=== PATIENT | male | born 1960 | race Caucasian/White ===

== ENCOUNTER → 2017-09-07 09:12 | Outpatient (CLI) | payer OTHER, MEDICAID, SELFPAY ==
[2017-09-07 09:30] LABS: Bacteria Urine None Seen; RBC Urine None Seen (0-5/HPF); WBC Urine None Seen (0-5/HPF)
[2017-09-07 10:53] LABS: Appearance Urine UA CLEAR; Bilirubin Urine UA NEGATIVE (NEGATIVE); Color Urine UA YELLOW; Glucose Urine UA NEGATIVE (Normal); Ketones Urine UA NEGATIVE (NEGATIVE); Leukocyte Esterase Urine UA NEGATIVE (NEGATIVE); Nitrite Urine UA Negative (Negative); Occult Blood Urine UA TRACE-LYSED (Negative); Protein Urine UA NEGATIVE (Negative); Urobilinogen Urine UA 0.2 E.U./dL (0.2)
[2017-09-07 11:34] LABS: Amorphous Sediment Urine 2+; Culture Indicated Urine Cult Not Indicated
[2017-09-07 11:55] LABS: Add Manual Diff / Slide Review NO; Basophils Percent Auto 1.2 % (0-2); Eosinophils Percent Auto 2.2 % (2-4); Hematocrit 49.7 % (41-53); Hemoglobin 17.2 g/dL (13.5-17.5); Lymphocytes Percent Auto 14.6 % (25-40); Mean Corpuscular HGB Conc 34.6 % (30-36); Mean Corpuscular Hemoglobin 34.1 PG (26-34); Mean Corpuscular Volume 98.5 fL (80-100); Monocytes Percent Auto 9.2 % (3-14); Neutrophils Absolute Auto 3800 /uL (3000-5900); Neutrophils Percent Auto 72.8 % (50-75); Platelet Count 207 X10^3/uL (150-400); Red Blood Cell Count 5.05 X10^6/uL (4.5-5.9); Red Cell Distribution Width 12.7 % (11.6-14.8); White Blood Cell Count 5.2 X10^3/uL (4.5-11.0)
[2017-09-07 12:27] LABS: Alanine Aminotransferase 37 IU/L (21-72); Albumin 4.3 g/dL (3.5-5.0); Alkaline Phosphatase 35 U/L (38-126); Aspartate Aminotransferase 35 IU/L (17-59); BUN Creatinine Ratio 13.3 (6-22); Bilirubin Total 0.7 mg/dL (0.2-1.3); Blood Urea Nitrogen 8 mg/dL (9-20); Calcium 9.2 mg/dL (8.4-10.2); Carbon Dioxide 31 mmol/L (22-32); Chloride 95 mmol/L (98-107); Cholesterol 166 mg/dL (140-199); Estimated Glomerular Filt Rate > 60.0 mL/min (>60); Globulin 2.1 g/dL (1.7-4.1); Glucose 72 mg/dL (70-100); HDL Cholesterol 55 mg/dL (40-60); HEMOLYSIS < 15 (0-50); LDL Cholesterol Calculated 95 mg/dL (<100); Potassium 4.3 mmol/L (3.4-5.1); Sodium 135 mmol/L (137-145); Total Protein 6.4 g/dL (6.3-8.2); Triglycerides 79 mg/dL (35-150)
[2017-09-07 12:55] LABS: Prostate Specific Antigen 0.408 ng/mL (0.10-4.00); Thyroid Stimulating Hormone 2.58 uIU/mL (0.47-4.68)
== END ==
PROVIDERS: PCP Family Medicine; Visit Provider Family Medicine
DX: R39.11 Hesitancy of micturition (principal); I25.10 Atherosclerotic heart disease of native coronary artery without angina pectoris; I10 Essential (primary) hypertension
CPT/HCPCS: 36415; 80053; 80061; 81001; 84153; 84443; 85025

== ENCOUNTER 2017-10-07 16:51 | Emergency (ER) | payer OTHER, MEDICAID, SELFPAY ==
[2017-10-07 16:59] VITALS: BP 157/90; PULSE 68; RESP 20; TEMP 36.7; O2SAT 99; BMI 21.2
--- NOTE | 2017-10-07 17:02 | ED.NEUROSD ---
HPI - Neuro Symptoms/Deficit <KT Gonzalez - Last Filed: 10/07/17 22:20> General Chief Complaint: Neuro Symptoms/Deficit Stated Complaint: SENT FOR STROKE WORK UP Time Seen by Provider: 10/07/17 17:20 History of Present Illness HPI Narrative: 57-year-old male sent here for rule out of stroke. Patient states that he has pain into his left hip/buttockss. Pain is also to his left back and radiates down into the left hip/buttocks area down left leg. He was able ambulate in the emergency room. He denies any unilateral weakness. He denies any loss of conscious no headache. No fevers no chills. He denies any other symptoms other than the pain into his left hip and left buttock/leg. He states that he started having pain a yesterday. Worsened a little bit today. He does state that he lifted a heavy box a couple days ago. He denies any loss of bladder or bowel control. No trauma to the area reported although he did say he had a fall where he accidentally tripped a few days ago. No other concerns or complaints. Related Data Home Medications Medication Instructions Recorded Confirmed Lactobacillus acidophilus capsule 1 cap PO DAILY cap 08/28/17 10/07/17 Ubiquinol 50 mg PO DAILY 08/28/17 10/07/17 albuterol sulfate HFA 90 1 puff INHALATION Q4H PRN 08/28/17 10/07/17 mcg/actuation aerosol inhaler methocarbamol 750 mg tablet 750 mg PO BID PRN tab 08/28/17 10/07/17 nitroglycerin 0.4 mg sublingual 0.4 mg SL Q5-15M PRN 08/28/17 10/07/17 tablet tamsulosin 0.4 mg capsule 0.4 mg PO DAILY 08/28/17 10/07/17 trazodone 50 mg tablet 50 - 100 mg PO BEDTIME PRN 08/28/17 10/07/17 acetaminophen 750 mg PO QID 10/07/17 10/07/17 aspirin 81 mg PO DAILY 10/07/17 10/07/17 budesonide 2 puff INHALATION BID 10/07/17 10/07/17 calcium carbonate 2 tab PO BID 10/07/17 10/07/17 carvedilol 1 tab PO BID 10/07/17 10/07/17 cholecalciferol (vitamin D3) 2,000 units PO DAILY 10/07/17 10/07/17 [Vitamin D3] cyanocobalamin (vitamin B-12) 1,000 mcg PO DAILY 10/07/17 10/07/17 [Vitamin B-12] diphenhydramine HCl 50 mg PO BEDTIME PRN 10/07/17 10/07/17 escitalopram oxalate [Lexapro] 10 mg PO DAILY 10/07/17 10/07/17 loratadine 10 mg PO DAILY PRN 10/07/17 10/07/17 magnesium oxide 200 mg PO BEDTIME 10/07/17 10/07/17 multivitamin with minerals 1 tab PO DAILY 10/07/17 10/07/17 simethicone [Mi-Acid Gas Relief] 1 tab PO QID PRN 10/07/17 10/07/17 Previous Rx's Medication Instructions Recorded fexofenadine 180 mg tablet 180 mg PO DAILY #30 tab 09/21/17 tramadol 50 mg tablet 50 mg PO Q6H #120 tab 09/23/17 clotrimazole 1 % topical cream 1 applictn TOP BID #30 gram 09/29/17 lorazepam 1 mg tablet 1 mg PO BID PRN #60 tab 10/06/17 methocarbamol 500 mg PO QID #10 tab 10/07/17 prednisone 20 mg PO DAILY #4 tab 10/07/17 Allergies Allergy/AdvReac Type Severity Reaction Status Date / Time iodine Allergy Intermediate itching, Verified 10/06/17 09:03 swelling latex Allergy Intermediate rash, Verified 10/06/17 09:03 itching procaine [From Novocain] Allergy Intermediate increased Verified 10/06/17 09:03 heart rate atorvastatin AdvReac Intermediate Verified 10/06/17 09:03 lactase [From Dairy Aid] AdvReac Intermediate upset Verified 10/06/17 09:03 stomach montelukast [From Singulair] AdvReac Intermediate causes Verified 10/06/17 09:03 depression to worsen prednisone AdvReac Intermediate makes Verified 10/06/17 09:03 patient feel wired, heart racing Proton Pump Inhibitors AdvReac Intermediate upset Verified 10/06/17 09:03 stomach NSAIDS (Non-Steroidal AdvReac Mild GI upset Verified 10/06/17 09:03 Anti-Inflamma peanuts Allergy Severe swelling Uncoded 08/28/17 13:54 of tongue and throat Review of Systems <KT Gonzalez - Last Filed: 10/07/17 22:20> Constitutional Denies chills, Denies fever(s), Denies lethargy and Denies weakness Eyes Denies change in vision, Denies eye discharge, Denies irritation and Denies loss of vision ENT Ears, Nose, Mouth, and Throat: Denies change in voice, Denies neck pain and Denies sore throat Cardiovascular Denies chest pain, Denies irregular heart rhythm, Denies lightheadedness, Denies palpitations, Denies dyspnea, Denies dyspnea on exertion and Denies orthopnea Respiratory Denies cough, Denies dyspnea, Denies dyspnea on exertion and Denies wheezing Gastrointestinal Gastrointestinal: Denies abdominal pain, Denies change in bowel habits, Denies diarrhea, Denies nausea and Denies vomiting Genitourinary Denies hematuria, Denies flank pain, Denies urinary incontinence and Denies urinary urgency Musculoskeletal Denies neck pain Comments: Left lower back, buttocks and leg pain Integumentary/Breasts Denies pruritus, Denies erythema, Denies rash and Denies wounds Neurologic Denies confusion, Denies loss of vision and Denies weakness Psychiatric Denies anxiety, Denies confusion, Denies depression, Denies homicidal ideation and Denies suicidal ideation Endocrine Denies palpitations Hematologic/Lymphatic Denies easy bruising Allergic/Immunologic Denies wheezing Exam <KT Gonzalez - Last Filed: 10/07/17 22:20> Initial Vital Signs Initial Vital Signs: Vital Signs Temperature 98.1 F 10/07/17 16:59 Pulse Rate 68 10/07/17 16:59 Respiratory Rate 20 10/07/17 16:59 Blood Pressure 157/90 H 10/07/17 16:59 Pulse Oximetry 99 10/07/17 16:59 Const General: cooperative and well developed Nutritional Appearance: well nourished Orientation: alert, awake, oriented x3 and not confused HENSD Mouth: oral mucosae normal and moist mucous membranes Eyes Eyelids: eyelids normal Conjunctivae: conjunctivae normal Sclera: sclerae normal Pupils: PERRL Cardio Rate: regular rate Rhythm: regular rhythm Heart Sounds: no click, no gallops, no murmurs and no rubs Pulses: normal peripheral pulses Back/Spine/Pelvis Other: Tenderness to palpation to the left lumbar paraspinals radiated into the left buttocks and to the left thigh. Distal sensation is intact. Distal range of motion is intact. Distal pulses are intact. Skin General: no rashes or lesions noted, No jaundice and No petechiae Neuro General: alert, oriented x3, gait normal and no focal motor deficits Speech: speech normal <Jazz Marsh DO - Last Filed: 10/08/17 05:13> Initial Vital Signs Initial Vital Signs: Vital Signs Temperature 98.1 F 10/07/17 16:59 Pulse Rate 68 10/07/17 16:59 Respiratory Rate 20 10/07/17 16:59 Blood Pressure 157/90 H 10/07/17 16:59 Pulse Oximetry 99 10/07/17 16:59 Scores <KT Gonzalez - Last Filed: 10/07/17 22:20> NIH Stroke Scale Level of Conciousness: Alert, keenly responsive Ask month/age: Answers both questions correctly. Open/close eyes, close hand: Performs both tasks correctly Best gaze horizontal: Normal Visual house: No visual loss Facial palsy: Normal symetrical movement Left arm drift: No drift for full 10 sec Right arm drift: No drift for full 10 sec Left leg drift: No drift for full 10 sec Right leg drift: No drift for full 10 sec Limb ataxia: Absent Sensory on face/arms/legs: Normal, no sensory loss Best language: No aphasia, normal Dysarthria: Normal Extinction or inattention: No abnormality Total NIH Stroke scale score: 0 Course <KT Gonzalez - Last Filed: 10/07/17 22:20> Orders Ordered: ED Orders 10/07/17 17:18 XR hip w pel if done LT 2V Stat Vital Signs - 8 hr 10/07/17 16:59 10/07/17 17:38 10/07/17 18:07 Temperature 98.1 F Pulse Rate 68 70 60 Respiratory Rate 20 18 13 Blood Pressure 157/90 H Blood Pressure [Left Arm] 134/78 H 128/79 H Pulse Oximetry 99 97 98 10/07/17 18:41 Temperature Pulse Rate 58 L Respiratory Rate 18 Blood Pressure 127/74 H Blood Pressure [Left Arm] Pulse Oximetry 98 <Jazz Marsh DO - Last Filed: 10/08/17 05:13> Orders Ordered: ED Orders 10/07/17 17:18 XR hip w pel if done LT 2V Stat Vital Signs - 8 hr 10/07/17 16:59 10/07/17 17:38 10/07/17 18:07 Temperature 98.1 F Pulse Rate 68 70 60 Respiratory Rate 20 18 13 Blood Pressure 157/90 H Blood Pressure [Left Arm] 134/78 H 128/79 H Pulse Oximetry 99 97 98 10/07/17 18:41 Temperature Pulse Rate 58 L Respiratory Rate 18 Blood Pressure 127/74 H Blood Pressure [Left Arm] Pulse Oximetry 98 MDM - Neuro Symptoms/Deficit <KT Gonzalez - Last Filed: 10/07/17 22:20> Imaging Data Left hip : Radiologist's impression: PROCEDURE: XR HIP W PEL IF DONE LT 2V INDICATIONS: Pain left hip is since yesterday states fell a couple days a TECHNIQUE: AP pelvis with lateral view(s) of the left hip(s). COMPARISON: None. FINDINGS: Bones: No fractures or dislocations. Pelvic ring appears intact. No suspicious bony lesions. Soft tissues: The visualized bowel gas pattern is normal. No suspicious soft tissue calcifications. IMPRESSION: No acute fractures or dislocations. If there is clinical concern for a radiographically occult fracture than a noncontrast MRI would be recommended for further evaluation. Dictated by: Elan Daly M.D. on 10/07/2017 at 17:47 Approved by: Elan Daly M.D. on 10/07/2017 at 17:47 [facility] Narrative Medical decision making narrative: NIH stroke scale of 0-no neurological deficits appreciated on exam. X-ray of the left hip was obtained due to report of fall a few days ago and was negative for any acute fractures. Signs and symptoms presents as lumbar strain with sciatica. [id number] Tylenol as needed for any discomfort. Cyclobenzaprine as prescribed to help with any muscle tension. Short course of prednisone is given to help with anti-inflammatory effects. Follow up with primary care provider the next few days for re-evaluation. For any worsening symptoms return to the emergency room. Discharge Plan Departure Patient Disposition: Home, Self-Care Clinical Impression: Lower back pain Discharge Date/Time: 10/07/17 18:42 Interventions: ED Discharge Assessment Last Done: 10/07/17 18:41 Instructions: DI for Back Strain or Sprain Activity Restrictions/Additional Instructions: X-ray of the left hip was obtained was negative for any acute findings. Neurological exam is normal today. Signs and symptoms presents as lower back strain with sciatica. Use [id number] Tylenol as needed for any discomfort. Muscle relaxer cyclobenzaprine as prescribed use as directed no driving while on the muscle relaxers a can make you feel drowsy. Short course of prednisone is given for anti-inflammatory effects. Follow up with her primary care provider the next few days. Return emergency room for any worsening symptoms. Prescriptions: New prednisone 20 mg tablet 20 mg PO DAILY Qty: 4 RF: 0 methocarbamol 500 mg tablet 500 mg PO QID Qty: 10 RF: 0 No Action lorazepam 1 mg tablet 1 mg PO BID PRN (Reason: anxiety) Qty: 60 RF: 0 trazodone 50 mg tablet 50 - 100 mg PO BEDTIME PRN (Reason: Sleep) RF: 0 methocarbamol 750 mg tablet 750 mg PO BID PRN (Reason: Muscle Spasm) RF: 0 tamsulosin 0.4 mg capsule,extended release 24hr 0.4 mg PO DAILY RF: 0 nitroglycerin [Nitrostat] 0.4 mg tablet, sublingual 0.4 mg SL Q5-15M PRN (Reason: Chest Pain) RF: 0 Lactobacillus acidophilus capsule 1 cap PO DAILY RF: 0 albuterol sulfate [Ventolin HFA] 90 mcg/actuation HFA aerosol inhaler 1 puff INHALATION Q4H PRN (Reason: Wheezing) RF: 0 Ubiquinol capsule 50 mg PO DAILY RF: 0 tramadol 50 mg tablet 50 mg PO Q6H Qty: 120 RF: 0 fexofenadine [Sharon Allergy] 180 mg tablet 180 mg PO DAILY Qty: 30 RF: 0 clotrimazole 1 % cream 1 applictn TOP BID Qty: 30 RF: 0 carvedilol 12.5 mg tablet 1 tab PO BID RF: 0 simethicone [Mi-Acid Gas Relief] 80 mg tablet,chewable 1 tab PO QID PRN (Reason: flatulence) RF: 0 cyanocobalamin (vitamin B-12) [Vitamin B-12] 1,000 mcg Tablet Extended Release 1,000 mcg PO DAILY RF: 0 aspirin 81 mg Tablet,Delayed Release (Dr/Ec) 81 mg PO DAILY RF: 0 acetaminophen 500 mg Tablet 750 mg PO QID RF: 0 diphenhydramine HCl 25 mg Tablet 50 mg PO BEDTIME PRN (Reason: Itching) RF: 0 calcium carbonate 200 mg calcium (500 mg) Tablet,Chewable 2 tab PO BID RF: 0 multivitamin with minerals Tablet 1 tab PO DAILY RF: 0 loratadine 10 mg Tablet 10 mg PO DAILY PRN (Reason: Allergy Symptoms) RF: 0 cholecalciferol (vitamin D3) [Vitamin D3] 1,000 unit Capsule 2,000 units PO DAILY RF: 0 escitalopram oxalate [Lexapro] 10 mg Tablet 10 mg PO DAILY RF: 0 budesonide 180 mcg/actuation Aerosol Powdr Breath Activated 2 puff Inhalation BID RF: 0 magnesium oxide 200 mg magnesium Tablet 200 mg PO BEDTIME RF: 0 Referrals: Haydee Iqbal DO [Primary Care Provider] - <Jazz Marsh DO - Last Filed: 10/08/17 05:13> Cosign ED Attending Cosignature Attestation: I was immediately available in the department for consultation. Documentation has been reviewed. I agree with assessment and plan.
--- NOTE | 2017-10-07 17:18 | DI.RAD.S_ITS ---
PROCEDURE: XR HIP W PEL IF DONE LT 2V INDICATIONS: Pain left hip is since yesterday states fell a couple days a TECHNIQUE: AP pelvis with lateral view(s) of the left hip(s). COMPARISON: None. FINDINGS: Bones: No fractures or dislocations. Pelvic ring appears intact. No suspicious bony lesions. Soft tissues: The visualized bowel gas pattern is normal. No suspicious soft tissue calcifications. IMPRESSION: No acute fractures or dislocations. If there is clinical concern for a radiographically occult fracture than a noncontrast MRI would be recommended for further evaluation. Dictated by: Elan Daly M.D. on 10/07/2017 at 17:47 Approved by: Elan Daly M.D. on 10/07/2017 at 17:47
--- NOTE | 2017-10-07 17:31 | PC.NURSE ---
patient reports pain in his left lower back that radiates down his left buttocks/hip and down the anterior left leg. Denies any falls today but reports that he lifted some heavy groceries.
[2017-10-07 17:38] VITALS: BP 134/78; PULSE 70; RESP 18; O2SAT 97
[2017-10-07 18:07] VITALS: BP 128/79; PULSE 60; RESP 13; O2SAT 98
[2017-10-07 18:41] VITALS: BP 127/74; PULSE 58; RESP 18; O2SAT 98
== END 2017-10-07 18:42 | disposition home or self-care (01) ==
PROVIDERS: Emergency Provider Nurse Practitioner Family; Family Provider Family Medicine; PCP Family Medicine
DX: M54.9 Dorsalgia, unspecified (principal)
CPT/HCPCS: 73502; 99283; 99291

== ENCOUNTER → 2017-11-19 12:44 | Outpatient (CLI) | payer OTHER, MEDICAID, SELFPAY ==
--- NOTE | 2017-11-19 | DI.ECHO.S_ITS ---
[place] [facility]---------+ [facility] +---------+ : : [address] [place] : : : : [id number] : : : : Phone: [phone] Echocardiogram Report + + :Name: JIGAR BENAVIDES Study Date: 11/19/2017 Height: 69 in : :[facility] Exam Location: [facility] Weight: 145 lb : : Gender: Male BSA: 1.8 m2 : :: 1960 Age: 57 yrs BP: 122/78 mmHg: :Reason For Study: Coronary Artery Disease : :Ordering Physician: Callum : :Kaila Performed By: Aviva Joshi : :Referring: CALLUM BRIGHT : + + Interpretation Summary The left ventricle is normal in size. The ejection fraction is estimated to be 55-60%. Possible mild hypokinesis along the basal/mid inferior and inferolateral wall. Assessment of diastolic parameters indicates a relaxation abnormality of the left ventricle, consistent with normal filling pressures. The right ventricle is normal in size and function. Pulmonary artery pressures cannot be estimated because of the lack of a measurable TR jet velocity. There is borderline biatrial enlargement. There is mild mitral regurgitation. There is no other significant valvular heart disease. The aortic root is normal size. Procedure: A two-dimensional transthoracic echocardiogram with color flow and Doppler was performed. The study quality was technically adequate. There is no prior echocardiogram noted for this patient. The patient was in normal sinus rhythm during the exam. Left Ventricle: The left ventricle is normal in size. There is normal left ventricular wall thickness. The ejection fraction is estimated to be 55-60%. Possible mild hypokinesis along the basal/mid inferior and inferolateral wall. Assessment of diastolic parameters indicates a relaxation abnormality of the left ventricle, consistent with normal filling pressures. Right Ventricle: The right ventricle is normal in size and function. Atria: There is borderline biatrial enlargement. The interatrial septum is intact with no evidence for an atrial septal defect. Mitral Valve: The mitral valve is normal in structure and function. There is mild mitral regurgitation. Aortic Valve: The aortic valve is trileaflet. The aortic valve opens well. There is trace aortic regurgitation. Tricuspid Valve: The tricuspid valve is normal in structure and function. There is a trace or physiologic amount of tricuspid regurgitation. Pulmonary artery pressures cannot be estimated because of the lack of a measurable TR jet velocity. Pulmonic Valve: The pulmonic valve is not well seen, but is grossly normal. There is a trace or physiologic amount of pulmonic regurgitation. There is no other significant valvular heart disease. Great Vessels: The aortic root is normal size. The ascending aorta is normal in size. The IVC is of normal diameter and collapses greater than 50% with a sniff. This suggests a low right atrial pressure of 3 mm Hg. Pericardium/ Pleura There is no pericardial effusion. There is no pleural effusion. MMode/2D Measurements & Calculations LVIDd: 5.3 cm LVOT diam: 2.5 cm LVIDs: 3.7 cm Ao root diam: 3.9 cm FS: 30.0 % asc Aorta Diam: 3.4 cm EPSS: 0.65 cm Ao Arch Diam (Prox Trans): 2.6 cm IVSd: 0.93 cm LVPWd: 0.85 cm LV britt. diameter/BSA (cm/m^2): 3.0 LV sys. diameter/BSA (cm/m^2): 2.1 LA A2 area: 17.7 cm2 RA long axis: 4.7 cm LA A4 area: 17.2 cm2 RA area: 17.4 cm2 LA length (vol): 4.5 cm RA vol: 55.0 ml LA vol: 57.4 ml RA : 30.5 ml/m2 LA vol index: 31.9 ml/m2 TAPSE: 1.7 cm Doppler Measurements & Calculations Ao V2 max: 86.8 cm/sec LVOT Max Wilbert: 71.4 cm/sec Ao V2 mean: 61.4 cm/sec LV V1 max P.0 mmHg Ao max P.0 mmHg LV V1 VTI: 13.6 cm Ao mean P.6 mmHg RUPA(I,D): 3.9 cm2 Ao V2 VTI: 17.0 cm RUPA(V,D): 4.1 cm2 sev ratio: 0.80 RUPA indexed to BSA (cm^2/m^2): 2.2 MV E max wilbert: 33.6 cm/sec PA V2 max: 68.3 cm/sec MV A max wilbert: 42.9 cm/sec PA V2 mean: 45.6 cm/sec MV E/A: 0.78 PA mean P.96 mmHg Med Peak E' Wilbert: 5.2 cm/sec PA pr(Accel): 6.6 mmHg E/E' med: 6.5 Lat Peak E' Wilbert: 7.4 cm/sec E/E' lat: 4.6 E/e' average: 5.5 MV dec time: 0.22 sec Reading Physician:SANDY
== END ==
PROVIDERS: Family Provider Family Medicine; PCP Family Medicine; Visit Provider Internal Medicine Cardiovascular Disease
DX: I34.0 Nonrheumatic mitral (valve) insufficiency (principal); I25.10 Atherosclerotic heart disease of native coronary artery without angina pectoris
CPT/HCPCS: 93306

== ENCOUNTER → 2017-12-07 12:29 | Outpatient (CLI) | payer OTHER, MEDICAID, SELFPAY ==
[2017-12-07 14:47] LABS: Hep C Virus Ab w/Reflex Quant NEGATIVE s/c (NEGATIVE)
== END ==
PROVIDERS: PCP Family Medicine; Visit Provider Family Medicine
DX: Z13.9 Encounter for screening, unspecified (principal)
CPT/HCPCS: 36415; 86803

== ENCOUNTER → 2017-12-16 12:29 | Outpatient (CLI) | payer OTHER, MEDICAID, SELFPAY ==
--- NOTE | 2017-12-16 14:57 | DIET.PN ---
Met for an initial nutrition consultation. Pt appears anxious, having difficulty concentrating and blocking out conversation from adjacent room. States he has PTSD. Reports GI problems for 1 1/2 years; dx w/IBS. Tries to eat healthy- whole foods, organic. Is constipated all the time and without meds would never have a BM DX: IBS, constipation dominent. Meds include: MOM AM & PM, multiple meds for heart, depression, pain. Calcium (tot 1750mg daily), Mg-250mg, Vit D 2000IU, [id number], - all those plus MVI Probiotic FOOD ALLERGIES/INTOLERANCE: peanuts (allergy), dairy, eggs ASSESSMENT: Very conscientious eater. Eats no red meat, lots of vegs. Prunes and prune juice to control constipation. Current diet includes a lot of cruciferous vegs. INTERVENTION: Provided ed on IBS, possible foods aggravating IBS. Some patients w/constipation dominant IBS are sensitive to sulfer. Discussed role of emotions on GI health PLAN/GOALS: Avoid high sulfer foods (includes cruciferous vegs, onion, garlic) Keep food record F/U in 2 weeks. If sx do not subside w/DC of sulfer foods, try FODMAP elimination diet to determine other possible sources of problematic foods.
== END ==
PROVIDERS: PCP Family Medicine; Visit Provider Family Medicine
DX: K58.9 Irritable bowel syndrome, unspecified (principal)
CPT/HCPCS: 97802

== ENCOUNTER → 2017-12-30 13:02 | Outpatient (CLI) | payer OTHER, MEDICAID, SELFPAY ==
--- NOTE | 2017-12-31 13:38 | DIET.PN ---
Met for first F/U consult. Did not keep food record, but states he has it all in his mind. Eliminated all high sulfer foods - noticed less bloating but no difference in constipation. Has appt w/GI specialist tomorrow. Dx: IBS Assessment: Elimination of high sulfur foods not effective in helping constipation, though did help alliviate some sx of IBS. Current diet very limited r/t perceived intolerance and food dislikes. Intervention: Provided ed on FODMAP elimination diet, emphasizing need for accurate food/sx records. Plan/goal: Follow FODMAP elimination diet for 2 weeks and f/u to assess effectiveness.
== END ==
PROVIDERS: PCP Family Medicine; Visit Provider Family Medicine
DX: K58.9 Irritable bowel syndrome, unspecified (principal)
CPT/HCPCS: 97803

== ENCOUNTER 2018-01-12 12:00 | Outpatient (RCR) | payer OTHER, MEDICAID, SELFPAY ==
--- NOTE | 2017-12-09 12:39 | PT.OIE ---
Current Diagnoses Primary osteoarthritis, right shoulder (12/09/17) Pain in right shoulder (12/09/17) Stiffness of right shoulder, not elsewhere classified (12/09/17) Unspecified disorder of synovium and tendon, right shoulder (12/09/17) Bicipital tendinitis, right shoulder (12/09/17) Calcific tendinitis of right shoulder (12/09/17) Past Medical History (Last Reviewed 10/26/17 @ 14:20 by Haydee Iqbal DO) Anxiety (Chronic 1959) Asthma (Chronic 1977) Cataracts, bilateral (Chronic 2015) Chronic back pain (Chronic 1994) Constipation (Chronic Unknown) Coronary artery disease (Chronic 2004) Depression (Chronic 1959) Fibromyalgia (Chronic 1992) Frequent urination (Chronic 1999) Low testosterone (Chronic 2014) PTSD (post-traumatic stress disorder) (Chronic 1999) Chickenpox (Resolved Unknown) Colon polyps (Resolved 2016) Foot pain (Resolved 2015) Measles (Resolved Unknown) Myocardial infarction (Resolved 2004) Shoulder pain (Resolved 2016) Past Surgical History (Last Reviewed 10/26/17 @ 14:20 by Haydee Iqbal DO) History of throat surgery (Resolved 2010) Provider Visit Care Team Role Provider Type Haydee Iqbal DO Attending Provider Physician Family Provider Primary Care Provider Specialty: Family Practice Address: [address] [place] [address] Email: [email or web address] Physical Therapy Initial Evaluation PT-OP-A Visit Information Start: 12/09/17 12:01 Freq: Status: Active Protocol: Document 12/09/17 11:15 DCW (Rec: 12/09/17 12:37 [facility] [id number]) Out-Patient Physical Therapy Visit Information Visit Information Visit Type Initial Evaluation Visit Start Time 11:15 Visit Stop Time 12:00 Total Visit Minutes 45 Visit Number 1 Number of FIXED WING PILOT Visits 0 Evaluation Information Evaluation Date 12/09/17 PT-OP-B Current Condition Start: 12/09/17 12:01 Freq: Status: Active Protocol: Document 12/09/17 11:15 DCW (Rec: 12/09/17 12:37 [facility] [id number]) Current Condition History of Current Condition Onset Date one year Current Complaints Shoulder pain, decreased ROM History of Current Condition Pt is a 57 year old male presenting with a one year history of right shoulder pain . Pt notes no obvious trauma which began his pain, but notes he has been diagnosed with severe arthritis in his shoulder. Also admits to a fall onto his right side when tripping on his shoelaces crossing the street in May, which worsened his pain, but reports his pain had been ongoing prior to that incident . Pt notes his pain is generally a 6/10, but increased to an 8/10 with lifting or using his laptop mouse, and causes him to be unable to swing a golf club or do any deep cleaning in his apartment, like scrubbing the tub or tiles. Pt was previously seen by an Orthopedist, and was diagnosed with rotator cuff tendopathy, calcific tendonitis, and GH arthritis. Skilled PT was recommended, with an emphasis on ROM, R/C strengthening, STM , and modalities for pain control and decreased inflammation Treatment Goals Patient/Caregiver Goals Pt would like to return to golf, be able to clean his apartment with no pain, and be able to lift without pain. Current Functional Impairments (Reported) Functional Limitations- ADL's Unable to perform deep- cleaning activities at home Functional Limitations- Recreation/ Unable to swing a golf club Hobbies PT-OP-C Subjective Start: 12/09/17 12:01 Freq: Status: Active Protocol: Document 12/09/17 11:15 DCW (Rec: 12/09/17 12:37 DCW [id number]) Patient Questionnaires Quick Dash- Upper Extremity Quick Dash UE Score 43.18% Quick Dash UE Impairment 40 to 59% Impaired (Score 40- 59) OP-PT Pain Assessment Pain Assessment Grid Paper Pain Assessment Grid Completed Yes Location Right Shoulder Pain Location Details Anteriolateral Shoulder Intensity 6 Scale Used Numeric (1 - 10) Frequency Constant Pain Aggravating Factors Activity Lifting Pain Alleviating Factors Heat Inactivity PT-OP-E Functional Tests Start: 12/09/17 12:37 Freq: Status: Active Protocol: Document 12/09/17 11:15 DCW (Rec: 12/09/17 12:39 DCW [id number]) Functional Tests Vilmaey's Scratch Test Action 1: The subject is instructed to touch the opposite shoulder with his/her hand. This motion checks Glenohumeral adduction, internal rotation , horizontal adduction and scapular protraction Action 2: The subject is instructed to place his/her arm overhead and reach behind the neck to touch his/her upper back. This motion checks Glenohumeral abduction, external rotation and scapular upward rotation and elevation. Action 3: The subject puts his/her hand on the lower back and reaches upward as far as possible. This motion checks glenohumeral adduction, internal rotation and scapular retraction with downward rotation Action 1- Left Posterior opposite Shoulder Action 1- Right Posterior opposite Shoulder Action 2- Left T4 Action 2- Right T1 Action 3- Left T5 Action 3- Right T12 PT-OP-F Manual Assessment Start: 12/09/17 12:01 Freq: Status: Active Protocol: Document 12/09/17 11:15 DCW (Rec: 12/09/17 12:37 DCW [id number]) Manual Assessments Soft Tissue Assessment Soft Tissue Mobility Assessment Biceps Tendon - Tenderness to Palpation 3/4 = Wincing and withdrawal Subacromial Space - Tenderness to Palpation 3/4 = Wincing and withdrawal Infraspinatus - Tenderness to Palpation 2/4 = Pain with Wincing Supraspinatus - Tenderness to Palpation 2/4 = Pain with Wincing PT-OP-J Posture/Palpation/Skin Start: 12/09/17 12:01 Freq: Status: Active Protocol: Document 12/09/17 11:15 DCW (Rec: 12/09/17 12:37 DCW [id number]) Posture Evaluation Position Sitting Evaluation View Anterior Shoulder Posture (R) Forward (R) Elevated PT-OP-K Range of Motion Start: 12/09/17 12:01 Freq: Status: Active Protocol: Document 12/09/17 11:15 DCW (Rec: 12/09/17 12:37 [facility] [id number]) Shoulder Goniometric Range of Motion Shoulder Measured in Degrees Right Active Testing Position Sitting Flexion 154 Abduction 118 External Rotation at 0 degrees Abduction 30 Left Active Shoulder ROM WFL Yes Shoulder ROM Limitations Shoulder ROM Limitations Pain PT-OP-L Special Tests Start: 12/09/17 12:01 Freq: Status: Active Protocol: Document 12/09/17 11:15 DCW (Rec: 12/09/17 12:37 [facility] [id number]) Special Tests Shoulder Special Tests Saran's Biceps Test Results Positive Speed's Biceps Test Results Positive Neer Impingement Test Results Positive Lift-Off Rotator Cuff Test Results Difficulty lifting Peguero Alfred Impingement Test Results Positive Drop Arm Rotator Cuff Test Results Negative Biceps Load II Test Test Results Significant Pain Belly Press Test Results Mild Anterior pain AC Joint Compression Test Results Negative PT-OP-M Strength Start: 12/09/17 12:01 Freq: Status: Active Protocol: Document 12/09/17 11:15 DCW (Rec: 12/09/17 12:37 DCW [id number]) Shoulder Strength Shoulder Manual Muscle Testing Right Flexion 4- Good- Abduction (C5) 4- Good- External Rotation 4 Good Internal Rotation 4 Good Comments Pt appeared to be limited secondary to pain rather than true muscle weakness PT-OP-T Assessment and Plan Start: 12/09/17 12:01 Freq: Status: Active Protocol: Document 12/09/17 11:15 DCW (Rec: 12/09/17 12:37 DC [id number]) Physical Therapy Assessment Rehab Potential Rehabilitation Potential Good Evaluation Complexity Number of Personal Factors/Comorbidities 3 or More Number of Body Systems Impaired 4 or More Clinical Presentation at Evaluation Evolving Impairments Impairments Activity Tolerance Functional Activities Pain Posture ROM Soft Tissue Mobility Strength Other Concerns Barriers to Rehabilitation HTN, Fibromyalgia, Cardiovascular disease, Anxiety/PTSD, Osteoarthritis Goals Five Impairment Appley Scratch Test Senior Care Goal (LTG) Right shoulder = Left Shoulder LTG Duration 02/08/18 Four Impairment Right shoulder weakness Short Term Goal (STG) R shoulder MMT to grossly 4+/5 STG Duration 01/08/18 Three Impairment Limited ROM Short Term Goal (STG) Pt right shoulder ROM to WNL STG Duration 01/08/18 Senior Care Goal (LTG) Pt right shoulder ROM to pain- free WNL LTG Duration 02/08/18 Two Impairment Activity Participation Short Term Goal (STG) Pt to play 9 holes of golf with no increased symptoms STG Duration 01/08/18 Cfd Engineer Goal (LTG) Pt to scrub bathroom with no increased symptoms LTG Duration 02/08/18 One Impairment Pt does not have an independent home exercise program Short Term Goal (STG) Pt to be independent and consistent with an appropriate HEP STG Duration 01/08/18 Assessment Summary Assessment Pt presents with multiple shoulder limitations, with signs and symptoms most consistent with subacromial impingement, bicepital tendonitis, and supraspinatus calcific tendonitis. Pt should benefit from skilled therapy focusing on ROM and strengthening, Manual therapy to decrease muscle tone and increase subacromial joint space, modalities to decrease inflammation and pain, and taping. Additionally, pt may benefit from trial of Iontophoresis with Dexamethasone to decrease inflammation. Unfortunately, pt does have a history of anti -inflammatory medications causing a stomach ache, and if he does not tolerate Dexamethasone, may still benefit from Iontophoresis with Acetic Acid for treatment of Calcific Tendonitis. Physical Therapy Plan Frequency and Duration Frequency of Treatment 2x/Week Duration of Treatment 2 months Plan of Care Start Date 12/09/17 Plan of Care End Date 02/08/18 Therapeutic Interventions Therapeutic Interventions Aquatic Therapy Home Exercise Program Joint Mobilizations Manual Therapy Patient/Caregiver Education Self-Care/Home Management Soft Tissue Mobilization Taping Therapeutic Activities Therapeutic Exercises Modalities Cold Pack/Ice Massage Electric Stimulation Hot Packs Iontophoresis Ultrasound Next Visit Focus/Plan Next Note Type Treatment Note Next Visit Plan ROM, Strengthening, STM, joint mobilization
--- NOTE | 2017-12-15 14:11 | PT.OTN ---
Current Diagnoses Primary osteoarthritis, right shoulder (12/15/17) Unspecified disorder of synovium and tendon, right shoulder (12/15/17) Calcific tendinitis of right shoulder (12/15/17) Physical Therapy Treatment Note PT-OP-A Visit Information Start: 12/09/17 12:01 Freq: Status: Active Protocol: Document 12/15/17 12:00 GGD (Rec: 12/15/17 14:11 GGD [id number]) Out-Patient Physical Therapy Visit Information Visit Information Visit Type Treatment Note Visit Start Time 12:00 Visit Stop Time 12:50 Total Visit Minutes 50 Visit Number 2 Number of DIE FORGER Visits 1 Evaluation Information Evaluation Date 12/09/17 PT-OP-B Current Condition Start: 12/09/17 12:01 Freq: Status: Active Protocol: Document 12/09/17 11:15 DCW (Rec: 12/09/17 12:37 DCW [id number]) Current Condition History of Current Condition Onset Date one year Current Complaints Shoulder pain, decreased ROM History of Current Condition Pt is a 57 year old male presenting with a one year history of right shoulder pain . Pt notes no obvious trauma which began his pain, but notes he has been diagnosed with severe arthritis in his shoulder. Also admits to a fall onto his right side when tripping on his shoelaces crossing the street in May, which worsened his pain, but reports his pain had been ongoing prior to that incident . Pt notes his pain is generally a 6/10, but increased to an 8/10 with lifting or using his laptop mouse, and causes him to be unable to swing a golf club or do any deep cleaning in his apartment, like scrubbing the tub or tiles. Pt was previously seen by an Orthopedist, and was diagnosed with rotator cuff tendopathy, calcific tendonitis, and GH arthritis. Skilled PT was recommended, with an emphasis on ROM, R/C strengthening, STM , and modalities for pain control and decreased inflammation Treatment Goals Patient/Caregiver Goals Pt would like to return to golf, be able to clean his apartment with no pain, and be able to lift without pain. Current Functional Impairments (Reported) Functional Limitations- ADL's Unable to perform deep- cleaning activities at home Functional Limitations- Recreation/ Unable to swing a golf club Hobbies PT-OP-C Subjective Start: 12/09/17 12:01 Freq: Status: Active Protocol: Document 12/15/17 12:00 GGD (Rec: 12/15/17 14:11 GGD [email or web address]) OP-PT Subjective Patient Comments Patient Comments Pt states his shoulder is aches today. PT-OP-E Functional Tests Start: 12/09/17 12:37 Freq: Status: Active Protocol: Document 12/09/17 11:15 DCW (Rec: 12/09/17 12:39 DCW [id number]) Functional Tests Apley's Scratch Test Action 1: The subject is instructed to touch the opposite shoulder with his/her hand. This motion checks Glenohumeral adduction, internal rotation , horizontal adduction and scapular protraction Action 2: The subject is instructed to place his/her arm overhead and reach behind the neck to touch his/her upper back. This motion checks Glenohumeral abduction, external rotation and scapular upward rotation and elevation. Action 3: The subject puts his/her hand on the lower back and reaches upward as far as possible. This motion checks glenohumeral adduction, internal rotation and scapular retraction with downward rotation Action 1- Left Posterior opposite Shoulder Action 1- Right Posterior opposite Shoulder Action 2- Left T4 Action 2- Right T1 Action 3- Left T5 Action 3- Right T12 PT-OP-F Manual Assessment Start: 12/09/17 12:01 Freq: Status: Active Protocol: Document 12/09/17 11:15 DCW (Rec: 12/09/17 12:37 DCW [id number]) Manual Assessments Soft Tissue Assessment Soft Tissue Mobility Assessment Biceps Tendon - Tenderness to Palpation 3/4 = Wincing and withdrawal Subacromial Space - Tenderness to Palpation 3/4 = Wincing and withdrawal Infraspinatus - Tenderness to Palpation 2/4 = Pain with Wincing Supraspinatus - Tenderness to Palpation 2/4 = Pain with Wincing PT-OP-J Posture/Palpation/Skin Start: 12/09/17 12:01 Freq: Status: Active Protocol: Document 12/09/17 11:15 DCW (Rec: 12/09/17 12:37 DCW [id number]) Posture Evaluation Position Sitting Evaluation View Anterior Shoulder Posture (R) Forward (R) Elevated PT-OP-K Range of Motion Start: 12/09/17 12:01 Freq: Status: Active Protocol: Document 12/09/17 11:15 DCW (Rec: 12/09/17 12:37 DCW [id number]) Shoulder Goniometric Range of Motion Shoulder Measured in Degrees Right Active Testing Position Sitting Flexion 154 Abduction 118 External Rotation at 0 degrees Abduction 30 Left Active Shoulder ROM WFL Yes Shoulder ROM Limitations Shoulder ROM Limitations Pain PT-OP-L Special Tests Start: 12/09/17 12:01 Freq: Status: Active Protocol: Document 12/09/17 11:15 DCW (Rec: 12/09/17 12:37 DCW [id number]) Special Tests Shoulder Special Tests Yergason's Biceps Test Results Positive Speed's Biceps Test Results Positive Neer Impingement Test Results Positive Lift-Off Rotator Cuff Test Results Difficulty lifting Peguero Alfred Impingement Test Results Positive Drop Arm Rotator Cuff Test Results Negative Biceps Load II Test Test Results Significant Pain Belly Press Test Results Mild Anterior pain AC Joint Compression Test Results Negative PT-OP-M Strength Start: 12/09/17 12:01 Freq: Status: Active Protocol: Document 12/09/17 11:15 DCW (Rec: 12/09/17 12:37 DCW [id number]) Shoulder Strength Shoulder Manual Muscle Testing Right Flexion 4- Good- Abduction (C5) 4- Good- External Rotation 4 Good Internal Rotation 4 Good Comments Pt appeared to be limited secondary to pain rather than true muscle weakness PT-OP-Q Treatments Start: 12/09/17 12:01 Freq: Status: Active Protocol: Document 12/15/17 12:00 GGD (Rec: 12/15/17 14:11 GGD [email or web address]) Cardio Equipment Upper Body Ergometer (UBE) Duration (Minutes) 4 RPM 90 Therapeutic Exercises Supine Exercises 3 Supine Exercise Name supine punches Side right Resistance 3# Reps/Minutes 10 2 Supine Exercise Name Wand ER Side right 1 Supine Exercise Name Wand flexion Side right Standing Exercises 2 Standing Exercise Name Shoulder extension Side bilateral Resistance Level 2 Equipment Used Thara band Reps/Minutes 20 1 Standing Exercise Name rows Side right Resistance level 2 Reps/Minutes 20 Manual Therapy Treatment Soft Tissue Mobilization 1 Body Location UT, pec, infraspinatus Mobilization Type Myofascial Release Sustained Pressure Intensity/Depth Superficial Body Position Hooklying Joint Mobilizations 1 Joint glenohumeral Direction posterior, inferior Grade II Body Position Hooklying PT-OP-R Modalities Start: 12/09/17 12:01 Freq: Status: Active Protocol: Document 12/15/17 12:00 GGD (Rec: 12/15/17 14:11 GGD [id number]) Hot Pack/Cold Pack Treatment Hot Pack Location right shoulder Patient Position Hooklying Treatment Duration (minutes) 10 Patient Tolerance Good PT-OP-T Assessment and Plan Start: 12/09/17 12:01 Freq: Status: Active Protocol: Document 12/15/17 12:00 GGD (Rec: 12/15/17 14:11 GGD [email or web address]) Physical Therapy Assessment Assessment Summary Assessment Pt fatigued quickly with strengthening exercise. He had good tolerance to AAROM. He was tender with STM and joint mobs. Physical Therapy Plan Frequency and Duration Frequency of Treatment 2x/Week Duration of Treatment 2 months Plan of Care Start Date 12/09/17 Plan of Care End Date 02/08/18 Next Visit Focus/Plan Next Note Type Treatment Note Next Visit Plan Review exercises, progress ROM and strengthening.
--- NOTE | 2017-12-17 14:28 | PT.OTN ---
Current Diagnoses Primary osteoarthritis, right shoulder (12/17/17) Unspecified disorder of synovium and tendon, right shoulder (12/17/17) Calcific tendinitis of right shoulder (12/17/17) Physical Therapy Treatment Note PT-OP-A Visit Information Start: 12/09/17 12:01 Freq: Status: Active Protocol: Document 12/17/17 13:45 DCW (Rec: 12/17/17 14:28 DCW [id number]) Out-Patient Physical Therapy Visit Information Visit Information Visit Type Treatment Note Visit Start Time 13:45 Visit Stop Time 14:35 Total Visit Minutes 50 Visit Number 3 Number of TRANSPORTATION ECONOMICS TEACHER Visits 0 Evaluation Information Evaluation Date 12/09/17 PT-OP-B Current Condition Start: 12/09/17 12:01 Freq: Status: Active Protocol: Document 12/09/17 11:15 DCW (Rec: 12/09/17 12:37 DCW [id number]) Current Condition History of Current Condition Onset Date one year Current Complaints Shoulder pain, decreased ROM History of Current Condition Pt is a 57 year old male presenting with a one year history of right shoulder pain . Pt notes no obvious trauma which began his pain, but notes he has been diagnosed with severe arthritis in his shoulder. Also admits to a fall onto his right side when tripping on his shoelaces crossing the street in May, which worsened his pain, but reports his pain had been ongoing prior to that incident . Pt notes his pain is generally a 6/10, but increased to an 8/10 with lifting or using his laptop mouse, and causes him to be unable to swing a golf club or do any deep cleaning in his apartment, like scrubbing the tub or tiles. Pt was previously seen by an Orthopedist, and was diagnosed with rotator cuff tendopathy, calcific tendonitis, and GH arthritis. Skilled PT was recommended, with an emphasis on ROM, R/C strengthening, STM , and modalities for pain control and decreased inflammation Treatment Goals Patient/Caregiver Goals Pt would like to return to golf, be able to clean his apartment with no pain, and be able to lift without pain. Current Functional Impairments (Reported) Functional Limitations- ADL's Unable to perform deep- cleaning activities at home Functional Limitations- Recreation/ Unable to swing a golf club Hobbies PT-OP-C Subjective Start: 12/09/17 12:01 Freq: Status: Active Protocol: Document 12/17/17 13:45 DCW (Rec: 12/17/17 14:28 DCW [id number]) OP-PT Subjective Patient Comments Patient Comments Pt reports he fell in his apartment last week, landing on his right elbow PT-OP-E Functional Tests Start: 12/09/17 12:37 Freq: Status: Active Protocol: Document 12/09/17 11:15 DCW (Rec: 12/09/17 12:39 DCW [id number]) Functional Tests Apley's Scratch Test Action 1: The subject is instructed to touch the opposite shoulder with his/her hand. This motion checks Glenohumeral adduction, internal rotation , horizontal adduction and scapular protraction Action 2: The subject is instructed to place his/her arm overhead and reach behind the neck to touch his/her upper back. This motion checks Glenohumeral abduction, external rotation and scapular upward rotation and elevation. Action 3: The subject puts his/her hand on the lower back and reaches upward as far as possible. This motion checks glenohumeral adduction, internal rotation and scapular retraction with downward rotation Action 1- Left Posterior opposite Shoulder Action 1- Right Posterior opposite Shoulder Action 2- Left T4 Action 2- Right T1 Action 3- Left T5 Action 3- Right T12 PT-OP-F Manual Assessment Start: 12/09/17 12:01 Freq: Status: Active Protocol: Document 12/09/17 11:15 DCW (Rec: 12/09/17 12:37 DCW [id number]) Manual Assessments Soft Tissue Assessment Soft Tissue Mobility Assessment Biceps Tendon - Tenderness to Palpation 3/4 = Wincing and withdrawal Subacromial Space - Tenderness to Palpation 3/4 = Wincing and withdrawal Infraspinatus - Tenderness to Palpation 2/4 = Pain with Wincing Supraspinatus - Tenderness to Palpation 2/4 = Pain with Wincing PT-OP-J Posture/Palpation/Skin Start: 12/09/17 12:01 Freq: Status: Active Protocol: Document 12/09/17 11:15 DCW (Rec: 12/09/17 12:37 DCW [id number]) Posture Evaluation Position Sitting Evaluation View Anterior Shoulder Posture (R) Forward (R) Elevated PT-OP-K Range of Motion Start: 12/09/17 12:01 Freq: Status: Active Protocol: Document 12/09/17 11:15 DCW (Rec: 12/09/17 12:37 DCW [id number]) Shoulder Goniometric Range of Motion Shoulder Measured in Degrees Right Active Testing Position Sitting Flexion 154 Abduction 118 External Rotation at 0 degrees Abduction 30 Left Active Shoulder ROM WFL Yes Shoulder ROM Limitations Shoulder ROM Limitations Pain PT-OP-L Special Tests Start: 12/09/17 12:01 Freq: Status: Active Protocol: Document 12/09/17 11:15 DCW (Rec: 12/09/17 12:37 DCW [id number]) Special Tests Shoulder Special Tests Yergason's Biceps Test Results Positive Speed's Biceps Test Results Positive Neer Impingement Test Results Positive Lift-Off Rotator Cuff Test Results Difficulty lifting Peguero Alfred Impingement Test Results Positive Drop Arm Rotator Cuff Test Results Negative Biceps Load II Test Test Results Significant Pain Belly Press Test Results Mild Anterior pain AC Joint Compression Test Results Negative PT-OP-M Strength Start: 12/09/17 12:01 Freq: Status: Active Protocol: Document 12/09/17 11:15 DCW (Rec: 12/09/17 12:37 DCW [id number]) Shoulder Strength Shoulder Manual Muscle Testing Right Flexion 4- Good- Abduction (C5) 4- Good- External Rotation 4 Good Internal Rotation 4 Good Comments Pt appeared to be limited secondary to pain rather than true muscle weakness PT-OP-Q Treatments Start: 12/09/17 12:01 Freq: Status: Active Protocol: Document 12/17/17 13:45 DCW (Rec: 12/17/17 14:28 DCW [id number]) Cardio Equipment Upper Body Ergometer (UBE) Duration (Minutes) 4 RPM 60 Therapeutic Exercises Sitting Exercises GH Pulleys Sitting Exercise Name Flexion, Abduction, Internal Rotation Standing Exercises Shoulder Extension Standing Exercise Name Ext /c wand Shoulder flexion Standing Exercise Name Flex /c wand Side bilateral 2 Standing Exercise Name Shoulder extension Side bilateral Resistance Level 2 Equipment Used Thara band Reps/Minutes 20 1 Standing Exercise Name rows Side right Resistance level 2 Reps/Minutes 20 Manual Therapy Treatment Soft Tissue Mobilization 1 Body Location UT, pec, infraspinatus Mobilization Type Myofascial Release Sustained Pressure Intensity/Depth Superficial Body Position Hooklying Joint Mobilizations 1 Joint glenohumeral Direction posterior, inferior Grade II Body Position Hooklying PT-OP-R Modalities Start: 12/09/17 12:01 Freq: Status: Active Protocol: Document 12/17/17 13:45 DCW (Rec: 12/17/17 14:28 DCW [id number]) Hot Pack/Cold Pack Treatment Hot Pack Location right shoulder Patient Position Hooklying Treatment Duration (minutes) 10 Patient Tolerance Good PT-OP-T Assessment and Plan Start: 12/09/17 12:01 Freq: Status: Active Protocol: Document 12/17/17 13:45 DCW (Rec: 12/17/17 14:28 DCW [id number]) Physical Therapy Assessment Impairments Impairments Activity Tolerance Functional Activities Pain Posture ROM Soft Tissue Mobility Strength Goals Five Impairment Appley Scratch Test Paper Products Machine Operator Goal (LTG) Right shoulder = Left Shoulder LTG Duration 02/08/18 Four Impairment Right shoulder weakness Short Term Goal (STG) R shoulder MMT to grossly 4+/5 STG Duration 01/08/18 Three Impairment Limited ROM Short Term Goal (STG) Pt right shoulder ROM to WNL STG Duration 01/08/18 Fpc Goal (LTG) Pt right shoulder ROM to pain- free WNL LTG Duration 02/08/18 Two Impairment Activity Participation Short Term Goal (STG) Pt to play 9 holes of golf with no increased symptoms STG Duration 01/08/18 Fpc Goal (LTG) Pt to scrub bathroom with no increased symptoms LTG Duration 02/08/18 One Impairment Pt does not have an independent home exercise program Short Term Goal (STG) Pt to be independent and consistent with an appropriate HEP STG Duration 01/08/18 Assessment Summary Assessment Pt tenderness continues, however he is tolerating more TherEx more than last visit. Physical Therapy Plan Frequency and Duration Frequency of Treatment 2x/Week Duration of Treatment 2 months Plan of Care Start Date 12/09/17 Plan of Care End Date 02/08/18 Therapeutic Interventions Therapeutic Interventions Aquatic Therapy Home Exercise Program Joint Mobilizations Manual Therapy Patient/Caregiver Education Self-Care/Home Management Soft Tissue Mobilization Taping Therapeutic Activities Therapeutic Exercises Modalities Cold Pack/Ice Massage Electric Stimulation Hot Packs Iontophoresis Ultrasound Next Visit Focus/Plan Next Note Type Treatment Note Next Visit Plan Review exercises, progress ROM and strengthening.
--- NOTE | 2017-12-22 16:05 | PT.OTN ---
Current Diagnoses Primary osteoarthritis, right shoulder (12/22/17) Unspecified disorder of synovium and tendon, right shoulder (12/22/17) Calcific tendinitis of right shoulder (12/22/17) Physical Therapy Treatment Note PT-OP-A Visit Information Start: 12/09/17 12:01 Freq: Status: Active Protocol: Document 12/22/17 12:19 EA (Rec: 12/22/17 12:57 EA [id number]) Out-Patient Physical Therapy Visit Information Visit Information Visit Type Treatment Note Visit Start Time 12:15 Visit Stop Time 13:05 Total Visit Minutes 50 Visit Number 4 Number of CONTROL ROOM OPERATOR Visits 0 PT-OP-B Current Condition Start: 12/09/17 12:01 Freq: Status: Active Protocol: Document 12/09/17 11:15 DCW (Rec: 12/09/17 12:37 DCW [id number]) Current Condition History of Current Condition Onset Date one year Current Complaints Shoulder pain, decreased ROM History of Current Condition Pt is a 57 year old male presenting with a one year history of right shoulder pain . Pt notes no obvious trauma which began his pain, but notes he has been diagnosed with severe arthritis in his shoulder. Also admits to a fall onto his right side when tripping on his shoelaces crossing the street in May, which worsened his pain, but reports his pain had been ongoing prior to that incident . Pt notes his pain is generally a 6/10, but increased to an 8/10 with lifting or using his laptop mouse, and causes him to be unable to swing a golf club or do any deep cleaning in his apartment, like scrubbing the tub or tiles. Pt was previously seen by an Orthopedist, and was diagnosed with rotator cuff tendopathy, calcific tendonitis, and GH arthritis. Skilled PT was recommended, with an emphasis on ROM, R/C strengthening, STM , and modalities for pain control and decreased inflammation Treatment Goals Patient/Caregiver Goals Pt would like to return to golf, be able to clean his apartment with no pain, and be able to lift without pain. Current Functional Impairments (Reported) Functional Limitations- ADL's Unable to perform deep- cleaning activities at home Functional Limitations- Recreation/ Unable to swing a golf club Hobbies PT-OP-C Subjective Start: 12/09/17 12:01 Freq: Status: Active Protocol: Document 12/22/17 12:58 EA (Rec: 12/22/17 12:59 EA [id number]) OP-PT Subjective Patient Comments Patient Comments Patient rfeports right shoulder pain increased after doing laundry; states demar is constant and wake him up in the evening. Patient denies any overhead activities. Patient Reported Progress Same PT-OP-E Functional Tests Start: 12/09/17 12:37 Freq: Status: Active Protocol: Document 12/09/17 11:15 DCW (Rec: 12/09/17 12:39 DCW [id number]) Functional Tests Apley's Scratch Test Action 1: The subject is instructed to touch the opposite shoulder with his/her hand. This motion checks Glenohumeral adduction, internal rotation , horizontal adduction and scapular protraction Action 2: The subject is instructed to place his/her arm overhead and reach behind the neck to touch his/her upper back. This motion checks Glenohumeral abduction, external rotation and scapular upward rotation and elevation. Action 3: The subject puts his/her hand on the lower back and reaches upward as far as possible. This motion checks glenohumeral adduction, internal rotation and scapular retraction with downward rotation Action 1- Left Posterior opposite Shoulder Action 1- Right Posterior opposite Shoulder Action 2- Left T4 Action 2- Right T1 Action 3- Left T5 Action 3- Right T12 PT-OP-F Manual Assessment Start: 12/09/17 12:01 Freq: Status: Active Protocol: Document 12/09/17 11:15 DCW (Rec: 12/09/17 12:37 DCW [id number]) Manual Assessments Soft Tissue Assessment Soft Tissue Mobility Assessment Biceps Tendon - Tenderness to Palpation 3/4 = Wincing and withdrawal Subacromial Space - Tenderness to Palpation 3/4 = Wincing and withdrawal Infraspinatus - Tenderness to Palpation 2/4 = Pain with Wincing Supraspinatus - Tenderness to Palpation 2/4 = Pain with Wincing PT-OP-J Posture/Palpation/Skin Start: 12/09/17 12:01 Freq: Status: Active Protocol: Document 12/09/17 11:15 DCW (Rec: 12/09/17 12:37 DCW [id number]) Posture Evaluation Position Sitting Evaluation View Anterior Shoulder Posture (R) Forward (R) Elevated PT-OP-K Range of Motion Start: 12/09/17 12:01 Freq: Status: Active Protocol: Document 12/09/17 11:15 DCW (Rec: 12/09/17 12:37 DCW [id number]) Shoulder Goniometric Range of Motion Shoulder Measured in Degrees Right Active Testing Position Sitting Flexion 154 Abduction 118 External Rotation at 0 degrees Abduction 30 Left Active Shoulder ROM WFL Yes Shoulder ROM Limitations Shoulder ROM Limitations Pain PT-OP-L Special Tests Start: 12/09/17 12:01 Freq: Status: Active Protocol: Document 12/09/17 11:15 DCW (Rec: 12/09/17 12:37 DCW [id number]) Special Tests Shoulder Special Tests Yergason's Biceps Test Results Positive Speed's Biceps Test Results Positive Neer Impingement Test Results Positive Lift-Off Rotator Cuff Test Results Difficulty lifting Peguero Alfred Impingement Test Results Positive Drop Arm Rotator Cuff Test Results Negative Biceps Load II Test Test Results Significant Pain Belly Press Test Results Mild Anterior pain AC Joint Compression Test Results Negative PT-OP-M Strength Start: 12/09/17 12:01 Freq: Status: Active Protocol: Document 12/09/17 11:15 DCW (Rec: 12/09/17 12:37 DCW [id number]) Shoulder Strength Shoulder Manual Muscle Testing Right Flexion 4- Good- Abduction (C5) 4- Good- External Rotation 4 Good Internal Rotation 4 Good Comments Pt appeared to be limited secondary to pain rather than true muscle weakness PT-OP-Q Treatments Start: 12/09/17 12:01 Freq: Status: Active Protocol: Document 12/22/17 12:19 EA (Rec: 12/22/17 12:57 EA [id number]) Cardio Equipment Upper Body Ergometer (UBE) Duration (Minutes) 6 RPM 60 Therapeutic Exercises Sitting Exercises GH Pulleys Sitting Exercise Name Flexion, Abduction, Internal Rotation Reps/Minutes x 5SH x 10 reps each. Standing Exercises Shoulder flexion Standing Exercise Name Flex /c wand Side bilateral 2 Standing Exercise Name Shoulder extension Side bilateral Resistance Level 2 Equipment Used Thara band Reps/Minutes 20 1 Standing Exercise Name rows Side right Resistance level 2 Reps/Minutes 20 Manual Therapy Treatment Soft Tissue Mobilization 1 Body Location UT, pec, infraspinatus Mobilization Type Myofascial Release Sustained Pressure Intensity/Depth Superficial Body Position Hooklying Joint Mobilizations 1 Joint glenohumeral Direction posterior, inferior Grade II Body Position Hooklying PT-OP-R Modalities Start: 12/09/17 12:01 Freq: Status: Active Protocol: Document 12/22/17 12:19 FREDERICK (Rec: 12/22/17 12:57 EA [id number]) Hot Pack/Cold Pack Treatment Hot Pack Location right shoulder Patient Position Hooklying Treatment Duration (minutes) 10 Patient Tolerance Good Ultrasound Therapy Treatment Right Anterior Shoulder Treatment Duration (minutes) 5 Patient Position Supine Frequency Setting (mHz) 1 Intensity Setting (w/cm2) 1.0 PT-OP-T Assessment and Plan Start: 12/09/17 12:01 Freq: Status: Active Protocol: Document 12/22/17 12:19 FREDERICK (Rec: 12/22/17 12:57 EA [id number]) Physical Therapy Assessment Assessment Summary Assessment Tolerated treatment. anterior right shoulder still operator. Patient recommended ice pack application x 2 per day and decrease heavy lifting using the right shoulder. Physical Therapy Plan Next Visit Focus/Plan Next Note Type Treatment Note Next Visit Plan Review exercises, progress ROM and strengthening.
--- NOTE | 2017-12-25 13:21 | PT.OTN ---
Current Diagnoses Primary osteoarthritis, right shoulder (12/25/17) Unspecified disorder of synovium and tendon, right shoulder (12/25/17) Calcific tendinitis of right shoulder (12/25/17) Physical Therapy Treatment Note PT-OP-A Visit Information Start: 12/09/17 12:01 Freq: Status: Active Protocol: Document 12/22/17 12:19 EA (Rec: 12/22/17 12:57 EA [id number]) Out-Patient Physical Therapy Visit Information Visit Information Visit Type Treatment Note Visit Start Time 12:15 Visit Stop Time 13:05 Total Visit Minutes 50 Visit Number 4 Number of MEDIA LAW FACULTY MEMBER Visits 0 PT-OP-B Current Condition Start: 12/09/17 12:01 Freq: Status: Active Protocol: Document 12/09/17 11:15 DCW (Rec: 12/09/17 12:37 DCW [id number]) Current Condition History of Current Condition Onset Date one year Current Complaints Shoulder pain, decreased ROM History of Current Condition Pt is a 57 year old male presenting with a one year history of right shoulder pain . Pt notes no obvious trauma which began his pain, but notes he has been diagnosed with severe arthritis in his shoulder. Also admits to a fall onto his right side when tripping on his shoelaces crossing the street in May, which worsened his pain, but reports his pain had been ongoing prior to that incident . Pt notes his pain is generally a 6/10, but increased to an 8/10 with lifting or using his laptop mouse, and causes him to be unable to swing a golf club or do any deep cleaning in his apartment, like scrubbing the tub or tiles. Pt was previously seen by an Orthopedist, and was diagnosed with rotator cuff tendopathy, calcific tendonitis, and GH arthritis. Skilled PT was recommended, with an emphasis on ROM, R/C strengthening, STM , and modalities for pain control and decreased inflammation Treatment Goals Patient/Caregiver Goals Pt would like to return to golf, be able to clean his apartment with no pain, and be able to lift without pain. Current Functional Impairments (Reported) Functional Limitations- ADL's Unable to perform deep- cleaning activities at home Functional Limitations- Recreation/ Unable to swing a golf club Hobbies PT-OP-C Subjective Start: 12/09/17 12:01 Freq: Status: Active Protocol: Document 12/25/17 13:06 SA (Rec: 12/25/17 13:20 SA [id number]) OP-PT Subjective Patient Comments Patient Comments Pt reports increased R shoulde pain after doing laundry and grocery shipping. Patient Reported Progress Same PT-OP-E Functional Tests Start: 12/09/17 12:37 Freq: Status: Active Protocol: Document 12/09/17 11:15 DCW (Rec: 12/09/17 12:39 DCW [id number]) Functional Tests Apley's Scratch Test Action 1: The subject is instructed to touch the opposite shoulder with his/her hand. This motion checks Glenohumeral adduction, internal rotation , horizontal adduction and scapular protraction Action 2: The subject is instructed to place his/her arm overhead and reach behind the neck to touch his/her upper back. This motion checks Glenohumeral abduction, external rotation and scapular upward rotation and elevation. Action 3: The subject puts his/her hand on the lower back and reaches upward as far as possible. This motion checks glenohumeral adduction, internal rotation and scapular retraction with downward rotation Action 1- Left Posterior opposite Shoulder Action 1- Right Posterior opposite Shoulder Action 2- Left T4 Action 2- Right T1 Action 3- Left T5 Action 3- Right T12 PT-OP-F Manual Assessment Start: 12/09/17 12:01 Freq: Status: Active Protocol: Document 12/09/17 11:15 DCW (Rec: 12/09/17 12:37 DCW [id number]) Manual Assessments Soft Tissue Assessment Soft Tissue Mobility Assessment Biceps Tendon - Tenderness to Palpation 3/4 = Wincing and withdrawal Subacromial Space - Tenderness to Palpation 3/4 = Wincing and withdrawal Infraspinatus - Tenderness to Palpation 2/4 = Pain with Wincing Supraspinatus - Tenderness to Palpation 2/4 = Pain with Wincing PT-OP-J Posture/Palpation/Skin Start: 12/09/17 12:01 Freq: Status: Active Protocol: Document 12/09/17 11:15 DCW (Rec: 12/09/17 12:37 DCW [id number]) Posture Evaluation Position Sitting Evaluation View Anterior Shoulder Posture (R) Forward (R) Elevated PT-OP-K Range of Motion Start: 12/09/17 12:01 Freq: Status: Active Protocol: Document 12/09/17 11:15 DCW (Rec: 12/09/17 12:37 [facility] [id number]) Shoulder Goniometric Range of Motion Shoulder Measured in Degrees Right Active Testing Position Sitting Flexion 154 Abduction 118 External Rotation at 0 degrees Abduction 30 Left Active Shoulder ROM WFL Yes Shoulder ROM Limitations Shoulder ROM Limitations Pain PT-OP-L Special Tests Start: 12/09/17 12:01 Freq: Status: Active Protocol: Document 12/09/17 11:15 DCW (Rec: 12/09/17 12:37 [facility] [id number]) Special Tests Shoulder Special Tests Yergason's Biceps Test Results Positive Speed's Biceps Test Results Positive Neer Impingement Test Results Positive Lift-Off Rotator Cuff Test Results Difficulty lifting Peguero Alfred Impingement Test Results Positive Drop Arm Rotator Cuff Test Results Negative Biceps Load II Test Test Results Significant Pain Belly Press Test Results Mild Anterior pain AC Joint Compression Test Results Negative PT-OP-M Strength Start: 12/09/17 12:01 Freq: Status: Active Protocol: Document 12/09/17 11:15 DCW (Rec: 12/09/17 12:37 [facility] [id number]) Shoulder Strength Shoulder Manual Muscle Testing Right Flexion 4- Good- Abduction (C5) 4- Good- External Rotation 4 Good Internal Rotation 4 Good Comments Pt appeared to be limited secondary to pain rather than true muscle weakness PT-OP-Q Treatments Start: 12/09/17 12:01 Freq: Status: Active Protocol: Document 12/25/17 13:06 SA (Rec: 12/25/17 13:20 SA [id number]) Cardio Equipment Upper Body Ergometer (UBE) Duration (Minutes) 5 RPM 60 Therapeutic Exercises Supine Exercises 3 Supine Exercise Name Scapular protraction Reps/Minutes 20 Sidelying Exercises Shoulder ER Resistance none Reps/Minutes 20 Sitting Exercises GH Pulleys Sitting Exercise Name Flexion, Abduction, Internal Rotation Reps/Minutes x 5SH x 10 reps each. Standing Exercises Shoulder flexion Standing Exercise Name Flex /c wand Side bilateral 2 Standing Exercise Name Shoulder extension Side bilateral Resistance Level 2 Equipment Used Thara band Reps/Minutes 20 1 Standing Exercise Name rows Side right Resistance level 2 Reps/Minutes 20 Manual Therapy Treatment Soft Tissue Mobilization 1 Body Location UT, pec, infraspinatus Mobilization Type Myofascial Release Sustained Pressure Intensity/Depth Superficial Body Position Hooklying PT-OP-R Modalities Start: 12/09/17 12:01 Freq: Status: Active Protocol: Document 12/25/17 13:06 SA (Rec: 12/25/17 13:20 SA [id number]) Hot Pack/Cold Pack Treatment Hot Pack Location right shoulder Patient Position Supine Treatment Duration (minutes) 10 Patient Tolerance Good PT-OP-T Assessment and Plan Start: 12/09/17 12:01 Freq: Status: Active Protocol: Document 12/25/17 13:06 SA (Rec: 12/25/17 13:20 [id number]) Physical Therapy Assessment Rehab Potential Rehabilitation Potential Good Assessment Summary Assessment Tolerated treatment well, states he prefers Hot pack vs cold pack Physical Therapy Plan Next Visit Focus/Plan Next Note Type Treatment Note Next Visit Plan Education provided regarding sleep position and work station set up with handout given to reduce irritation of R shoulder.
--- NOTE | 2017-12-29 13:32 | PT.OTN ---
Current Diagnoses Primary osteoarthritis, right shoulder (12/29/17) Unspecified disorder of synovium and tendon, right shoulder (12/29/17) Calcific tendinitis of right shoulder (12/29/17) Physical Therapy Treatment Note PT-OP-A Visit Information Start: 12/09/17 12:01 Freq: Status: Active Protocol: Document 12/22/17 12:19 EA (Rec: 12/22/17 12:57 EA [id number]) Out-Patient Physical Therapy Visit Information Visit Information Visit Type Treatment Note Visit Start Time 12:15 Visit Stop Time 13:05 Total Visit Minutes 50 Visit Number 4 Number of SPOT MAN Visits 0 PT-OP-B Current Condition Start: 12/09/17 12:01 Freq: Status: Active Protocol: Document 12/09/17 11:15 DCW (Rec: 12/09/17 12:37 DCW [id number]) Current Condition History of Current Condition Onset Date one year Current Complaints Shoulder pain, decreased ROM History of Current Condition Pt is a 57 year old male presenting with a one year history of right shoulder pain . Pt notes no obvious trauma which began his pain, but notes he has been diagnosed with severe arthritis in his shoulder. Also admits to a fall onto his right side when tripping on his shoelaces crossing the street in May, which worsened his pain, but reports his pain had been ongoing prior to that incident . Pt notes his pain is generally a 6/10, but increased to an 8/10 with lifting or using his laptop mouse, and causes him to be unable to swing a golf club or do any deep cleaning in his apartment, like scrubbing the tub or tiles. Pt was previously seen by an Orthopedist, and was diagnosed with rotator cuff tendopathy, calcific tendonitis, and GH arthritis. Skilled PT was recommended, with an emphasis on ROM, R/C strengthening, STM , and modalities for pain control and decreased inflammation Treatment Goals Patient/Caregiver Goals Pt would like to return to golf, be able to clean his apartment with no pain, and be able to lift without pain. Current Functional Impairments (Reported) Functional Limitations- ADL's Unable to perform deep- cleaning activities at home Functional Limitations- Recreation/ Unable to swing a golf club Hobbies PT-OP-C Subjective Start: 12/09/17 12:01 Freq: Status: Active Protocol: Document 12/29/17 13:22 SA (Rec: 12/29/17 13:32 SA [email or web address]) OP-PT Subjective Patient Comments Patient Comments [place] and my shoulder is painful today. Patient Reported Progress Same PT-OP-E Functional Tests Start: 12/09/17 12:37 Freq: Status: Active Protocol: Document 12/09/17 11:15 DCW (Rec: 12/09/17 12:39 DCW [id number]) Functional Tests Apley's Scratch Test Action 1: The subject is instructed to touch the opposite shoulder with his/her hand. This motion checks Glenohumeral adduction, internal rotation , horizontal adduction and scapular protraction Action 2: The subject is instructed to place his/her arm overhead and reach behind the neck to touch his/her upper back. This motion checks Glenohumeral abduction, external rotation and scapular upward rotation and elevation. Action 3: The subject puts his/her hand on the lower back and reaches upward as far as possible. This motion checks glenohumeral adduction, internal rotation and scapular retraction with downward rotation Action 1- Left Posterior opposite Shoulder Action 1- Right Posterior opposite Shoulder Action 2- Left T4 Action 2- Right T1 Action 3- Left T5 Action 3- Right T12 PT-OP-F Manual Assessment Start: 12/09/17 12:01 Freq: Status: Active Protocol: Document 12/09/17 11:15 DCW (Rec: 12/09/17 12:37 DCW [id number]) Manual Assessments Soft Tissue Assessment Soft Tissue Mobility Assessment Biceps Tendon - Tenderness to Palpation 3/4 = Wincing and withdrawal Subacromial Space - Tenderness to Palpation 3/4 = Wincing and withdrawal Infraspinatus - Tenderness to Palpation 2/4 = Pain with Wincing Supraspinatus - Tenderness to Palpation 2/4 = Pain with Wincing PT-OP-J Posture/Palpation/Skin Start: 12/09/17 12:01 Freq: Status: Active Protocol: Document 12/09/17 11:15 DCW (Rec: 12/09/17 12:37 DCW [id number]) Posture Evaluation Position Sitting Evaluation View Anterior Shoulder Posture (R) Forward (R) Elevated PT-OP-K Range of Motion Start: 12/09/17 12:01 Freq: Status: Active Protocol: Document 12/09/17 11:15 DCW (Rec: 12/09/17 12:37 [facility] [id number]) Shoulder Goniometric Range of Motion Shoulder Measured in Degrees Right Active Testing Position Sitting Flexion 154 Abduction 118 External Rotation at 0 degrees Abduction 30 Left Active Shoulder ROM WFL Yes Shoulder ROM Limitations Shoulder ROM Limitations Pain PT-OP-L Special Tests Start: 12/09/17 12:01 Freq: Status: Active Protocol: Document 12/09/17 11:15 DCW (Rec: 12/09/17 12:37 [facility] [id number]) Special Tests Shoulder Special Tests Yergason's Biceps Test Results Positive Speed's Biceps Test Results Positive Neer Impingement Test Results Positive Lift-Off Rotator Cuff Test Results Difficulty lifting Peguero Alfred Impingement Test Results Positive Drop Arm Rotator Cuff Test Results Negative Biceps Load II Test Test Results Significant Pain Belly Press Test Results Mild Anterior pain AC Joint Compression Test Results Negative PT-OP-M Strength Start: 12/09/17 12:01 Freq: Status: Active Protocol: Document 12/09/17 11:15 DCW (Rec: 12/09/17 12:37 DC [id number]) Shoulder Strength Shoulder Manual Muscle Testing Right Flexion 4- Good- Abduction (C5) 4- Good- External Rotation 4 Good Internal Rotation 4 Good Comments Pt appeared to be limited secondary to pain rather than true muscle weakness PT-OP-Q Treatments Start: 12/09/17 12:01 Freq: Status: Active Protocol: Document 12/29/17 13:22 SA (Rec: 12/29/17 13:32 SA [email or web address]) Cardio Equipment Upper Body Ergometer (UBE) Duration (Minutes) 6 RPM 60 Therapeutic Exercises Supine Exercises 3 Supine Exercise Name Scapular protraction with 0# as pt could not tolerate 1# Side right Sidelying Exercises Shoulder ER Sidelying Exercise Name shoulder ER with no weight Side right Sitting Exercises GH Pulleys Side bilateral Reps/Minutes 2 minutes Standing Exercises Shoulder Extension Side bilateral Reps/Minutes 20 Shoulder flexion Side bilateral Reps/Minutes 20 2 Standing Exercise Name Scapular retraction Side bilateral Resistance #2 Theraband Manual Therapy Treatment Soft Tissue Mobilization 1 Mobilization Type Rolling Trigger Point Release Intensity/Depth Moderate Body Position Supine Comments R shoulder, upper traps, scalenes Taping R shoulder Kinesio taping Type of Tape Kinesio Tape PT-OP-R Modalities Start: 12/09/17 12:01 Freq: Status: Active Protocol: Document 12/29/17 13:22 (Rec: 12/29/17 13:32 [email or web address]) Hot Pack/Cold Pack Treatment Hot Pack Patient Position Supine Patient Tolerance Good Comments 10 minutes PT-OP-T Assessment and Plan Start: 12/09/17 12:01 Freq: Status: Active Protocol: Document 12/29/17 13:22 (Rec: 12/29/17 13:32 [email or web address]) Physical Therapy Plan Next Visit Focus/Plan Next Note Type Treatment Note Next Visit Plan Re-assess Kinesio taping, continue with shoulder strengthening ther ex, re visit work station set up as pt is to obtain new office chair.
--- NOTE | 2018-01-01 15:38 | PT.OTN ---
Current Diagnoses Primary osteoarthritis, right shoulder (01/01/18) Unspecified disorder of synovium and tendon, right shoulder (01/01/18) Calcific tendinitis of right shoulder (01/01/18) Physical Therapy Treatment Note PT-OP-A Visit Information Start: 12/09/17 12:01 Freq: Status: Active Protocol: Document 12/29/17 13:22 SA (Rec: 12/30/17 15:08 SA [id number]) Out-Patient Physical Therapy Visit Information Visit Information Visit Type Treatment Note Visit Start Time 12:15 Visit Stop Time 13:12 Visit Number 6 Number of GARDENING MANAGER Visits 2 Evaluation Information Evaluation Date 12/09/17 PT-OP-B Current Condition Start: 12/09/17 12:01 Freq: Status: Active Protocol: Document 12/09/17 11:15 DCW (Rec: 12/09/17 12:37 DCW [id number]) Current Condition History of Current Condition Onset Date one year Current Complaints Shoulder pain, decreased ROM History of Current Condition Pt is a 57 year old male presenting with a one year history of right shoulder pain . Pt notes no obvious trauma which began his pain, but notes he has been diagnosed with severe arthritis in his shoulder. Also admits to a fall onto his right side when tripping on his shoelaces crossing the street in May, which worsened his pain, but reports his pain had been ongoing prior to that incident . Pt notes his pain is generally a 6/10, but increased to an 8/10 with lifting or using his laptop mouse, and causes him to be unable to swing a golf club or do any deep cleaning in his apartment, like scrubbing the tub or tiles. Pt was previously seen by an Orthopedist, and was diagnosed with rotator cuff tendopathy, calcific tendonitis, and GH arthritis. Skilled PT was recommended, with an emphasis on ROM, R/C strengthening, STM , and modalities for pain control and decreased inflammation Treatment Goals Patient/Caregiver Goals Pt would like to return to golf, be able to clean his apartment with no pain, and be able to lift without pain. Current Functional Impairments (Reported) Functional Limitations- ADL's Unable to perform deep- cleaning activities at home Functional Limitations- Recreation/ Unable to swing a golf club Hobbies PT-OP-C Subjective Start: 12/09/17 12:01 Freq: Status: Active Protocol: Document 01/01/18 15:24 SA (Rec: 01/01/18 15:37 SA [email or web address]) OP-PT Subjective Patient Comments Patient Comments Feeling pretty good, I think the tapin really helped. Still having some pain but not as intense. OP-PT Pain Assessment Location Right Shoulder Pain Location Details R shoulder Intensity 3 Scale Used Numeric (1 - 10) Description With Movement PT-OP-E Functional Tests Start: 12/09/17 12:37 Freq: Status: Active Protocol: Document 12/09/17 11:15 DCW (Rec: 12/09/17 12:39 DCW [id number]) Functional Tests Apley's Scratch Test Action 1: The subject is instructed to touch the opposite shoulder with his/her hand. This motion checks Glenohumeral adduction, internal rotation , horizontal adduction and scapular protraction Action 2: The subject is instructed to place his/her arm overhead and reach behind the neck to touch his/her upper back. This motion checks Glenohumeral abduction, external rotation and scapular upward rotation and elevation. Action 3: The subject puts his/her hand on the lower back and reaches upward as far as possible. This motion checks glenohumeral adduction, internal rotation and scapular retraction with downward rotation Action 1- Left Posterior opposite Shoulder Action 1- Right Posterior opposite Shoulder Action 2- Left T4 Action 2- Right T1 Action 3- Left T5 Action 3- Right T12 PT-OP-F Manual Assessment Start: 12/09/17 12:01 Freq: Status: Active Protocol: Document 12/09/17 11:15 DCW (Rec: 12/09/17 12:37 DCW [id number]) Manual Assessments Soft Tissue Assessment Soft Tissue Mobility Assessment Biceps Tendon - Tenderness to Palpation 3/4 = Wincing and withdrawal Subacromial Space - Tenderness to Palpation 3/4 = Wincing and withdrawal Infraspinatus - Tenderness to Palpation 2/4 = Pain with Wincing Supraspinatus - Tenderness to Palpation 2/4 = Pain with Wincing PT-OP-J Posture/Palpation/Skin Start: 12/09/17 12:01 Freq: Status: Active Protocol: Document 12/09/17 11:15 DCW (Rec: 12/09/17 12:37 DCW [id number]) Posture Evaluation Position Sitting Evaluation View Anterior Shoulder Posture (R) Forward (R) Elevated PT-OP-K Range of Motion Start: 12/09/17 12:01 Freq: Status: Active Protocol: Document 12/09/17 11:15 DCW (Rec: 12/09/17 12:37 DCW [id number]) Shoulder Goniometric Range of Motion Shoulder Measured in Degrees Right Active Testing Position Sitting Flexion 154 Abduction 118 External Rotation at 0 degrees Abduction 30 Left Active Shoulder ROM WFL Yes Shoulder ROM Limitations Shoulder ROM Limitations Pain PT-OP-L Special Tests Start: 12/09/17 12:01 Freq: Status: Active Protocol: Document 12/09/17 11:15 DCW (Rec: 12/09/17 12:37 KSW [id number]) Special Tests Shoulder Special Tests Yergaanna's Biceps Test Results Positive Speed's Biceps Test Results Positive Neer Impingement Test Results Positive Lift-Off Rotator Cuff Test Results Difficulty lifting Peguero Alfred Impingement Test Results Positive Drop Arm Rotator Cuff Test Results Negative Biceps Load II Test Test Results Significant Pain Belly Press Test Results Mild Anterior pain AC Joint Compression Test Results Negative PT-OP-M Strength Start: 12/09/17 12:01 Freq: Status: Active Protocol: Document 12/09/17 11:15 DCW (Rec: 12/09/17 12:37 DCW [id number]) Shoulder Strength Shoulder Manual Muscle Testing Right Flexion 4- Good- Abduction (C5) 4- Good- External Rotation 4 Good Internal Rotation 4 Good Comments Pt appeared to be limited secondary to pain rather than true muscle weakness PT-OP-Q Treatments Start: 12/09/17 12:01 Freq: Status: Active Protocol: Document 01/01/18 15:24 SA (Rec: 01/01/18 15:37 SA [email or web address]) Cardio Equipment Upper Body Ergometer (UBE) Duration (Minutes) 6 RPM 60 Therapeutic Exercises Supine Exercises 3 Supine Exercise Name Scapular protraction with 0# as pt could not tolerate 1# Side right Resistance 1# Reps/Minutes 20 Sidelying Exercises Shoulder ER Sidelying Exercise Name shoulder ER with no weight Side right Sitting Exercises GH Pulleys Side bilateral Reps/Minutes 2 minutes Standing Exercises scapular retraction Resistance 2# Theraband Reps/Minutes 20 Shoulder Extension Side bilateral Reps/Minutes 20 Shoulder flexion Standing Exercise Name Flex /c wand Side bilateral Reps/Minutes 20 Manual Therapy Treatment Soft Tissue Mobilization 1 Body Location UT, Interscap, Infraspinatus Mobilization Type Rolling Trigger Point Release Intensity/Depth Moderate Body Position Supine Comments R shoulder, upper traps, scalenes PT-OP-R Modalities Start: 12/09/17 12:01 Freq: Status: Active Protocol: Document 01/01/18 15:37 SA (Rec: 01/01/18 15:37 SA [email or web address]) Hot Pack/Cold Pack Treatment Hot Pack Patient Position Supine Treatment Duration (minutes) 10 Patient Tolerance Good PT-OP-T Assessment and Plan Start: 12/09/17 12:01 Freq: Status: Active Protocol: Document 01/01/18 15:24 SA (Rec: 01/01/18 15:37 SA [email or web address]) Physical Therapy Plan Frequency and Duration Frequency of Treatment 2x/Week Duration of Treatment 2 months Plan of Care Start Date 12/09/17 Plan of Care End Date 02/08/18 Therapeutic Interventions Other Therapeutic Interventions Re-applied Kinesio taping to R shoulder. Advised pt to remove tape at 3 days to avoid skin irritation. Next Visit Focus/Plan Next Note Type Treatment Note Next Visit Plan Progress scapular and shoulder strengtening program. Continued eduction for posture /positioning to avoid impingment.
--- NOTE | 2018-01-05 15:39 | PT.OTN ---
Current Diagnoses Primary osteoarthritis, right shoulder (01/05/18) Unspecified disorder of synovium and tendon, right shoulder (01/05/18) Calcific tendinitis of right shoulder (01/05/18) Physical Therapy Treatment Note PT-OP-A Visit Information Start: 12/09/17 12:01 Freq: Status: Active Protocol: Document 12/29/17 13:22 SA (Rec: 12/30/17 15:08 SA [id number]) Out-Patient Physical Therapy Visit Information Visit Information Visit Type Treatment Note Visit Start Time 12:15 Visit Stop Time 13:12 Visit Number 6 Number of FRAME MAKER Visits 2 Evaluation Information Evaluation Date 12/09/17 PT-OP-B Current Condition Start: 12/09/17 12:01 Freq: Status: Active Protocol: Document 12/09/17 11:15 DCW (Rec: 12/09/17 12:37 DCW [id number]) Current Condition History of Current Condition Onset Date one year Current Complaints Shoulder pain, decreased ROM History of Current Condition Pt is a 57 year old male presenting with a one year history of right shoulder pain . Pt notes no obvious trauma which began his pain, but notes he has been diagnosed with severe arthritis in his shoulder. Also admits to a fall onto his right side when tripping on his shoelaces crossing the street in May, which worsened his pain, but reports his pain had been ongoing prior to that incident . Pt notes his pain is generally a 6/10, but increased to an 8/10 with lifting or using his laptop mouse, and causes him to be unable to swing a golf club or do any deep cleaning in his apartment, like scrubbing the tub or tiles. Pt was previously seen by an Orthopedist, and was diagnosed with rotator cuff tendopathy, calcific tendonitis, and GH arthritis. Skilled PT was recommended, with an emphasis on ROM, R/C strengthening, STM , and modalities for pain control and decreased inflammation Treatment Goals Patient/Caregiver Goals Pt would like to return to golf, be able to clean his apartment with no pain, and be able to lift without pain. Current Functional Impairments (Reported) Functional Limitations- ADL's Unable to perform deep- cleaning activities at home Functional Limitations- Recreation/ Unable to swing a golf club Hobbies PT-OP-C Subjective Start: 12/09/17 12:01 Freq: Status: Active Protocol: Document 01/05/18 15:26 SA (Rec: 01/05/18 15:35 SA [email or web address]) OP-PT Subjective Patient Comments Patient Comments Pt has increased c/o shoulder pain today, blamces change in weather. Admits to being inconsistant with HEP. OP-PT Pain Assessment Location Right Shoulder Pain Location Details R shoulder Intensity 4 Scale Used Numeric (1 - 10) Description With Movement Other Pain Aggravating Factors Pt continues to work at work station with poor positioning PT-OP-E Functional Tests Start: 12/09/17 12:37 Freq: Status: Active Protocol: Document 12/09/17 11:15 DCW (Rec: 12/09/17 12:39 DCW [id number]) Functional Tests Apley's Scratch Test Action 1: The subject is instructed to touch the opposite shoulder with his/her hand. This motion checks Glenohumeral adduction, internal rotation , horizontal adduction and scapular protraction Action 2: The subject is instructed to place his/her arm overhead and reach behind the neck to touch his/her upper back. This motion checks Glenohumeral abduction, external rotation and scapular upward rotation and elevation. Action 3: The subject puts his/her hand on the lower back and reaches upward as far as possible. This motion checks glenohumeral adduction, internal rotation and scapular retraction with downward rotation Action 1- Left Posterior opposite Shoulder Action 1- Right Posterior opposite Shoulder Action 2- Left T4 Action 2- Right T1 Action 3- Left T5 Action 3- Right T12 PT-OP-F Manual Assessment Start: 12/09/17 12:01 Freq: Status: Active Protocol: Document 12/09/17 11:15 DCW (Rec: 12/09/17 12:37 DCW [id number]) Manual Assessments Soft Tissue Assessment Soft Tissue Mobility Assessment Biceps Tendon - Tenderness to Palpation 3/4 = Wincing and withdrawal Subacromial Space - Tenderness to Palpation 3/4 = Wincing and withdrawal Infraspinatus - Tenderness to Palpation 2/4 = Pain with Wincing Supraspinatus - Tenderness to Palpation 2/4 = Pain with Wincing PT-OP-J Posture/Palpation/Skin Start: 12/09/17 12:01 Freq: Status: Active Protocol: Document 12/09/17 11:15 DCW (Rec: 12/09/17 12:37 DCW [id number]) Posture Evaluation Position Sitting Evaluation View Anterior Shoulder Posture (R) Forward (R) Elevated PT-OP-K Range of Motion Start: 12/09/17 12:01 Freq: Status: Active Protocol: Document 12/09/17 11:15 DCW (Rec: 12/09/17 12:37 DCW [id number]) Shoulder Goniometric Range of Motion Shoulder Measured in Degrees Right Active Testing Position Sitting Flexion 154 Abduction 118 External Rotation at 0 degrees Abduction 30 Left Active Shoulder ROM WFL Yes Shoulder ROM Limitations Shoulder ROM Limitations Pain PT-OP-L Special Tests Start: 12/09/17 12:01 Freq: Status: Active Protocol: Document 12/09/17 11:15 DCW (Rec: 12/09/17 12:37 DCW [id number]) Special Tests Shoulder Special Tests Yergason's Biceps Test Results Positive Speed's Biceps Test Results Positive Neer Impingement Test Results Positive Lift-Off Rotator Cuff Test Results Difficulty lifting Peguero Alfred Impingement Test Results Positive Drop Arm Rotator Cuff Test Results Negative Biceps Load II Test Test Results Significant Pain Belly Press Test Results Mild Anterior pain AC Joint Compression Test Results Negative PT-OP-M Strength Start: 12/09/17 12:01 Freq: Status: Active Protocol: Document 12/09/17 11:15 DCW (Rec: 12/09/17 12:37 DCW [id number]) Shoulder Strength Shoulder Manual Muscle Testing Right Flexion 4- Good- Abduction (C5) 4- Good- External Rotation 4 Good Internal Rotation 4 Good Comments Pt appeared to be limited secondary to pain rather than true muscle weakness PT-OP-Q Treatments Start: 12/09/17 12:01 Freq: Status: Active Protocol: Document 01/05/18 15:26 SA (Rec: 01/05/18 15:35 SA [email or web address]) Cardio Equipment Upper Body Ergometer (UBE) Duration (Minutes) 6 RPM 60 Therapeutic Exercises Supine Exercises 3 Supine Exercise Name Scapular protraction with 0# as pt could not tolerate 1# Side right Resistance 1# Reps/Minutes 20 2 Supine Exercise Name Wand ER Side right 1 Supine Exercise Name Wand flexion Side right Sitting Exercises GH Pulleys Side bilateral Reps/Minutes 2 minutes Standing Exercises scapular retraction Resistance 2# Theraband Reps/Minutes 20 Shoulder Extension Side bilateral Reps/Minutes 20 PT-OP-R Modalities Start: 12/09/17 12:01 Freq: Status: Active Protocol: Document 01/05/18 15:26 SA (Rec: 01/05/18 15:35 [email or web address]) Hot Pack/Cold Pack Treatment Hot Pack Patient Position Supine Treatment Duration (minutes) 10 Patient Tolerance Good PT-OP-T Assessment and Plan Start: 12/09/17 12:01 Freq: Status: Active Protocol: Document 01/05/18 15:26 SA (Rec: 01/05/18 15:35 [email or web address]) Physical Therapy Assessment Assessment Summary Assessment Pt inconsistant with HEP, work station modification and using good mechanics with lifting. Physical Therapy Plan Next Visit Focus/Plan Next Note Type Treatment Note Next Visit Plan Re visit work station set up, shoulder mechanics and proper lifing technique with pateint. Pt continues to demonstrate poor habits.
--- NOTE | 2018-01-08 15:39 | PT.OTN ---
Current Diagnoses Primary osteoarthritis, right shoulder (01/08/18) Unspecified disorder of synovium and tendon, right shoulder (01/08/18) Calcific tendinitis of right shoulder (01/08/18) Physical Therapy Treatment Note PT-OP-A Visit Information Start: 12/09/17 12:01 Freq: Status: Active Protocol: Document 12/29/17 13:22 SA (Rec: 12/30/17 15:08 SA [id number]) Out-Patient Physical Therapy Visit Information Visit Information Visit Type Treatment Note Visit Start Time 12:15 Visit Stop Time 13:12 Visit Number 6 Number of DRY WALL NAILER Visits 2 Evaluation Information Evaluation Date 12/09/17 PT-OP-B Current Condition Start: 12/09/17 12:01 Freq: Status: Active Protocol: Document 12/09/17 11:15 DCW (Rec: 12/09/17 12:37 DCW [id number]) Current Condition History of Current Condition Onset Date one year Current Complaints Shoulder pain, decreased ROM History of Current Condition Pt is a 57 year old male presenting with a one year history of right shoulder pain . Pt notes no obvious trauma which began his pain, but notes he has been diagnosed with severe arthritis in his shoulder. Also admits to a fall onto his right side when tripping on his shoelaces crossing the street in May, which worsened his pain, but reports his pain had been ongoing prior to that incident . Pt notes his pain is generally a 6/10, but increased to an 8/10 with lifting or using his laptop mouse, and causes him to be unable to swing a golf club or do any deep cleaning in his apartment, like scrubbing the tub or tiles. Pt was previously seen by an Orthopedist, and was diagnosed with rotator cuff tendopathy, calcific tendonitis, and GH arthritis. Skilled PT was recommended, with an emphasis on ROM, R/C strengthening, STM , and modalities for pain control and decreased inflammation Treatment Goals Patient/Caregiver Goals Pt would like to return to golf, be able to clean his apartment with no pain, and be able to lift without pain. Current Functional Impairments (Reported) Functional Limitations- ADL's Unable to perform deep- cleaning activities at home Functional Limitations- Recreation/ Unable to swing a golf club Hobbies PT-OP-C Subjective Start: 12/09/17 12:01 Freq: Status: Active Protocol: Document 01/08/18 15:29 SA (Rec: 01/08/18 15:38 SA [id number]) OP-PT Subjective Patient Comments Patient Comments Pt states shoulder is a little better but rates pain 4/10 intermittent. Did purchase a new office chair to improve work station set up. Patient Reported Progress Same OP-PT Pain Assessment Location Right Shoulder Pain Location Details R shoulder Intensity 4 Scale Used Numeric (1 - 10) Description With Movement PT-OP-E Functional Tests Start: 12/09/17 12:37 Freq: Status: Active Protocol: Document 12/09/17 11:15 DCW (Rec: 12/09/17 12:39 DCW [id number]) Functional Tests Apley's Scratch Test Action 1: The subject is instructed to touch the opposite shoulder with his/her hand. This motion checks Glenohumeral adduction, internal rotation , horizontal adduction and scapular protraction Action 2: The subject is instructed to place his/her arm overhead and reach behind the neck to touch his/her upper back. This motion checks Glenohumeral abduction, external rotation and scapular upward rotation and elevation. Action 3: The subject puts his/her hand on the lower back and reaches upward as far as possible. This motion checks glenohumeral adduction, internal rotation and scapular retraction with downward rotation Action 1- Left Posterior opposite Shoulder Action 1- Right Posterior opposite Shoulder Action 2- Left T4 Action 2- Right T1 Action 3- Left T5 Action 3- Right T12 PT-OP-F Manual Assessment Start: 12/09/17 12:01 Freq: Status: Active Protocol: Document 12/09/17 11:15 DCW (Rec: 12/09/17 12:37 DCW [id number]) Manual Assessments Soft Tissue Assessment Soft Tissue Mobility Assessment Biceps Tendon - Tenderness to Palpation 3/4 = Wincing and withdrawal Subacromial Space - Tenderness to Palpation 3/4 = Wincing and withdrawal Infraspinatus - Tenderness to Palpation 2/4 = Pain with Wincing Supraspinatus - Tenderness to Palpation 2/4 = Pain with Wincing PT-OP-J Posture/Palpation/Skin Start: 12/09/17 12:01 Freq: Status: Active Protocol: Document 12/09/17 11:15 DCW (Rec: 12/09/17 12:37 DCW [id number]) Posture Evaluation Position Sitting Evaluation View Anterior Shoulder Posture (R) Forward (R) Elevated PT-OP-K Range of Motion Start: 12/09/17 12:01 Freq: Status: Active Protocol: Document 12/09/17 11:15 DCW (Rec: 12/09/17 12:37 DC [id number]) Shoulder Goniometric Range of Motion Shoulder Measured in Degrees Right Active Testing Position Sitting Flexion 154 Abduction 118 External Rotation at 0 degrees Abduction 30 Left Active Shoulder ROM WFL Yes Shoulder ROM Limitations Shoulder ROM Limitations Pain PT-OP-L Special Tests Start: 12/09/17 12:01 Freq: Status: Active Protocol: Document 12/09/17 11:15 DCW (Rec: 12/09/17 12:37 [facility] [id number]) Special Tests Shoulder Special Tests Saran's Biceps Test Results Positive Speed's Biceps Test Results Positive Neer Impingement Test Results Positive Lift-Off Rotator Cuff Test Results Difficulty lifting Peguero Alfred Impingement Test Results Positive Drop Arm Rotator Cuff Test Results Negative Biceps Load II Test Test Results Significant Pain Belly Press Test Results Mild Anterior pain AC Joint Compression Test Results Negative PT-OP-M Strength Start: 12/09/17 12:01 Freq: Status: Active Protocol: Document 12/09/17 11:15 DCW (Rec: 12/09/17 12:37 DC [id number]) Shoulder Strength Shoulder Manual Muscle Testing Right Flexion 4- Good- Abduction (C5) 4- Good- External Rotation 4 Good Internal Rotation 4 Good Comments Pt appeared to be limited secondary to pain rather than true muscle weakness PT-OP-Q Treatments Start: 12/09/17 12:01 Freq: Status: Active Protocol: Document 01/08/18 15:29 SA (Rec: 01/08/18 15:38 SA [id number]) Cardio Equipment Upper Body Ergometer (UBE) Duration (Minutes) 6 RPM 60 Therapeutic Exercises Supine Exercises 3 Supine Exercise Name Scapular protraction with 0# as pt could not tolerate 1# Side right Resistance 1# Reps/Minutes 20 2 Supine Exercise Name Wand ER Side right 1 Supine Exercise Name Wand flexion Side right Sidelying Exercises Shoulder ER Sidelying Exercise Name shoulder ER with no weight Side right Sitting Exercises GH Pulleys Side bilateral Reps/Minutes 2 minutes Standing Exercises scapular retraction Resistance 2# Theraband Reps/Minutes 20 Shoulder Extension Side bilateral Reps/Minutes 20 Manual Therapy Treatment Soft Tissue Mobilization 1 Body Location UT, Interscap, Infraspinatus Mobilization Type Rolling Trigger Point Release Intensity/Depth Moderate Body Position Supine Comments R shoulder, upper traps, scalenes Joint Mobilizations 1 Joint glenohumeral Direction posterior, inferior Grade II Body Position Hooklying Taping R shoulder Kinesio taping Type of Tape Kinesio Tape PT-OP-R Modalities Start: 12/09/17 12:01 Freq: Status: Active Protocol: Document 01/08/18 15:29 (Rec: 01/08/18 15:38 [id number]) Hot Pack/Cold Pack Treatment Hot Pack Patient Position Supine Treatment Duration (minutes) 10 Patient Tolerance Good PT-OP-T Assessment and Plan Start: 12/09/17 12:01 Freq: Status: Active Protocol: Document 01/08/18 15:29 (Rec: 01/08/18 15:38 [id number]) Physical Therapy Plan Frequency and Duration Frequency of Treatment 2x/Week Duration of Treatment 2 months Plan of Care Start Date 12/09/17 Plan of Care End Date 02/08/18 Next Visit Focus/Plan Next Note Type Treatment Note Next Visit Plan Reviewed body mechanics with lifting today and patient to modify how he does laundry and carries groceries to see if shoulder symptoms improve.
--- NOTE | 2018-01-12 12:10 | PT.OTN ---
Current Diagnoses Primary osteoarthritis, right shoulder (01/12/18) Unspecified disorder of synovium and tendon, right shoulder (01/12/18) Calcific tendinitis of right shoulder (01/12/18) Physical Therapy Treatment Note PT-OP-A Visit Information Start: 12/09/17 12:01 Freq: Status: Active Protocol: Document 01/12/18 12:10 DLM (Rec: 01/12/18 13:56 DLM [id number]) Out-Patient Physical Therapy Visit Information Visit Information Visit Type Treatment Note Visit Start Time 12:10 Visit Stop Time 12:59 Total Visit Minutes 49 Visit Number 10 Number of REPTILE KEEPER Visits 0 Evaluation Information Evaluation Date 12/09/17 PT-OP-B Current Condition Start: 12/09/17 12:01 Freq: Status: Active Protocol: Document 12/09/17 11:15 DCW (Rec: 12/09/17 12:37 DCW [id number]) Current Condition History of Current Condition Onset Date one year Current Complaints Shoulder pain, decreased ROM History of Current Condition Pt is a 57 year old male presenting with a one year history of right shoulder pain . Pt notes no obvious trauma which began his pain, but notes he has been diagnosed with severe arthritis in his shoulder. Also admits to a fall onto his right side when tripping on his shoelaces crossing the street in May, which worsened his pain, but reports his pain had been ongoing prior to that incident . Pt notes his pain is generally a 6/10, but increased to an 8/10 with lifting or using his laptop mouse, and causes him to be unable to swing a golf club or do any deep cleaning in his apartment, like scrubbing the tub or tiles. Pt was previously seen by an Orthopedist, and was diagnosed with rotator cuff tendopathy, calcific tendonitis, and GH arthritis. Skilled PT was recommended, with an emphasis on ROM, R/C strengthening, STM , and modalities for pain control and decreased inflammation Treatment Goals Patient/Caregiver Goals Pt would like to return to golf, be able to clean his apartment with no pain, and be able to lift without pain. Current Functional Impairments (Reported) Functional Limitations- ADL's Unable to perform deep- cleaning activities at home Functional Limitations- Recreation/ Unable to swing a golf club Hobbies PT-OP-C Subjective Start: 12/09/17 12:01 Freq: Status: Active Protocol: Document 01/12/18 12:10 DL (Rec: 01/12/18 13:56 DL [id number]) OP-PT Subjective Patient Comments Patient Comments He has been sore lately with the damp, cold weather. In addition to shoulder pain he is having pain down his right UE. He is concerned about his wrist pain. He has been better able to manage his anxiety lately by taking walks and playing with his friends children. Patient Reported Progress Same OP-PT Pain Assessment Location Right Shoulder Intensity 8 Scale Used Numeric (1 - 10) Description Aching Radiating Frequency Constant Radiating Location down right UE as low as hand Variations/Patterns worse in cold, damp weather Other Pain Aggravating Factors using right UE Pain Alleviating Factors Heat Inactivity Pain Behaviors Pain Behaviors Holding Area PT-OP-E Functional Tests Start: 12/09/17 12:37 Freq: Status: Active Protocol: Document 12/09/17 11:15 DCW (Rec: 12/09/17 12:39 DCW [id number]) Functional Tests Apley's Scratch Test Action 1: The subject is instructed to touch the opposite shoulder with his/her hand. This motion checks Glenohumeral adduction, internal rotation , horizontal adduction and scapular protraction Action 2: The subject is instructed to place his/her arm overhead and reach behind the neck to touch his/her upper back. This motion checks Glenohumeral abduction, external rotation and scapular upward rotation and elevation. Action 3: The subject puts his/her hand on the lower back and reaches upward as far as possible. This motion checks glenohumeral adduction, internal rotation and scapular retraction with downward rotation Action 1- Left Posterior opposite Shoulder Action 1- Right Posterior opposite Shoulder Action 2- Left T4 Action 2- Right T1 Action 3- Left T5 Action 3- Right T12 PT-OP-J Posture/Palpation/Skin Start: 12/09/17 12:01 Freq: Status: Active Protocol: Document 01/12/18 12:10 DLM (Rec: 01/12/18 14:08 [facility] [id number]) Palpation Assessment Location Two Palpation Location right anterior shoulder Palpation Findings Tenderness Palpation Details biceps tendon tender One Palpation Location right upper trap Palpation Findings Soft Tissue Tightness Tenderness Trigger Point PT-OP-K Range of Motion Start: 12/09/17 12:01 Freq: Status: Active Protocol: Document 01/12/18 12:10 DLM (Rec: 01/12/18 14:05 DLM [id number]) Shoulder Goniometric Range of Motion Shoulder Measured in Degrees Right Active Testing Position Sitting Flexion 170 Abduction 120 External Rotation at 0 degrees Abduction 30 Shoulder ROM Limitations Shoulder ROM Limitations Pain PT-OP-L Special Tests Start: 12/09/17 12:01 Freq: Status: Active Protocol: Document 12/09/17 11:15 DCW (Rec: 12/09/17 12:37 DCW [id number]) Special Tests Shoulder Special Tests Yergason's Biceps Test Results Positive Speed's Biceps Test Results Positive Neer Impingement Test Results Positive Lift-Off Rotator Cuff Test Results Difficulty lifting Peguero Alfred Impingement Test Results Positive Drop Arm Rotator Cuff Test Results Negative Biceps Load II Test Test Results Significant Pain Belly Press Test Results Mild Anterior pain AC Joint Compression Test Results Negative PT-OP-M Strength Start: 12/09/17 12:01 Freq: Status: Active Protocol: Document 01/12/18 12:10 DLM (Rec: 01/12/18 14:06 DLM [id number]) Shoulder Strength Shoulder Manual Muscle Testing Right Flexion 4 Good Abduction (C5) 4 Good External Rotation 4 Good Internal Rotation 4 Good Comments he continues to have pain that limits his strength PT-OP-Q Treatments Start: 12/09/17 12:01 Freq: Status: Active Protocol: Document 01/12/18 12:10 DLM (Rec: 01/12/18 13:56 DLM [id number]) Cardio Equipment Upper Body Ergometer (UBE) Duration (Minutes) 6 RPM 60 Other 3 min forward and 3 min backwards Therapeutic Exercises Sidelying Exercises Shoulder ER Sidelying Exercise Name shoulder ER with no weight Side right Reps/Minutes 20 Comments towel roll under elbow Sitting Exercises GH Pulleys Side bilateral Resistance AAROM Reps/Minutes 2 minutes Comments end range stretch, able to go to 170 degrees today Standing Exercises scapular retraction Side bilateral Resistance L2 exercise band Reps/Minutes 20 reps Shoulder Extension Side bilateral Resistance L2 exercise band Reps/Minutes 20 reps Manual Therapy Treatment Soft Tissue Mobilization 1 Body Location UT, Interscap, Infraspinatus Mobilization Type Myofascial Release Rolling Strumming Sustained Pressure Trigger Point Release Intensity/Depth Moderate Body Position Supine Comments R shoulder Joint Mobilizations 1 Joint glenohumeral, right Direction posterior, inferior Grade II Body Position Supine PT-OP-R Modalities Start: 12/09/17 12:01 Freq: Status: Active Protocol: Document 01/12/18 12:10 DLM (Rec: 01/12/18 13:56 DLM [id number]) Ultrasound Therapy Treatment Right Anterior Shoulder Treatment Duration (minutes) 8 Patient Position Sitting Coupling Medium Ultrasound Gel Applicator Size (cm2) 10 Mode Setting Continuous Duty Cycle 100% Intensity Setting (w/cm2) 1.2 PT-OP-T Assessment and Plan Start: 12/09/17 12:01 Freq: Status: Active Protocol: Document 01/12/18 12:10 DLM (Rec: 01/12/18 13:56 DLM [id number]) Physical Therapy Assessment Goals Five Impairment Appley Scratch Test Hogshead Liner Goal (LTG) Right shoulder = Left Shoulder LTG Duration 02/08/18 Four Impairment Right shoulder weakness Short Term Goal (STG) R shoulder MMT to grossly 4+/5 STG Duration 01/08/18 Three Impairment Limited ROM Short Term Goal (STG) Pt right shoulder ROM to WNL STG Duration 01/08/18 Penitentiary Goal (LTG) Pt right shoulder ROM to pain- free WNL LTG Duration 02/08/18 Two Impairment Activity Participation Short Term Goal (STG) Pt to play 9 holes of golf with no increased symptoms STG Duration 01/08/18 Hogshead Liner Goal (LTG) Pt to scrub bathroom with no increased symptoms LTG Duration 02/08/18 One Impairment Pt does not have an independent home exercise program Short Term Goal (STG) Pt to be independent and consistent with an appropriate HEP STG Duration 01/08/18 Progress Towards Goals Progress Towards Goals Slow Progress due to Activity Tolerance Progress Comments He made progress towards his goals but did not meet them. He has an independent HEP but has been inconsistent performing them. He uses heat at home consistently to mange his pain. Assessment Summary Assessment This is Ash's last visit due to limited insurance authorization. He was unable to complete the planned two months of treatment due to insurance only authorizing 10 visits. His pain continues to vary with shoulder use and weather changes. He has made progress with his ROM and strength but not enough to meet the goals established at [facility]. He has been provided a home exericise program. Physical Therapy Plan Frequency and Duration Frequency of Treatment 2x/Week Duration of Treatment 2 months Plan of Care Start Date 12/09/17 Plan of Care End Date 02/08/18 Discharge Physical Therapy Discharge Comments No more insurance authorization for treatment. He completed 12/23 authorized visits.
--- NOTE | 2018-01-12 14:16 | PT.OPDS ---
Current Diagnoses Primary osteoarthritis, right shoulder (01/12/18) Unspecified disorder of synovium and tendon, right shoulder (01/12/18) Calcific tendinitis of right shoulder (01/12/18) Provider Visit Care Team Role Provider Type Haydee Iqbal DO Attending Provider Physician Family Provider Primary Care Provider Specialty: Family Practice Address: [address] [place] [address], [facility] Email: [email or web address] Visit Number Visit Number 10 Discharge Summary PT-OP-B Current Condition Start: 12/09/17 12:01 Freq: Status: Active Protocol: Document 12/09/17 11:15 DCW (Rec: 12/09/17 12:37 DCW [id number]) Current Condition History of Current Condition Onset Date one year Current Complaints Shoulder pain, decreased ROM History of Current Condition Pt is a 57 year old male presenting with a one year history of right shoulder pain . Pt notes no obvious trauma which began his pain, but notes he has been diagnosed with severe arthritis in his shoulder. Also admits to a fall onto his right side when tripping on his shoelaces crossing the street in May, which worsened his pain, but reports his pain had been ongoing prior to that incident . Pt notes his pain is generally a 6/10, but increased to an 8/10 with lifting or using his laptop mouse, and causes him to be unable to swing a golf club or do any deep cleaning in his apartment, like scrubbing the tub or tiles. Pt was previously seen by an Orthopedist, and was diagnosed with rotator cuff tendopathy, calcific tendonitis, and GH arthritis. Skilled PT was recommended, with an emphasis on ROM, R/C strengthening, STM , and modalities for pain control and decreased inflammation Treatment Goals Patient/Caregiver Goals Pt would like to return to golf, be able to clean his apartment with no pain, and be able to lift without pain. Current Functional Impairments (Reported) Functional Limitations- ADL's Unable to perform deep- cleaning activities at home Functional Limitations- Recreation/ Unable to swing a golf club Hobbies PT-OP-C Subjective Start: 12/09/17 12:01 Freq: Status: Active Protocol: Document 01/12/18 12:10 DLM (Rec: 01/12/18 13:56 [email or web address] [id number]) OP-PT Subjective Patient Comments Patient Comments He has been sore lately with the damp, cold weather. In addition to shoulder pain he is having pain down his right UE. He is concerned about his wrist pain. He has been better able to manage his anxiety lately by taking walks and playing with his friends children. Patient Reported Progress Same OP-PT Pain Assessment Location Right Shoulder Intensity 8 Scale Used Numeric (1 - 10) Description Aching Radiating Frequency Constant Radiating Location down right UE as low as hand Variations/Patterns worse in cold, damp weather Other Pain Aggravating Factors using right UE Pain Alleviating Factors Heat Inactivity Pain Behaviors Pain Behaviors Holding Area PT-OP-E Functional Tests Start: 12/09/17 12:37 Freq: Status: Active Protocol: Document 12/09/17 11:15 DCW (Rec: 12/09/17 12:39 DCW [id number]) Functional Tests Apley's Scratch Test Action 1: The subject is instructed to touch the opposite shoulder with his/her hand. This motion checks Glenohumeral adduction, internal rotation , horizontal adduction and scapular protraction Action 2: The subject is instructed to place his/her arm overhead and reach behind the neck to touch his/her upper back. This motion checks Glenohumeral abduction, external rotation and scapular upward rotation and elevation. Action 3: The subject puts his/her hand on the lower back and reaches upward as far as possible. This motion checks glenohumeral adduction, internal rotation and scapular retraction with downward rotation Action 1- Left Posterior opposite Shoulder Action 1- Right Posterior opposite Shoulder Action 2- Left T4 Action 2- Right T1 Action 3- Left T5 Action 3- Right T12 PT-OP-F Manual Assessment Start: 12/09/17 12:01 Freq: Status: Active Protocol: Document 12/09/17 11:15 DCW (Rec: 12/09/17 12:37 DCW [id number]) Manual Assessments Soft Tissue Assessment Soft Tissue Mobility Assessment Biceps Tendon - Tenderness to Palpation 3/4 = Wincing and withdrawal Subacromial Space - Tenderness to Palpation 3/4 = Wincing and withdrawal Infraspinatus - Tenderness to Palpation 2/4 = Pain with Wincing Supraspinatus - Tenderness to Palpation 2/4 = Pain with Wincing PT-OP-J Posture/Palpation/Skin Start: 12/09/17 12:01 Freq: Status: Active Protocol: Document 01/12/18 12:10 DLM (Rec: 01/12/18 14:08 DLM [id number]) Palpation Assessment Location Two Palpation Location right anterior shoulder Palpation Findings Tenderness Palpation Details biceps tendon tender One Palpation Location right upper trap Palpation Findings Soft Tissue Tightness Tenderness Trigger Point PT-OP-K Range of Motion Start: 12/09/17 12:01 Freq: Status: Active Protocol: Document 01/12/18 12:10 DLM (Rec: 01/12/18 14:05 DLM [id number]) Shoulder Goniometric Range of Motion Shoulder Measured in Degrees Right Active Testing Position Sitting Flexion 170 Abduction 120 External Rotation at 0 degrees Abduction 30 Shoulder ROM Limitations Shoulder ROM Limitations Pain PT-OP-L Special Tests Start: 12/09/17 12:01 Freq: Status: Active Protocol: Document 12/09/17 11:15 DCW (Rec: 12/09/17 12:37 DCW [id number]) Special Tests Shoulder Special Tests Yergason's Biceps Test Results Positive Speed's Biceps Test Results Positive Neer Impingement Test Results Positive Lift-Off Rotator Cuff Test Results Difficulty lifting Peguero Alfred Impingement Test Results Positive Drop Arm Rotator Cuff Test Results Negative Biceps Load II Test Test Results Significant Pain Belly Press Test Results Mild Anterior pain AC Joint Compression Test Results Negative PT-OP-M Strength Start: 12/09/17 12:01 Freq: Status: Active Protocol: Document 01/12/18 12:10 DLM (Rec: 01/12/18 14:06 DLM [id number]) Shoulder Strength Shoulder Manual Muscle Testing Right Flexion 4 Good Abduction (C5) 4 Good External Rotation 4 Good Internal Rotation 4 Good Comments he continues to have pain that limits his strength PT-OP-T Assessment and Plan Start: 12/09/17 12:01 Freq: Status: Active Protocol: Document 01/12/18 12:10 DLM (Rec: 01/12/18 13:56 DLM [id number]) Physical Therapy Assessment Goals Five Impairment Appley Scratch Test Fdc Goal (LTG) Right shoulder = Left Shoulder LTG Duration 02/08/18 Four Impairment Right shoulder weakness Short Term Goal (STG) R shoulder MMT to grossly 4+/5 STG Duration 01/08/18 Three Impairment Limited ROM Short Term Goal (STG) Pt right shoulder ROM to WNL STG Duration 01/08/18 Fdc Goal (LTG) Pt right shoulder ROM to pain- free WNL LTG Duration 02/08/18 Two Impairment Activity Participation Short Term Goal (STG) Pt to play 9 holes of golf with no increased symptoms STG Duration 01/08/18 Home Care Scheduler Goal (LTG) Pt to scrub bathroom with no increased symptoms LTG Duration 02/08/18 One Impairment Pt does not have an independent home exercise program Short Term Goal (STG) Pt to be independent and consistent with an appropriate HEP STG Duration 01/08/18 Progress Towards Goals Progress Towards Goals Slow Progress due to Activity Tolerance Progress Comments He made progress towards his goals but did not meet them. He has an independent HEP but has been inconsistent performing them. He uses heat at home consistently to mange his pain. Assessment Summary Assessment This is Ash's last visit due to limited insurance authorization. He was unable to complete the planned two months of treatment due to insurance only authorizing 10 visits. His pain continues to vary with shoulder use and weather changes. He has made progress with his ROM and strength but not enough to meet the goals established at [facility]. He has been provided a home exericise program. Physical Therapy Plan Frequency and Duration Frequency of Treatment 2x/Week Duration of Treatment 2 months Plan of Care Start Date 12/09/17 Plan of Care End Date 02/08/18 Discharge Physical Therapy Discharge Comments No more insurance authorization for treatment. He completed 12/23 authorized visits.
== END 2018-02-12 13:24 ==
LOC: PHYS 12:00
PROVIDERS: Family Provider Family Medicine; PCP Family Medicine; Visit Provider Family Medicine
DX: M67.911 Unspecified disorder of synovium and tendon, right shoulder (principal); M75.31 Calcific tendinitis of right shoulder; M19.011 Primary osteoarthritis, right shoulder
CPT/HCPCS: 97010; 97035; 97110; 97140; 97162

== ENCOUNTER 2018-02-09 12:23 | Outpatient (RCR) | payer OTHER, MEDICAID, SELFPAY ==
--- OUTSIDE RECORDS SUMMARY | 2018-03-17 16:13 | XMS_ITS | Referral Summary ---
:1960 Author Organization [address] [address] Care Team Providers Name Role Phone Haydee Iqbal Primary Care Provider Unavailable Reason for Referral Hospital - Outpatient (Routine) Status Reason Specialty Diagnoses / Referred By Referred To Procedures Contact Contact Authorized Diagnoses S/P CABG (coronary artery bypass graft) Gelacio Bright, [facility] [address] [place] [address] [address] [id number] [place], [place] Phone: [phone] Reason for Visit Reason Comments Cardiac Rehabilitation Encounter Details Date Type Department Care Team Description 12/09/2017 Telephone [facility] Gelacio Bright, Cardiac Rehabilitation Cardiology [address], [address] [place] [address] [address] [place] [address] [id number] Allergies Active Allergy Reactions Severity Noted Date Comments Naproxen Sodium 11/03/2017 Aspirin Other reaction(s): GI Upset Collagen Itching, Swelling Medium 12/14/2016 Other reaction(s): Sensitivity Egg 03/30/2012 Other reaction(s): Other (See Comments) CE Conversion GI upset Other reaction(s): GI Upset CE Conversion Epinephrine 11/07/2016 Other reaction(s): Other (Comment) Heart problems Iodinated Contrast- 11/07/2016 Other reaction(s): Oral And Iv Dye Swelling Lactose 08/31/2014 GI upset Other reaction(s): Other (See Comments) GI upset Other reaction(s): Allergy Undetermined Stomach up sad Latex Itching Montelukast Other reaction(s): Other (See Comments) INTENSE DEPRESSION/OCC S.I. Nsaids (Non-Steroidal 11/03/2017 Anti-Inflammatory Drug) Paroxetine Low 01/07/2017 woozy; not myself Peanut 11/07/2016 Other reaction(s): Swelling Polyethylene Glycol Itching 02/28/2016 Prednisone 11/07/2016 ONLY HIGH DOSE Heart problems Procaine 05/30/2015 Proton Pump Inhibitors 05/30/2015 Other reaction(s): Other (See Comments) Upset stomach Ranitidine Hcl Itching 05/30/2015 Sertraline Low 01/07/2017 woozy; not myself [id number] Other (see comments) Medium 11/03/2017 Muscle aches Reductase Inhibitors as of this encounter Medications Prescription Sig. Disp. Refills Start Date End Date Status acetaminophen Take 500 mg by mouth Active (TYLENOL) 500 mg every 30 minutes as tablet needed. albuterol HFA Inhale 180 mcg. Active (PROVENTIL HFA;VENTOLIN HFA) 90 mcg/actuation inhaler budesonide Inhale 180 mcg. Active (PULMICORT) 180 mcg/actuation inhaler calcium carbonate Take 4 tablets by 05/24/2012 Active (TUMS) 200 mg mouth daily. calcium (500 mg) chewable tablet carvedilol (COREG) Take 12.5 mg by Active 12.5 mg tablet mouth see administration instructions. 6.25 mg in AM and 12.5 mg in PM cholecalciferol, Take 2,000 Units by Active vitamin D3, 1,000 mouth. unit capsule escitalopram Take 10 mg by mouth Active (LEXAPRO) 10 mg daily. tablet Lactobacillus Take 1 capsule by Active rhamnosus GG 15 mouth. billion cell capsule, sprinkle methocarbamol Take 750 mg by Active (ROBAXIN) 750 mg mouth. tablet nitroglycerin Place 0.4 mg under Active (NITROSTAT) 0.4 mg the tongue every 5 SL tablet minutes. simethicone 80mg tablets 4 times 07/31/2017 Active (NM-ACID GAS per day RELIEF) 80 mg chewable tablet tamsulosin (FLOMAX) Take 0.4 mg by Active 0.4 mg mouth. capsule,extended release 24hr traMADol (ULTRAM) Take 50 mg by mouth 01/25/2013 Active 50 mg tablet every 8 hours. UBIQUINOL, BULK, Take 50 mg by mouth. Active MISC fexofenadine Take 60 mg by mouth Active (DUGLAS ALLERGY) daily. 60 mg tablet aspirin 81 mg EC Take 1 tablet (81 mg 30 tablet 11 10/15/2017 10/15/2018 Active tablet total) by mouth daily. cyanocobalamin-meth Place under the Active ylcobalamin 600-600 tongue mcg tablet, sublingual clonazePAM Take 1 mg by mouth 2 Active (KlonoPIN) 1 mg (two) times a day tablet as of this encounter Active Problems Problem Noted Date Tendinopathy of right rotator cuff 11/30/2017 Calcific tendinitis of right shoulder 11/30/2017 Glenohumeral arthritis, right 11/30/2017 Chronic back pain 11/03/2017 Costochondritis 11/03/2017 History of NM (myocardial infarction) 11/03/2017 Overview: Overview: x3 1 in 2004 and 2 in 2014 History of shingles 11/03/2017 Overview: Overview: 1977 Mixed hyperlipidemia 11/03/2017 Last Assessment & Plan: Lipid abnormalities are improving with lifestyle modifications. Nutritional counseling was provided. and Lipid-lowering therapy was not prescribed due to previous adverse reaction. Lipids will be reassessed in 6 months. Will Consider Repatha or Praleunt. Essential hypertension 10/15/2017 Last Assessment & Plan: Hypertension is improving with treatment. Continue current treatment regimen. Dietary sodium restriction. Regular aerobic exercise. Continue current medications. Ambulatory blood pressure monitoring. Blood pressure will be reassessed at the next regular appointment. Asthma 10/15/2017 Coronary artery disease involving tetlin coronary artery of tetlin heart 09/29 without angina pectoris Last Assessment & Plan: Coronary artery disease is improving with lifestyle modifications. Continue current treatment regimen. Dietary sodium restriction. Regular aerobic exercise. Continue current medications. Will Consider Repatha or Praleunt. Cardiac status will be reassessed in 6 months. Microhematuria 02/02/2017 Degenerative cervical disc 07/08/2016 Plantar fasciitis of right foot 03/27/2016 Cataract, right eye 02/14/2016 TMJ (sprain of temporomandibular joint), sequela 11/13/2015 Allergic dermatitis 03/21/2015 GERD (gastroesophageal reflux disease) 12/06/2014 PTSD (post-traumatic stress disorder) 11/15/2014 Chronic pain of both shoulders 10/31/2014 Erectile dysfunction 10/30/2014 Cervicalgia 10/13/2014 Epistaxis 10/13/2014 Overview: Overview: New, Stable on 05/17/14 Hemorrhage of rectum and anus 10/13/2014 Overview: Overview: New, stable on 05/24/14 Hypogonadism in male 10/13/2014 Insomnia 10/13/2014 Pes anserinus tendinitis or bursitis 10/13/2014 Primary localized osteoarthrosis, hand 10/11/2012 Allergic rhinitis 05/04/2012 Hydrocele 03/30/2012 Scoliosis (and kyphoscoliosis), idiopathic 03/30/2012 Resolved Problems Problem Noted Date Resolved Date Anxiety and depression 10/15/2017 11/03/2017 Immunizations Name Dates Previously Given Next Due Pneumococcal Conjugate,unspecified 03/16/2008 TD Preservative Free (Generic) 03/16/2011 Tdap (Boostrix,Adacel) 11/26/2010 VFC Tdap (Boostrix,Adacel) 11/26/2010 as of this encounter Social History Tobacco Use Types Packs/Day Years Used Date Never Smoker Smokeless Tobacco: Never Used Alcohol Use Drinks/Week oz/Week Comments No Sex Assigned at Date Recorded Not on file as of this encounter Plan of Treatment Upcoming Encounters Date Type Specialty Care Team Description 12/31/2017 Office Visit Gastroenterology Declan Bird PA [address] [place] [phone] 01/25/2018 Procedure visit Urology Kristin Peñaloza MD [address] [place], [place] [phone] 02/02/2018 Office Visit Orthopaedic Surgery Girish Weir, DO [address] [place], [place] [phone] Scheduled Referrals Name Priority Associated Diagnoses Order Schedule *SRC MV Referral to Cardiac Routine S/P CABG (coronary artery Ordered: 12/12 Rehabilitation bypass graft) as of this encounter Visit Diagnoses Diagnosis S/P CABG (coronary artery bypass graft) - Primary Postsurgical aortocoronary bypass status Insurance Payer Benefit Plan / Group Subscriber ID Type Phone Address [employer] [place] xxxxxxxxx MANAGED BLIND/DISABLED as of this encounter
== END 2018-02-10 09:50 ==
LOC: CAR 12:23
PROVIDERS: PCP Student in an Organized Health Care Education/Training Program; Visit Provider Internal Medicine Cardiovascular Disease
DX: Z95.1 Presence of aortocoronary bypass graft (principal); Z95.5 Presence of coronary angioplasty implant and graft
CPT/HCPCS: 93798

== ENCOUNTER → 2018-02-24 08:07 | Outpatient (CLI) | payer OTHER, MEDICAID, SELFPAY ==
[2018-02-24 09:41] LABS: Cholesterol 132 mg/dL (140-199); HDL Cholesterol 33 mg/dL (40-60); LDL Cholesterol Calculated 62 mg/dL (<100); Triglycerides 184 mg/dL (35-150)
[2018-02-24 09:42] LABS: C-Reactive Protein Quant < 0.5 mg/dL (<1.0)
== END ==
PROVIDERS: Family Provider Student in an Organized Health Care Education/Training Program; PCP Student in an Organized Health Care Education/Training Program; Visit Provider Internal Medicine Cardiovascular Disease
DX: I25.10 Atherosclerotic heart disease of native coronary artery without angina pectoris (principal); K59.00 Constipation, unspecified
CPT/HCPCS: 36415; 80061; 86140

== ENCOUNTER → 2018-04-13 18:13 | Outpatient (REF) | payer OTHER, MEDICAID, SELFPAY ==
[2018-04-13 19:14] LABS: Semen Sperm Prescence Post-Vas Absent (ABSENT)
== END ==
LOC: LAB 18:13
PROVIDERS: Family Provider Student in an Organized Health Care Education/Training Program; PCP Student in an Organized Health Care Education/Training Program; Visit Provider Urology
DX: Z30.09 Encounter for other general counseling and advice on contraception (principal)
CPT/HCPCS: 89321

== ENCOUNTER 2018-06-06 17:42 | Emergency (ER) | payer OTHER, MEDICAID, SELFPAY ==
[2018-06-06 17:57] VITALS: BP 123/78; PULSE 72; RESP 20; TEMP 36.6; O2SAT 96
--- NOTE | 2018-06-06 18:01 | DI.RAD.S_ITS ---
PROCEDURE: XR FINGER RT MIN 2V INDICATIONS: shut finger in car door TECHNIQUE: AP hand, 2 views of the second finger(s) acquired. COMPARISON: None. FINDINGS: Bones: Diffuse demineralization.. Severe osteoarthritic change with complete joint space loss and gullwing deformity at the second distal interphalangeal joint obscures good visualization around the joint. Given this there is no displaced fracture plane. Severe arthritic change at the third and fifth distal interphalangeal joints as well. Mild subluxation is present. No suspicious bony lesions. Soft tissues: No suspicious soft tissue calcifications. IMPRESSION: Given pre-existing severe osteoarthritic change, no fracture of the second digit. Dictated by: Linda Mackenzie M.D. on 06/06/2018 at 19:04 Approved by: Linda Mackenzie M.D. on 06/06/2018 at 19:07
--- NOTE | 2018-06-06 19:42 | ED_ITS ---
HPI - General Adult General Chief complaint: Extremity Injury, Upper Stated complaint: index finger right hand injury,throbbing Time Seen by Provider: 06/06/18 19:41 Source: patient Mode of arrival: ambulatory Limitations: no limitations History of Present Illness HPI narrative: 58-year-old male here for evaluation of tenderness and swelling to the tip of his right index finger. He states that a couple days ago he jammed it on the car door. He states that it feels like there is a cut under his fingernail. Has not tried anything for symptoms prior to arrival. Related Data Home Medications Medication Instructions Recorded Confirmed Lactobacillus acidophilus capsule 1 cap PO DAILY cap 08/28/17 02/18/18 Ubiquinol 50 mg PO DAILY 08/28/17 02/18/18 nitroglycerin 0.4 mg sublingual 0.4 mg SL Q5-15M PRN 08/28/17 02/18/18 tablet aspirin 81 mg PO DAILY 10/07/17 02/18/18 multivitamin with minerals 1 tab PO DAILY 10/07/17 02/18/18 calcium citrate 250 mg tablet 250 mg PO BID tab 11/18/17 02/18/18 cholecalciferol (vitamin D3) 1,000 1,000 unit PO DAILY cap 11/18/17 02/18/18 unit capsule magnesium 200 mg (as magnesium 600 mg PO BEDTIME tab 11/18/17 02/18/18 oxide) tablet Previous Rx's Medication Instructions Recorded fexofenadine 180 mg tablet 180 mg PO DAILY #30 tab 09/21/17 budesonide 180 mcg/actuation 1 inhalation INHALATION BID #1 each 11/04/17 breath activated powder inhaler clonazepam 0.5 mg tablet 0.5 mg PO BID #45 tab 02/02/18 tramadol 50 mg tablet 50 mg PO Q6H #120 tab 02/09/18 escitalopram 10 mg tablet 15 mg PO DAILY #45 tab 02/16/18 lidocaine 5 % topical ointment 1 applictn TOP BID-QID PRN #30 gram 02/22/18 carvedilol 12.5 mg tablet 12.5 mg PO BID #45 tab 03/19/18 methocarbamol 500 mg tablet 500 mg PO .hs PRN #30 tab 04/09/18 tamsulosin 0.4 mg capsule 0.4 mg PO DAILY #30 cap 04/28/18 albuterol sulfate HFA 90 1 puff INHALATION Q4H PRN #6.7 gram 05/06/18 mcg/actuation aerosol inhaler acetaminophen 500 mg capsule 500 mg PO QID PRN #120 cap 05/10/18 trazodone 50 mg tablet 100 mg PO BEDTIME #60 tab 05/12/18 simethicone 80 mg chewable tablet 160 mg PO TID PRN #180 tab 05/31/18 Allergies Allergy/AdvReac Type Severity Reaction Status Date / Time iodine Allergy Intermediate itching, Verified 02/18/18 11:13 swelling latex Allergy Intermediate rash, Verified 02/18/18 11:13 itching procaine [From Novocain] Allergy Intermediate increased Verified 02/18/18 11:13 heart rate atorvastatin AdvReac Intermediate Verified 02/18/18 11:13 diclofenac [From Voltaren] AdvReac Intermediate Nausea Verified 02/18/18 11:13 gabapentin AdvReac Intermediate Confusion Verified 02/18/18 11:13 lactase [From Dairy Aid] AdvReac Intermediate upset Verified 02/18/18 11:13 stomach montelukast [From Singulair] AdvReac Intermediate causes Verified 02/18/18 11:13 depression to worsen prednisone AdvReac Intermediate makes Verified 02/18/18 11:13 patient feel wired, heart racing pregabalin [From Lyrica] AdvReac Intermediate Nausea Verified 02/18/18 11:13 Proton Pump Inhibitors AdvReac Intermediate upset Verified 02/18/18 11:13 stomach NSAIDS (Non-Steroidal AdvReac Mild GI upset Verified 02/18/18 11:13 Anti-Inflamma peanuts Allergy Severe swelling Uncoded 02/18/18 11:13 of tongue and throat Review of Systems Constitutional Denies fever(s) Musculoskeletal Denies tingling Comments: Tenderness the tip of the right index finger Integumentary/Breasts Comments: Bruising the tip of her right index finger Neurologic Denies sensory deficit and Denies tingling Hematologic/Lymphatic Denies easy bleeding and Denies easy bruising [facility] Medical History Anxiety (Chronic 1959) Asthma (Chronic 1977) Cataracts, bilateral (Chronic 2015) Chronic back pain (Chronic 1994) Constipation (Chronic Unknown) Coronary artery disease (Chronic 2004) Depression (Chronic 1959) Fibromyalgia (Chronic 1992) Frequent urination (Chronic 1999) Low testosterone (Chronic 2015) PTSD (post-traumatic stress disorder) (Chronic 1999) Chickenpox (Resolved Unknown) Colon polyps (Resolved 2017) Foot pain (Resolved 2016) Measles (Resolved Unknown) Myocardial infarction (Resolved 2004) Shoulder pain (Resolved 2017) Surgical History History of throat surgery (Resolved 2010) History of vasectomy (Resolved) Family History Father No problems noted. Mother Hyperlipidemia Heart disease Stroke Brother Cancer Mental health problem Brother Alcohol abuse Grandfather No problems noted. Grandmother No problems noted. Grandfather Stroke Grandmother No problems noted. Social History Smoking Status: Never smoker alcohol intake: never Family History Father No problems noted. Mother Hyperlipidemia Heart disease Stroke Brother Cancer Mental health problem Brother Alcohol abuse Grandfather No problems noted. Grandmother No problems noted. Grandfather Stroke Grandmother No problems noted. Social History Smoking Status: Never smoker alcohol intake: never Exam Initial Vital Signs Initial Vital Signs: Vital Signs Temperature 97.9 F 06/06/18 17:57 Pulse Rate 72 06/06/18 17:57 Respiratory Rate 20 06/06/18 17:57 Blood Pressure 123/78 06/06/18 17:57 Pulse Oximetry 96 06/06/18 17:57 Const General: cooperative, healthy appearing, comfortable, well developed, well groomed and No acute distress Orientation: alert and awake Cardio Pulses: radial pulses present on the right Skin Other: Minimal of any bruising to the pad of the right index finger Neuro Sensory Exam: no sensory deficits noted Extrem Other: Patient with tenderness to the tip of the right index finger. The nail is intact. It does appear that on the radial aspect the nail may have from the underlying nail bed. There is no foreign body. No cuts noted. Psych Appearance: grossly normal and well kempt Course Orders Ordered: ED Orders 06/06/18 18:01 XR finger RT min 2V Stat Vital Signs - 8 hr 06/06/18 17:57 Temperature 97.9 F Pulse Rate 72 Respiratory Rate 20 Blood Pressure 123/78 Pulse Oximetry 96 Medical Decision Making Imaging Data An x-ray: Radiologist's impression: [address] [address] XRay Report Signed Patient: Ash Keen IIIMR#: [id number] : 1960Acct:[id number] Age/Sex: 58 / MDate of Service: 06/06/18 Loc: ED Accession Number: [id number] Procedure: XR finger RT min 2V Ordering Provider: Jazz Marsh D.O. PROCEDURE: XR FINGER RT MIN 2V INDICATIONS: shut finger in car door TECHNIQUE: AP hand, 2 views of the second finger(s) acquired. COMPARISON: None. FINDINGS: Bones: Diffuse demineralization.. Severe osteoarthritic change with complete joint space loss and gullwing deformity at the second distal interphalangeal joint obscures good visualization around the joint. Given this there is no displaced fracture plane. Severe arthritic change at the third and fifth distal interphalangeal joints as well. Mild subluxation is present. No suspicious bony lesions. Soft tissues: No suspicious soft tissue calcifications. IMPRESSION: Given pre-existing severe osteoarthritic change, no fracture of the second digit. Dictated by: Linda Mackenzie M.D. on 06/06/2018 at 19:04 Approved by: Linda Mackenzie M.D. on 06/06/2018 at 19:07 [facility] Narrative Medical decision making narrative: Neurovascular intact. No fractures. Does appear that he the nail from the nail underlying nail bed of the index finger. There are no fractures. No foreign bodies. No indication for antibiotics. Will hold on further workup for now. Patient given return precautions. He expressed understanding and agreement with plan. Discharge Plan Departure Patient Disposition: Home Clinical Impression: Finger pain, right Discharge Date/Time: 06/06/18 20:12 Interventions: ED Discharge Assessment Last Done: 06/06/18 20:12 Activity Restrictions/Additional Instructions: There are no signs of infection on your exam today and no fractures on the x- ray. Contact your primary doctor for a follow-up. Return to the emergency depa rtment for any new or worsening symptoms Prescriptions: No Action calcium citrate 250 mg calcium tablet 250 mg PO BID RF: 0 nitroglycerin [Nitrostat] 0.4 mg tablet, sublingual 0.4 mg SL Q5-15M PRN (Reason: Chest Pain) RF: 0 Lactobacillus acidophilus capsule 1 cap PO DAILY RF: 0 Ubiquinol capsule 50 mg PO DAILY RF: 0 fexofenadine [Sharon Allergy] 180 mg tablet 180 mg PO DAILY Qty: 30 RF: 0 budesonide [Pulmicort Flexhaler] 180 mcg/actuation aerosol powdr breath activated 1 inhalation INHALATION BID Qty: 1 RF: 5 tramadol 50 mg tablet 50 mg PO Q6H Qty: 120 RF: 5 escitalopram oxalate [Lexapro] 10 mg tablet 15 mg PO DAILY Qty: 45 RF: 5 lidocaine 5 % ointment 1 applictn TOP BID-QID PRN (Reason: pain) Qty: 30 RF: 0 carvedilol 12.5 mg tablet 12.5 mg PO BID Qty: 45 RF: 5 methocarbamol [Robaxin] 500 mg tablet 500 mg PO .hs PRN (Reason: as needed) Qty: 30 RF: 5 tamsulosin 0.4 mg capsule 0.4 mg PO DAILY Qty: 30 RF: 5 Ventolin HFA 90 mcg/actuation HFA aerosol inhaler 1 puff INHALATION Q4H PRN (Reason: Wheezing) Qty: 6.7 RF: 11 acetaminophen [Mapap (acetaminophen)] 500 mg capsule 500 mg PO QID PRN (Reason: pain) Qty: 120 RF: 1 trazodone 50 mg tablet 100 mg PO BEDTIME Qty: 60 RF: 5 simethicone 80 mg tablet,chewable 160 mg PO TID PRN (Reason: flatulence) Qty: 180 RF: 1 clonazepam 0.5 mg tablet 0.5 mg PO BID Qty: 45 RF: 5 aspirin 81 mg Tablet,Delayed Release (Dr/Ec) 81 mg PO DAILY RF: 0 multivitamin with minerals Tablet 1 tab PO DAILY RF: 0 cholecalciferol (vitamin D3) [Vitamin D3] 1,000 unit capsule 1,000 unit PO DAILY RF: 0 magnesium oxide 200 mg magnesium tablet 600 mg PO BEDTIME RF: 0 Referrals: Juan Hand MD [Primary Care Provider] -
== END 2018-06-06 20:12 | disposition home or self-care (01) ==
PROVIDERS: Emergency Provider Emergency Medicine; Family Provider Student in an Organized Health Care Education/Training Program; PCP Student in an Organized Health Care Education/Training Program
DX: M79.644 Pain in right finger(s) (principal)
CPT/HCPCS: 73140; 99282; 99283

== ENCOUNTER → 2018-07-02 09:52 | Outpatient (CLI) | payer OTHER, MEDICAID, SELFPAY ==
--- NOTE | 2018-07-02 09:56 | DI.RAD.S_ITS ---
PROCEDURE: XR ABDOMEN 1V INDICATIONS: left upper quadrant and epigastric pain TECHNIQUE: One view of the abdomen acquired. COMPARISON: None. FINDINGS: Surgical changes and devices: None. Bowel: Bowel gas pattern is normal except for moderate colonic obstipation, best seen on the right. Soft tissues: No suspicious abdominal calcifications. Visualized solid organ contours appear normal in size. Bones: No suspicious bony lesions. IMPRESSION: Asymmetric right-sided predominant colonic obstipation. Dictated by: Danish Del Rosario M.D. on 07/02/2018 at 11:18 Approved by: Danish Del Rosario M.D. on 07/02/2018 at 11:18
[2018-07-02 11:26] LABS: BUN Creatinine Ratio 11.4 (6-22); Blood Urea Nitrogen 8 mg/dL (9-20); Carbon Dioxide 31 mmol/L (22-32); Chloride 95 mmol/L (98-107); Cholesterol 150 mg/dL (140-199); Estimated Glomerular Filt Rate > 60.0 mL/min (>60); Glucose 79 mg/dL (70-100); HDL Cholesterol 34 mg/dL (40-60); HEMOLYSIS < 15 (0-50); LDL Cholesterol Calculated 90 mg/dL (<100); Potassium 4.4 mmol/L (3.4-5.1); Sodium 133 mmol/L (137-145); Triglycerides 131 mg/dL (35-150)
== END ==
PROVIDERS: Family Provider Student in an Organized Health Care Education/Training Program; PCP Student in an Organized Health Care Education/Training Program; Visit Provider Internal Medicine Cardiovascular Disease
DX: R10.12 Left upper quadrant pain (principal); I25.10 Atherosclerotic heart disease of native coronary artery without angina pectoris
CPT/HCPCS: 36415; 74018; 80048; 80061

== ENCOUNTER → 2018-12-09 11:23 | Outpatient (CLI) | payer OTHER, MEDICAID, SELFPAY ==
[2018-12-09 12:20] LABS: Cholesterol 160 mg/dL (140-199); HDL Cholesterol 36 mg/dL (40-60); LDL Cholesterol Calculated 97 mg/dL (<100); Triglycerides 136 mg/dL (35-150)
== END ==
PROVIDERS: Family Provider Student in an Organized Health Care Education/Training Program; PCP Student in an Organized Health Care Education/Training Program; Visit Provider Internal Medicine Cardiovascular Disease
DX: E78.49 Other hyperlipidemia (principal)
CPT/HCPCS: 36415; 80061

== ENCOUNTER 2018-12-30 15:00 | Outpatient (RCR) | payer OTHER, MEDICAID, SELFPAY ==
--- NOTE | 2019-01-04 11:36 | PT.OIE ---
Current Diagnoses Constipation, unspecified (12/30/18) Past Medical History (Last Reviewed 08/11/18 @ 14:18 by Namita Nguyen MD) Anxiety (Chronic 1959) Asthma (Chronic 1977) Cataracts, bilateral (Chronic 2015) Chickenpox (Resolved Unknown) Chronic back pain (Chronic 1994) Colon polyps (Resolved 2017) Constipation (Chronic Unknown) Coronary artery disease (Chronic 2004) Depression (Chronic 1959) Fibromyalgia (Chronic 1992) Foot pain (Resolved 2015) Frequent urination (Chronic 1999) Low testosterone (Chronic 2014) Measles (Resolved Unknown) Myocardial infarction (Resolved 2004) PTSD (post-traumatic stress disorder) (Chronic 1999) Shoulder pain (Resolved 2016) Past Surgical History (Last Reviewed 08/11/18 @ 14:18 by Namita Nguyen MD) History of throat surgery (Resolved 2010) History of vasectomy (Resolved) Visit Care Team Role Provider Type Juan Hand MD Primary Care Provider Physician Specialty: Internal Medicine Address: [address] [place] [address], [address], [facility] Email: [email or web address] Ruth Ann Barnard PA-C Attending Provider Non-Staff Specialty: Medical Address: [address] [place] [address], [id number] Email: Physical Therapy Initial Evaluation PT-OP-A Visit Information Start: 01/02/19 18:16 Freq: Status: Active Protocol: Document 12/30/18 15:15 [facility] (Rec: 01/02/19 18:26 [facility] [email or web address]) Out-Patient Physical Therapy Visit Information Visit Information Visit Type Initial Evaluation Visit Note 58 year old male referred to PT to help decrease incidence of constipation Visit Start Time 15:15 Visit Stop Time 16:00 Total Visit Minutes 45 Visit Number 1 Evaluation Information Evaluation Date 12/30/18 PT-OP-B Current Condition Start: 01/02/19 18:16 Freq: Status: Active Protocol: Document 12/30/18 15:15 [facility] (Rec: 01/02/19 18:26 [facility] [email or web address]) Current Condition History of Current Condition Onset Date 2 1/2 years Current Complaints constipation History of Current Condition Mr Keen reports his symptoms of constipation began after a upper endoscopy and colonoscopy. He became very sick following this procedure and and has had symptoms of constipation since this time. He reports he is a vegan and eats a diet rich in vegetables and drinks a large amount of water during the day. He also reports walking at least 3 miles per day He is taking laxitives daily or he will experience very firm stool that cannot be passed without considerable straining. He does have a history of a R inguinal hernia 11 years ago. Treatment Goals Patient/Caregiver Goals pts goals are to eliminate constipation PT-OP-F Manual Assessment Start: 01/02/19 18:16 Freq: Status: Active Protocol: Document 12/30/18 15:15 [facility] (Rec: 01/04/19 09:39 [facility] [email or web address]) Manual Assessments Soft Tissue Assessment Soft Tissue Mobility Assessment WNL Joint Mobility Assessment Joint Mobility Assessment WNL PT-OP-J Posture/Palpation/Skin Start: 01/02/19 18:16 Freq: Status: Active Protocol: Document 12/30/18 15:15 [facility] (Rec: 01/04/19 09:39 [facility] [email or web address]) Palpation Assessment Location Two Palpation Location c/o swelling in the small intestine region Palpation Findings Edema One Palpation Location abdominal region and large intestine Palpation Findings Soft Tissue Tightness Palpation Details myofasial tightness around the large intestine PT-OP-M Strength Start: 01/04/19 09:39 Freq: Status: Active Protocol: Document 12/30/18 15:15 [facility] (Rec: 01/04/19 09:40 [facility] [email or web address]) Trunk Strength Trunk Manual Muscle Testing Flexion 5 Normal Extension 5 Normal Rotation Left 5 Normal Rotation Right 5 Normal Lateral Flexion Left 5 Normal Lateral Flexion Right 5 Normal Hip Strength Hip Manual Muscle Testing Right Flexion (L2) 5 Normal Abduction 5 Normal External Rotation 5 Normal Left Flexion (L2) 5 Normal Abduction 5 Normal External Rotation 5 Normal PT-OP-Q Treatments Start: 01/02/19 18:16 Freq: Status: Active Protocol: Document 12/30/18 15:15 [facility] (Rec: 01/04/19 09:39 [facility] [email or web address]) Self-Care/Home Management Treatment Education Other Education Ash was instructed today in ILU self massage for the colon , squatty potty to help with position of the descending colon, and was given stretches that help improve constipation PT-OP-T Assessment and Plan Start: 01/02/19 18:16 Freq: Status: Active Protocol: Document 12/30/18 15:15 [facility] (Rec: 01/04/19 09:39 [facility] [email or web address]) Physical Therapy Assessment Goals One Impairment Ash has complaints of constipation despite efforts to regulate his stool Short Term Goal (STG) Ash is educated in use of a squatty potty, ILU self massage for the colon to stimulate the bowels and pelvic stretches for constipation STG Duration 1 day Assessment Summary Assessment Ash presents to physical therapy today with symptoms of constipation that began following a infection after a upper endoscopy and colonoscopy. This happened 2 .5 years ago. He notes after this infection he began getting severe acid reflux and a x-ray was taken that showed he was backed up with stool throughout his whole colon. He now is taking probiotics daily, he maintains a vegan diet with lots of vegetables and water intake. He walks 3 miles almost every day throughout the week. He is also taking the suppliment Calm which helps him have regular stool. If he does not take this then he notes he will have stool that is like Cement He does have a history of a right inguinal hernia 11 years ago. He denies any symptoms of fecal incontinence and denies any pelvic pain or rectal pain. He is able to facilitate a pelvic floor contraction. I worked with Ash today on a self massage for his colon to do daily. We talked about getting a squatty potty for home to better align his colon . I gave him stretches for his pelvis to help stimulate bowel movements. He may also benefit from a comprehensive stool sample taken as his complaints of swelling are in the small intestine region. This may be helpful to rule out SIBO. At this time he would like to try these things at home and will follow up should he need any further care. Physical Therapy Plan Frequency and Duration Frequency of Treatment Evaluation only Plan of Care Start Date 12/30/18 Plan of Care End Date 12/30/18 Discharge Physical Therapy Discharge Comments The patient was seen for a initial evaluation only with self care instructions given for home.
--- NOTE | 2019-01-05 11:29 | PT.OPDS ---
Current Diagnoses Constipation, unspecified (12/30/18) Visit Care Team Role Provider Type Juan Hand MD Primary Care Provider Physician Specialty: Internal Medicine Address: [address] [place] [address], [address], [place], [address] Email: [email or web address] Ruth Ann Barnard PA-C Attending Provider Non-Staff Specialty: Medical Address: [address] [place] [address], [id number] Email: Visit Number Visit Number 1 Discharge Summary PT-OP-B Current Condition Start: 01/02/19 18:16 Freq: Status: Active Protocol: Document 12/30/18 15:15 [facility] (Rec: 01/02/19 18:26 [facility] [email or web address]) Current Condition History of Current Condition Onset Date 2 1/2 years Current Complaints constipation History of Current Condition Mr Keen reports his symptoms of constipation began after a upper endoscopy and colonoscopy. He became very sick following this procedure and and has had symptoms of constipation since this time. He reports he is a vegan and eats a diet rich in vegetables and drinks a large amount of water during the day. He also reports walking at least 3 miles per day He is taking laxitives daily or he will experience very firm stool that cannot be passed without considerable straining. He does have a history of a R inguinal hernia 11 years ago. Treatment Goals Patient/Caregiver Goals pts goals are to eliminate constipation PT-OP-F Manual Assessment Start: 01/02/19 18:16 Freq: Status: Active Protocol: Document 12/30/18 15:15 [facility] (Rec: 01/04/19 09:39 [facility] [email or web address]) Manual Assessments Soft Tissue Assessment Soft Tissue Mobility Assessment WNL Joint Mobility Assessment Joint Mobility Assessment WNL PT-OP-J Posture/Palpation/Skin Start: 01/02/19 18:16 Freq: Status: Active Protocol: Document 12/30/18 15:15 [facility] (Rec: 01/04/19 09:39 [facility] [email or web address]) Palpation Assessment Location Two Palpation Location c/o swelling in the small intestine region Palpation Findings Edema One Palpation Location abdominal region and large intestine Palpation Findings Soft Tissue Tightness Palpation Details myofasial tightness around the large intestine PT-OP-M Strength Start: 01/04/19 09:39 Freq: Status: Active Protocol: Document 12/30/18 15:15 [facility] (Rec: 01/04/19 09:40 [facility] [email or web address]) Trunk Strength Trunk Manual Muscle Testing Flexion 5 Normal Extension 5 Normal Rotation Left 5 Normal Rotation Right 5 Normal Lateral Flexion Left 5 Normal Lateral Flexion Right 5 Normal Hip Strength Hip Manual Muscle Testing Right Flexion (L2) 5 Normal Abduction 5 Normal External Rotation 5 Normal Left Flexion (L2) 5 Normal Abduction 5 Normal External Rotation 5 Normal PT-OP-T Assessment and Plan Start: 01/02/19 18:16 Freq: Status: Active Protocol: Document 01/05/19 11:29 [facility] (Rec: 01/05/19 11:29 [facility] [email or web address]) Physical Therapy Plan Discharge Physical Therapy Discharge Comments pt was seen for initial evaluation only and was given instruction on self care for home
== END 2019-01-12 16:17 | disposition home or self-care (01) ==
LOC: PHYS 15:00
PROVIDERS: PCP Student in an Organized Health Care Education/Training Program; Visit Provider Physician Assistant
DX: K59.00 Constipation, unspecified (principal)
CPT/HCPCS: 97161; 97535

== ENCOUNTER → 2019-02-03 12:07 | Outpatient (CLI) | payer OTHER, MEDICAID, SELFPAY ==
--- NOTE | 2019-02-03 12:09 | DI.RAD.S_ITS ---
PROCEDURE: XR HIP W PEL IF DONE RT 2V COMPARISON: [facility], CR, XR HIP W PEL IF DONE LT 2V, 10/07/2017, 17:01. INDICATIONS: Right hip pain FINDINGS: No source of asymmetric hip pain is found. There is only a slight degree of degenerative osteoarthritis in each hip, symmetric. No trauma found. IMPRESSION: Minimal hip joint osteoarthritis symmetric bilaterally. Dictated by: Danish Del Rosario M.D. on 02/03/2019 at 14:08 Approved by: Danish Del Rosario M.D. on 02/03/2019 at 14:09
== END ==
PROVIDERS: PCP Student in an Organized Health Care Education/Training Program; Visit Provider Student in an Organized Health Care Education/Training Program
DX: M25.551 Pain in right hip (principal)
CPT/HCPCS: 73502

== ENCOUNTER → 2019-06-08 12:47 | Outpatient (CLI) | payer OTHER, MEDICAID, SELFPAY ==
[2019-06-08 14:56] LABS: Cholesterol 93 mg/dL (140-199); HDL Cholesterol 37 mg/dL (40-60); LDL Cholesterol Calculated 37 mg/dL (<100); Triglycerides 97 mg/dL (35-150)
== END ==
PROVIDERS: PCP Student in an Organized Health Care Education/Training Program; Referring Provider Internal Medicine Cardiovascular Disease; Visit Provider Internal Medicine Cardiovascular Disease
DX: E78.00 Pure hypercholesterolemia, unspecified (principal)
CPT/HCPCS: 36415; 80061

== ENCOUNTER → 2019-07-08 14:23 | Outpatient (CLI) | payer OTHER, MEDICAID, SELFPAY ==
[2019-07-08 14:47] LABS: Bacteria Urine None Seen; RBC Urine None Seen (0-5/HPF); WBC Urine None Seen (0-5/HPF)
[2019-07-08 15:44] LABS: Appearance Urine UA CLEAR; Bilirubin Urine UA NEGATIVE (NEGATIVE); Color Urine UA YELLOW; Glucose Urine UA NEGATIVE (Negative); Ketones Urine UA NEGATIVE (NEGATIVE); Leukocyte Esterase Urine UA NEGATIVE (NEGATIVE); Nitrite Urine UA NEGATIVE (Negative); Occult Blood Urine UA NEGATIVE (Negative); Protein Urine UA NEGATIVE (Negative); Specific Gravity Urine UA 1.015 (1.000-1.035); Urobilinogen Urine UA 0.2 E.U./dL (0.2)
[2019-07-08 17:08] LABS: Culture Indicated Urine Cult Not Indicated; Urine Comments Microscopic Normal
== END ==
PROVIDERS: PCP Student in an Organized Health Care Education/Training Program; Referring Provider Urology; Visit Provider Urology
DX: N39.0 Urinary tract infection, site not specified (principal)
CPT/HCPCS: 81001

== ENCOUNTER → 2019-08-01 17:35 | Outpatient (CLI) | payer OTHER, MEDICAID, SELFPAY ==
[2019-08-01 18:42] LABS: Prostate Specific Antigen 0.514 ng/mL (0.10-4.00)
== END ==
PROVIDERS: PCP Student in an Organized Health Care Education/Training Program; Referring Provider Urology; Visit Provider Urology
DX: Z12.5 Encounter for screening for malignant neoplasm of prostate (principal)
CPT/HCPCS: 36415; 84153

== ENCOUNTER → 2019-11-11 14:55 | Outpatient (CLI) | payer OTHER, MEDICAID, SELFPAY ==
[2019-11-12 15:09] LABS: COVID19 Sendout Not Detected (Not Detected)
== END ==
PROVIDERS: PCP Family Medicine; Visit Provider Physician Assistant
DX: R43.2 Parageusia (principal)
CPT/HCPCS: 87635

== ENCOUNTER → 2019-11-17 13:07 | Outpatient (CLI) | payer OTHER, MEDICAID, SELFPAY ==
[2019-11-17 14:12] LABS: Add Manual Diff / Slide Review NO; Basophils Absolute Auto 0 /uL (0-100); Basophils Percent Auto 0.8 % (0-2); Eosinophils Absolute Auto 0 /uL (0-450); Eosinophils Percent Auto 0.9 % (2-4); Hematocrit 50.8 % (41-53); Lymphocytes Absolute Auto 1000 /uL (1100-4500); Lymphocytes Percent Auto 19.5 % (25-40); Mean Corpuscular HGB Conc 33.4 % (30-36); Mean Corpuscular Hemoglobin 32.4 PG (26-34); Mean Corpuscular Volume 96.9 fL (80-100); Monocytes Absolute Auto 300 /uL (0-900); Monocytes Percent Auto 5.4 % (3-14); Neutrophils Absolute Auto 3800 /uL (1500-7000); Neutrophils Percent Auto 73.4 % (50-75); Platelet Count 185 X10^3/uL (150-400); Red Blood Cell Count 5.24 X10^6/uL (4.5-5.9); Red Cell Distribution Width 13.3 % (11.6-14.8); White Blood Cell Count 5.1 X10^3/uL (4.5-11.0)
[2019-11-17 14:35] LABS: Alanine Aminotransferase 22 IU/L (<50); Albumin 3.9 g/dL (3.5-5.0); Albumin Globulin Ratio 2.1 (1.0-2.8); Alkaline Phosphatase 41 U/L (38-126); Aspartate Aminotransferase 32 IU/L (17-59); BUN Creatinine Ratio 10.4 (6-22); Bilirubin Total 0.5 mg/dL (0.2-1.3); Blood Urea Nitrogen 7 mg/dL (9-20); Calcium 8.9 mg/dL (8.4-10.2); Carbon Dioxide 29 mmol/L (22-32); Chloride 102 mmol/L (98-107); Cholesterol 98 mg/dL (140-199); Estimated Glomerular Filt Rate > 60.0 mL/min (>60); Globulin 1.9 g/dL (1.7-4.1); Glucose 93 mg/dL (80-110); HDL Cholesterol 38 mg/dL (40-60); HEMOLYSIS < 15 (0-50); LDL Cholesterol Calculated 35 mg/dL (<100); Potassium 4.5 mmol/L (3.4-5.1); Sodium 136 mmol/L (137-145); Total Protein 5.8 g/dL (6.3-8.2); Triglycerides 126 mg/dL (35-150)
== END ==
PROVIDERS: PCP Family Medicine; Referring Provider Family Medicine; Visit Provider Family Medicine
DX: I10 Essential (primary) hypertension (principal); I25.2 Old myocardial infarction; Z12.5 Encounter for screening for malignant neoplasm of prostate
CPT/HCPCS: 36415; 80053; 80061; 85025; G0103

== ENCOUNTER → 2020-04-13 17:21 | Outpatient (CLI) | payer OTHER, MEDICAID, SELFPAY ==
--- NOTE | 2020-04-13 17:23 | DI.RAD.S_ITS ---
PROCEDURE: XR SHOULDER RT MIN 2V INDICATIONS: Moderate-severe scapula and shoulder pain TECHNIQUE: 3 views of the shoulder were acquired. COMPARISON: None. FINDINGS: Bones: No fractures or dislocations. No suspicious bony lesions. Visualized ribs appear intact. Mild periarticular osteophyte formation at the acromioclavicular and glenohumeral joints. Soft tissues: No suspicious soft tissue calcifications. IMPRESSION: Osteoarthritis. No acute fracture. No osseous lesion. If symptoms and/or clinical suspicion for pathology persist, further assessment with repeat, or advanced imaging (e.g., CT, MRI, or bone scan) may be helpful for further assessment. Dictated by: Sharon Eugene M.D. on 04/13/2020 at 18:18 Approved by: Sharon Eugene M.D. on 04/13/2020 at 18:18
--- NOTE | 2020-04-13 17:23 | DI.RAD.S_ITS ---
PROCEDURE: XR SCAPULA RT INDICATIONS: Moderate-severe scapula and shoulder pain TECHNIQUE: 2 views of the scapula were acquired. COMPARISON: None. FINDINGS: Bones: No fractures or dislocations. No suspicious bony lesions. Visualized ribs appear intact. Soft tissues: Overlying soft tissues appear normal. IMPRESSION: No acute fracture. No osseous lesion. If symptoms and/or clinical suspicion for pathology persist, further assessment with repeat, or advanced imaging (e.g., CT, MRI, or bone scan) may be helpful for further assessment. Dictated by: Sharon Eugene M.D. on 04/13/2020 at 18:18 Approved by: Sharon Eugene M.D. on 04/13/2020 at 18:19
== END ==
PROVIDERS: PCP Family Medicine; Referring Provider Family Medicine; Visit Provider Family Medicine
DX: M19.011 Primary osteoarthritis, right shoulder (principal); M25.511 Pain in right shoulder; M95.8 Other specified acquired deformities of musculoskeletal system; M89.8X1 Other specified disorders of bone, shoulder
CPT/HCPCS: 73010; 73030

== ENCOUNTER → 2020-05-30 13:09 | Outpatient (CLI) | payer OTHER, MEDICAID, SELFPAY ==
[2020-05-30] MEDS: COVID-19 VACC #1, MRNA(MOD) 100 MCG/0.5 ML VIAL IM (13:17)
== END ==
PROVIDERS: PCP Family Medicine; Visit Provider Internal Medicine
DX: Z23 Encounter for immunization (principal)
CPT/HCPCS: 0011A; 91301

== ENCOUNTER → 2020-06-12 16:12 | Outpatient (CLI) | payer OTHER, MEDICAID, SELFPAY ==
--- NOTE | 2020-06-12 16:18 | DI.MRI.S_ITS ---
PROCEDURE: MR SHOULDER RT WO CON INDICATIONS: Chronic right shoulder pain not improved with conserve mgmt TECHNIQUE: Noncontrast oblique coronal T2 fast spin echo with fat saturation, oblique sagittal T1 spin echo and T2 fast spin echo with fat saturation, axial T1 spin echo and T2 fast spin echo with fat saturation through the shoulder. COMPARISON: None. FINDINGS: Image quality: Excellent. Rotator cuff: There is mild T2 signal elevation throughout the supraspinatus and infraspinatus tendons at the humeral insertion sites, indicating tendinopathy. Superimposed low-grade partial-thickness bursal surface tearing of the anterior supraspinatus. Superimposed low-grade intrasubstance tearing of the mid and posterior supraspinatus tendon at the humeral insertion site. There is superimposed low-grade partial-thickness intrasubstance tearing of the mid infraspinatus tendon at the humeral insertion site. Subscapularis and teres minor tendons are intact. No rotator cuff atrophy. Bones and bursae: No bone marrow contusions or fractures. Moderate acromioclavicular joint degeneration. The acromion demonstrates conventional anatomy, without an os acromiale. No pathologic subacromial-subdeltoid or subcoracoid bursal fluid is present. Capsule and soft tissues: There is linear high T2 signal intensity traversing the labrum diffusely, especially posteriorly inferiorly. The long head of the biceps tendon demonstrates normal location and morphology. The rotator interval appears normal, without fibrosis. The coracohumeral ligament is normal in thickness. IMPRESSION: 1. Supraspinatus and infraspinatus tendinopathy with superimposed low-grade partial-thickness tearing. No full-thickness rotator cuff tear. 2. Acromioclavicular joint osteoarthritis. 3. Glenoid labral tearing. Dictated by: Sharon Eugene M.D. on 06/13/2020 at 8:51 Approved by: Sharon Eugene M.D. on 06/13/2020 at 9:01
== END ==
PROVIDERS: PCP Family Medicine; Referring Provider Family Medicine; Visit Provider Family Medicine
DX: M25.511 Pain in right shoulder (principal); M19.011 Primary osteoarthritis, right shoulder; M75.111 Incomplete rotator cuff tear or rupture of right shoulder, not specified as traumatic; S43.401A Unspecified sprain of right shoulder joint, initial encounter; G89.29 Other chronic pain
CPT/HCPCS: 73221

== ENCOUNTER 2020-06-25 13:00 | Outpatient (RCR) | payer OTHER, MEDICAID, SELFPAY ==
--- NOTE | 2020-05-22 17:35 | PT.OIE ---
Current Diagnoses Pain in right shoulder (05/22/20) Past Medical History (Last Updated 04/13/20 @ 16:56 by Jasson Alegria MD) Acute pain of right shoulder Anxiety (1959) Asthma (1977) Cataracts, bilateral (2015) Cervical somatic dysfunction Chickenpox (Unknown) Chronic back pain (1994) Colon polyps (2017) Constipation (Unknown) Coronary artery disease (2004) Cranial somatic dysfunction Depression (1959) Excessive cerumen in left ear canal Fibromyalgia (1992) Foot pain (2015) Frequent urination (1999) Low back pain Low testosterone (2014) Measles (Unknown) Myocardial infarction (2004) Nonallopathic lesion of upper extremities, not elsewhere classified Pelvic somatic dysfunction Primary osteoarthritis, right shoulder PTSD (post-traumatic stress disorder) (1999) Right wrist pain Screening for prostate cancer Segmental and somatic dysfunction of abdomen and other regions Segmental and somatic dysfunction of lumbar region Segmental and somatic dysfunction of rib cage Segmental and somatic dysfunction of sacral region Segmental and somatic dysfunction of thoracic region Segmental and somatic dysfunction of upper extremity Shoulder pain (2016) TMJ (temporomandibular joint disorder) Past Surgical History (Last Updated 08/10/19 @ 12:14 by Haeth Shook DO) History of throat surgery (2010) History of vasectomy S/P repair of hydrocele Visit Care Team Role Provider Type Heath Shook DO Attending Provider Physician Primary Care Provider Referring Provider Specialty: Family Practice Address: [address] [place] [address], [facility] Email: Physical Therapy Initial Evaluation PT-OP-A Visit Information Start: 05/22/20 12:50 Freq: Status: Active Protocol: Document 05/22/20 16:23 (Rec: 05/22/20 17:34 [email or web address]) Out-Patient Physical Therapy Visit Information Visit Information Visit Type Initial Evaluation Visit Start Time 13:00 Visit Stop Time 13:45 Total Visit Minutes 45 Visit Number 1/ Number of RESPIRATORY CARE INSTRUCTOR Visits 0 Evaluation Information Evaluation Date 05/22/20 Precautions Precautions Latex allergy PT-OP-B Current Condition Start: 05/22/20 12:50 Freq: Status: Active Protocol: Document 05/22/20 16:23 HH (Rec: 05/22/20 17:34 [email or web address]) Current Condition History of Current Condition Onset Date 2018 Current Complaints Chronic R shoulder pain, neck pain, unable to reach overhead . History of Current Condition Pt is a 60yo R-hand dominant male here for her chronic R shoulder pain, neck pain since 2018 after a fall who landed on his R side of the body. Pt c/o he has pain 5/10 located at inferior pole of R scapula, top of R shoulder and RTC region. Pt has not been able to lift his R arm pass 90 degrees ever since which significantly limits his daily activites such as house cleaning, reaching for cupboard and roxi/doff shirts. His pain is normally worse with increased in activity and inactivity/ heat pad tend to help. His recent X-ray = -ve findings with only OA at R shoulder joint. Pt also reports of new onset of jaw pain and headache on his R side started a month ago. Pt had steroid injection in Dec, 2018 and he felt amazing but only lasted for 2 months. He recently had X-ray which only shows OA at R shoulder joint. His PCP has also ordered EMG/ NCV to screen for radiculopathy and scapular winging long thoracic nerve injury, and MRI to evaluate for RTC tear, labral tear. Pt had a course of PT for 8 visits last year but it wasnt successful. Prior Treatments and Tests X-ray R shd 04/13/20 IMPRESSION: Osteoarthritis. No acute fracture. No osseous lesion. If symptoms and/or clinical suspicion for pathology persist, further assessment with repeat, or advanced imaging (e.g., CT, MRI, or bone scan) may be helpful for further assessment. x-ray 04/13/20 R scapula IMPRESSION: No acute fracture . No osseous lesion. If symptoms and/or clinical suspicion for pathology persist, further assessment with repeat, or advanced imaging (e.g., CT, MRI, or bone scan) may be helpful for further assessment . Personal Factors Other Personal Factors That May Effect depression Therapy/Recovery fibromyalgia arterial disease heart disease PT-OP-C Subjective Start: 05/22/20 12:50 Freq: Status: Active Protocol: Document 05/22/20 16:23 (Rec: 05/22/20 17:34 [email or web address]) Patient Questionnaires Quick Dash- Upper Extremity Quick Dash UE Score 50 Quick Dash UE Impairment 40 to 59% Impaired (Score 40- 59) OP-PT Pain Assessment Pain Assessment Grid Paper Pain Assessment Grid Completed Yes Location Right Shoulder Pain Location Details R shoulder Intensity 5 Scale Used Numeric (0 - 10) Description Aching Frequency Constant Pain Aggravating Factors Activity,Exercise Pain Alleviating Factors Heat,Inactivity PT-OP-F Manual Assessment Start: 05/22/20 12:50 Freq: Status: Active Protocol: Document 05/22/20 16:23 HH (Rec: 05/22/20 17:34 [email or web address]) Manual Assessments Soft Tissue Assessment Soft Tissue Mobility Assessment significant tenderness to pressure at levator scap, pecs , trap and RTC. pt shows significant muscle atrophy at RTC and spine of R scapula region PT-OP-K Range of Motion Start: 05/22/20 12:50 Freq: Status: Active Protocol: Document 05/22/20 16:23 HH (Rec: 05/22/20 17:34 [email or web address]) Cervical Spine Range of Motion Cervical Spine Active Degrees Testing Position Sitting Flexion 60 Extension 42 Rotation Left 63 Rotation Right 52 Lateral Flexion Left 35 Lateral Flexion Right 52 ROM Limitations Soft Tissue Tightness,Pain Shoulder Goniometric Range of Motion Shoulder Right Passive Shoulder ROM WFL No Testing Position Supine Flexion 135 Abduction 155 Comments pain at end range Right Active Shoulder ROM WFL No Testing Position Standing Flexion 92 Abduction 95 External Rotation at 90 degrees 85 Abduction Internal Rotation 70 Comments pain noted with all ROM Left Active Shoulder ROM WFL Yes Testing Position Standing Flexion 155 Abduction 135 External Rotation at 90 degrees 90 Abduction Internal Rotation 75 PT-OP-L Special Tests Start: 05/22/20 12:50 Freq: Status: Active Protocol: Document 05/22/20 16:23 HH (Rec: 05/22/20 17:34 [email or web address]) Special Tests Cervical Spine Special Tests Foraminal Compression Test Results +ve B R>L Comments radiating pain to R trap Spurling's Test Test Results +ve B R>L Comments radiating pain to R trap Shoulder Special Tests Yergason's Biceps Test Results pain at R shoulder Neer Impingement Test Results pain at R shoulder Lift-Off Rotator Cuff Test Results pain at R shoulder Comments weakness noted Peguero Alfred Impingement Test Results pain at R shoulder Drop Arm Rotator Cuff Test Results pain at R shoulder Comments weakness noted PT-OP-M Strength Start: 05/22/20 12:50 Freq: Status: Active Protocol: Document 05/22/20 16:23 HH (Rec: 05/22/20 17:34 [email or web address]) Shoulder Strength Shoulder Manual Muscle Testing Left Flexion 5 Normal Extension 5 Normal Abduction (C5) 5 Normal Adduction 5 Normal External Rotation 5 Normal Internal Rotation 5 Normal Right Flexion 3+ Fair+ Extension 4- Good- Abduction (C5) 3+ Fair+ Adduction 4- Good- External Rotation 3+ Fair+ Internal Rotation 3+ Fair+ Elbow/Forearm Strength Elbow and Forearm Manual Muscle Testing Right Flexion (C6) 4+ Good+ Extension (C7) 4+ Good+ Left Flexion (C6) 5 Normal Extension (C7) 5 Normal PT-OP-T Assessment and Plan Start: 05/22/20 12:50 Freq: Status: Active Protocol: Document 05/22/20 16:23 (Rec: 05/22/20 17:34 [email or web address]) Physical Therapy Assessment Rehab Potential Rehabilitation Potential Fair Evaluation Complexity Number of Personal Factors/Comorbidities 3 or More Number of Body Systems Impaired 1-2 Clinical Presentation at Evaluation Stable Impairments Impairments Activity Tolerance,Functional Activities,Functional Mobility ,Pain,Posture,ROM,Soft Tissue Mobility,Strength Goals HEP Impairment pt does not ahve HEP Nuclear Medicine Technician Goal (LTG) pt will be able to complete HEP safely and independently with no increase in shoulder pain LTG Duration 6 weeks pain Impairment pt has constant R shoulder pain 5/10 Short Term Goal (STG) pt will have no more than 4/10 R shoulder pain in a daily basis to improve his quality of life STG Duration 4weeks Skilled Nursing Goal (LTG) pt will have no more than 3/10 R shoulder pain in a daily basis to improve his quality of life LTG Duration 8 weeks ROM Impairment pt has approx 90 for R shoulder flexion and abduction Short Term Goal (STG) pt will improve his R shoulder AROM by at least 10 degrees with no increase in pain. STG Duration 4 weeks Nuclear Medicine Technician Goal (LTG) pt will improve his R shoulder AROM by at least 20 degrees with no increase in pain. LTG Duration 8 weeks quickdash Impairment pt scores 50 on quickdash Short Term Goal (STG) Pt will be able to score <45 on quickdash to improve his overall quality of life STG Duration 4 weeks Nuclear Medicine Technician Goal (LTG) Pt will be able to score <35 on quickdash to improve his overall quality of life LTG Duration 8 weeks Assessment Summary Assessment pt is a 60yo R hand dominant male here for his chronic R shoulder and neck pain since 2018 after a fall on his R shoulder. Upon assessment, I suspect pt suffered from a torn supraspinatus tendon and infraspinatus d/t limited AROM but WFL with PROM, along with significant muscle atrophy at superior and posterior aspect of R shoulder. Pt also shows signs of cervical radiculopathy who has radiating pain with cervical movements. Pt is currently pending for MRI and EMG/NCV to evaluate possible long thoracic nerve injury, RTC tear, labral tear and cervical radiculopathy. In the mean time, I recommended to attempt a course of PT for 8 weeks to improve his scapular stability, ROM and strength but targeting surronding shoulder and scapular stabilizers. Pt is receptive and understands the role of PT and possible outcome. Physical Therapy Plan Frequency and Duration Frequency of Treatment 2x/Week Duration of Treatment 8 weeks Plan of Care Start Date 05/22/20 Plan of Care End Date 07/21/20 Therapeutic Interventions Therapeutic Interventions Home Exercise Program,Joint Mobilizations,Manual Therapy, Neuromuscular Re-education, Patient/Caregiver Education, Self-Care/Home Management,Soft Tissue Mobilization,Taping, Therapeutic Activities, Therapeutic Exercises Modalities Biofeedback,Cold Pack/Ice Massage,Electric Stimulation, Hot Packs,Infrared Therapy, Traction- Mechanical, Ultrasound Next Visit Focus/Plan Next Note Type Treatment Note Next Visit Plan begin scapular stabilization check T spine movement. retraction, protraction shoulder shrug, shoulder punch hotpack at the end
--- NOTE | 2020-05-24 12:05 | PT.OTN ---
Current Diagnoses Pain in right shoulder (05/24/20) Physical Therapy Treatment Note PT-OP-A Visit Information Start: 05/22/20 12:50 Freq: Status: Active Protocol: Document 05/24/20 11:19 HH (Rec: 05/24/20 12:05 HH [id number]) Out-Patient Physical Therapy Visit Information Visit Information Visit Type Treatment Note Visit Start Time 11:19 Visit Stop Time 12:00 Total Visit Minutes 41 Visit Number 2/9 Number of INSURANCE AND BENEFITS CLERK Visits 0 PT-OP-B Current Condition Start: 05/22/20 12:50 Freq: Status: Active Protocol: Document 05/22/20 16:23 HH (Rec: 05/22/20 17:34 HH [email or web address]) Current Condition History of Current Condition Onset Date 2017 Current Complaints Chronic R shoulder pain, neck pain, unable to reach overhead . History of Current Condition Pt is a 60yo R-hand dominant male here for her chronic R shoulder pain, neck pain since 2018 after a fall who landed on his R side of the body. Pt c/o he has pain 5/10 located at inferior pole of R scapula, top of R shoulder and RTC region. Pt has not been able to lift his R arm pass 90 degrees ever since which significantly limits his daily activites such as house cleaning, reaching for cupboard and roxi/doff shirts. His pain is normally worse with increased in activity and inactivity/ heat pad tend to help. His recent X-ray = -ve findings with only OA at R shoulder joint. Pt also reports of new onset of jaw pain and headache on his R side started a month ago. Pt had steroid injection in Dec, 2018 and he felt amazing but only lasted for 2 months. He recently had X-ray which only shows OA at R shoulder joint. His PCP has also ordered EMG/ NCV to screen for radiculopathy and scapular winging long thoracic nerve injury, and MRI to evaluate for RTC tear, labral tear. Pt had a course of PT for 8 visits last year but it wasnt successful. Prior Treatments and Tests X-ray R shd 04/13/20 IMPRESSION: Osteoarthritis. No acute fracture. No osseous lesion. If symptoms and/or clinical suspicion for pathology persist, further assessment with repeat, or advanced imaging (e.g., CT, MRI, or bone scan) may be helpful for further assessment. x-ray 04/13/20 R scapula IMPRESSION: No acute fracture . No osseous lesion. If symptoms and/or clinical suspicion for pathology persist, further assessment with repeat, or advanced imaging (e.g., CT, MRI, or bone scan) may be helpful for further assessment . Personal Factors Other Personal Factors That May Effect depression Therapy/Recovery fibromyalgia arterial disease heart disease PT-OP-C Subjective Start: 05/22/20 12:50 Freq: Status: Active Protocol: Document 05/24/20 11:19 HH (Rec: 05/24/20 12:05 [id number]) OP-PT Subjective Patient Comments Patient Comments I was doing okay after the evaluation Patient Reported Progress Improving PT-OP-F Manual Assessment Start: 05/22/20 12:50 Freq: Status: Active Protocol: Document 05/22/20 16:23 HH (Rec: 05/22/20 17:34 [email or web address]) Manual Assessments Soft Tissue Assessment Soft Tissue Mobility Assessment significant tenderness to pressure at levator scap, pecs , trap and RTC. pt shows significant muscle atrophy at RTC and spine of R scapula region PT-OP-K Range of Motion Start: 05/22/20 12:50 Freq: Status: Active Protocol: Document 05/22/20 16:23 HH (Rec: 05/22/20 17:34 [email or web address]) Cervical Spine Range of Motion Cervical Spine Active Degrees Testing Position Sitting Flexion 60 Extension 42 Rotation Left 63 Rotation Right 52 Lateral Flexion Left 35 Lateral Flexion Right 52 ROM Limitations Soft Tissue Tightness,Pain Shoulder Goniometric Range of Motion Shoulder Right Passive Shoulder ROM WFL No Testing Position Supine Flexion 135 Abduction 155 Comments pain at end range Right Active Shoulder ROM WFL No Testing Position Standing Flexion 92 Abduction 95 External Rotation at 90 degrees 85 Abduction Internal Rotation 70 Comments pain noted with all ROM Left Active Shoulder ROM WFL Yes Testing Position Standing Flexion 155 Abduction 135 External Rotation at 90 degrees 90 Abduction Internal Rotation 75 PT-OP-L Special Tests Start: 05/22/20 12:50 Freq: Status: Active Protocol: Document 05/22/20 16:23 HH (Rec: 05/22/20 17:34 [email or web address]) Special Tests Cervical Spine Special Tests Foraminal Compression Test Results +ve B R>L Comments radiating pain to R trap Spurling's Test Test Results +ve B R>L Comments radiating pain to R trap Shoulder Special Tests Yergason's Biceps Test Results pain at R shoulder Neer Impingement Test Results pain at R shoulder Lift-Off Rotator Cuff Test Results pain at R shoulder Comments weakness noted Peguero Alfred Impingement Test Results pain at R shoulder Drop Arm Rotator Cuff Test Results pain at R shoulder Comments weakness noted PT-OP-M Strength Start: 05/22/20 12:50 Freq: Status: Active Protocol: Document 05/22/20 16:23 (Rec: 05/22/20 17:34 [email or web address]) Shoulder Strength Shoulder Manual Muscle Testing Left Flexion 5 Normal Extension 5 Normal Abduction (C5) 5 Normal Adduction 5 Normal External Rotation 5 Normal Internal Rotation 5 Normal Right Flexion 3+ Fair+ Extension 4- Good- Abduction (C5) 3+ Fair+ Adduction 4- Good- External Rotation 3+ Fair+ Internal Rotation 3+ Fair+ Elbow/Forearm Strength Elbow and Forearm Manual Muscle Testing Right Flexion (C6) 4+ Good+ Extension (C7) 4+ Good+ Left Flexion (C6) 5 Normal Extension (C7) 5 Normal PT-OP-Q Treatments Start: 05/22/20 12:50 Freq: Status: Active Protocol: Document 05/24/20 11:19 HH (Rec: 05/24/20 12:05 [id number]) Therapeutic Exercises Supine Exercises chin tucks Reps/Minutes 8 x 2, 3 sec hold Comments for HEP shoulder punch Side bilateral Reps/Minutes 8 x 2 Comments for HEP Standing Exercises shoulder shrugs Side bilateral Reps/Minutes 10 x2 Comments for HEP scapular retraction Side bilateral Reps/Minutes 10 x2 Comments for HEP Manual Therapy Treatment Soft Tissue Mobilization pecs Mobilization Type Sustained Pressure,Trigger Point Release Intensity/Depth Moderate Body Position Supine Comments significant tenderness at R side RTCs Mobilization Type Sustained Pressure,Trigger Point Release Intensity/Depth Moderate Body Position Sidelying Comments infraspinatus and teres minor subocciputals Mobilization Type Sustained Pressure,Trigger Point Release Intensity/Depth Moderate Body Position Supine Comments significant tenderness at R side PT-OP-T Assessment and Plan Start: 05/22/20 12:50 Freq: Status: Active Protocol: Document 05/24/20 11:19 HH (Rec: 05/24/20 12:05 [id number]) Physical Therapy Assessment Goals HEP Impairment pt does not ahve HEP Deputy Head Goal (LTG) pt will be able to complete HEP safely and independently with no increase in shoulder pain LTG Duration 6 weeks pain Impairment pt has constant R shoulder pain 5/10 Short Term Goal (STG) pt will have no more than 4/10 R shoulder pain in a daily basis to improve his quality of life STG Duration 4weeks Deputy Head Goal (LTG) pt will have no more than 3/10 R shoulder pain in a daily basis to improve his quality of life LTG Duration 8 weeks ROM Impairment pt has approx 90 for R shoulder flexion and abduction Short Term Goal (STG) pt will improve his R shoulder AROM by at least 10 degrees with no increase in pain. STG Duration 4 weeks Deputy Head Goal (LTG) pt will improve his R shoulder AROM by at least 20 degrees with no increase in pain. LTG Duration 8 weeks quickdash Impairment pt scores 50 on quickdash Short Term Goal (STG) Pt will be able to score <45 on quickdash to improve his overall quality of life STG Duration 4 weeks [facility] Goal (LTG) Pt will be able to score <35 on quickdash to improve his overall quality of life LTG Duration 8 weeks Assessment Summary Assessment First tx session today and introduced pt to scap stabilization exercises and cervical deep flexor strengthening. Significant tendernesss at R pecs and RTCs noted. Physical Therapy Plan Frequency and Duration Frequency of Treatment 2x/Week Duration of Treatment 8 weeks Plan of Care Start Date 05/22/20 Plan of Care End Date 07/21/20 Next Visit Focus/Plan Next Note Type Treatment Note Next Visit Plan begin scapular stabilization check T spine movement. retraction, protraction shoulder shrug, shoulder punch hotpack at the end
--- NOTE | 2020-06-01 12:13 | PT-OP ANOTE ---
Pt cancelled am visit on 05/31/20, not feeling well confirmed next appt.
--- NOTE | 2020-06-04 17:15 | PT.OTN ---
Current Diagnoses Pain in right shoulder (06/04/20) Physical Therapy Treatment Note PT-OP-A Visit Information Start: 05/22/20 12:50 Freq: Status: Active Protocol: Document 06/04/20 17:05 MA (Rec: 06/04/20 17:14 MA [email or web address]) Out-Patient Physical Therapy Visit Information Visit Information Visit Type Treatment Note Visit Start Time 13:45 Visit Stop Time 14:45 Total Visit Minutes 60 Visit Number 3/9 Number of ASSEMBLER CONVERTIBLE TOP Visits 1 PT-OP-B Current Condition Start: 05/22/20 12:50 Freq: Status: Active Protocol: Document 05/22/20 16:23 HH (Rec: 05/22/20 17:34 HH [email or web address]) Current Condition History of Current Condition Onset Date 2017 Current Complaints Chronic R shoulder pain, neck pain, unable to reach overhead . History of Current Condition Pt is a 60yo R-hand dominant male here for her chronic R shoulder pain, neck pain since 2018 after a fall who landed on his R side of the body. Pt c/o he has pain 5/10 located at inferior pole of R scapula, top of R shoulder and RTC region. Pt has not been able to lift his R arm pass 90 degrees ever since which significantly limits his daily activites such as house cleaning, reaching for cupboard and roxi/doff shirts. His pain is normally worse with increased in activity and inactivity/ heat pad tend to help. His recent X-ray = -ve findings with only OA at R shoulder joint. Pt also reports of new onset of jaw pain and headache on his R side started a month ago. Pt had steroid injection in Dec, 2018 and he felt amazing but only lasted for 2 months. He recently had X-ray which only shows OA at R shoulder joint. His PCP has also ordered EMG/ NCV to screen for radiculopathy and scapular winging long thoracic nerve injury, and MRI to evaluate for RTC tear, labral tear. Pt had a course of PT for 8 visits last year but it wasnt successful. Prior Treatments and Tests X-ray R shd 04/13/20 IMPRESSION: Osteoarthritis. No acute fracture. No osseous lesion. If symptoms and/or clinical suspicion for pathology persist, further assessment with repeat, or advanced imaging (e.g., CT, MRI, or bone scan) may be helpful for further assessment. x-ray 1/29/21 R scapula IMPRESSION: No acute fracture . No osseous lesion. If symptoms and/or clinical suspicion for pathology persist, further assessment with repeat, or advanced imaging (e.g., CT, MRI, or bone scan) may be helpful for further assessment . Personal Factors Other Personal Factors That May Effect depression Therapy/Recovery fibromyalgia arterial disease heart disease PT-OP-C Subjective Start: 05/22/20 12:50 Freq: Status: Active Protocol: Document 06/04/20 17:05 MA (Rec: 06/04/20 17:14 MA [email or web address]) OP-PT Subjective Patient Comments Patient Comments I have had pain since I fell two years ago. I am going to see if I can get the dr to order an MRI to see if it is torn PT-OP-F Manual Assessment Start: 05/22/20 12:50 Freq: Status: Active Protocol: Document 05/22/20 16:23 HH (Rec: 05/22/20 17:34 HH [email or web address]) Manual Assessments Soft Tissue Assessment Soft Tissue Mobility Assessment significant tenderness to pressure at levator scap, pecs , trap and RTC. pt shows significant muscle atrophy at RTC and spine of R scapula region PT-OP-K Range of Motion Start: 05/22/20 12:50 Freq: Status: Active Protocol: Document 05/22/20 16:23 HH (Rec: 05/22/20 17:34 HH [email or web address]) Cervical Spine Range of Motion Cervical Spine Active Degrees Testing Position Sitting Flexion 60 Extension 42 Rotation Left 63 Rotation Right 52 Lateral Flexion Left 35 Lateral Flexion Right 52 ROM Limitations Soft Tissue Tightness,Pain Shoulder Goniometric Range of Motion Shoulder Right Passive Shoulder ROM WFL No Testing Position Supine Flexion 135 Abduction 155 Comments pain at end range Right Active Shoulder ROM WFL No Testing Position Standing Flexion 92 Abduction 95 External Rotation at 90 degrees 85 Abduction Internal Rotation 70 Comments pain noted with all ROM Left Active Shoulder ROM WFL Yes Testing Position Standing Flexion 155 Abduction 135 External Rotation at 90 degrees 90 Abduction Internal Rotation 75 PT-OP-L Special Tests Start: 05/22/20 12:50 Freq: Status: Active Protocol: Document 05/22/20 16:23 HH (Rec: 05/22/20 17:34 HH [email or web address]) Special Tests Cervical Spine Special Tests Foraminal Compression Test Results +ve B R>L Comments radiating pain to R trap Spurling's Test Test Results +ve B R>L Comments radiating pain to R trap Shoulder Special Tests Yergason's Biceps Test Results pain at R shoulder Neer Impingement Test Results pain at R shoulder Lift-Off Rotator Cuff Test Results pain at R shoulder Comments weakness noted Peguero Alfred Impingement Test Results pain at R shoulder Drop Arm Rotator Cuff Test Results pain at R shoulder Comments weakness noted PT-OP-M Strength Start: 05/22/20 12:50 Freq: Status: Active Protocol: Document 05/22/20 16:23 HH (Rec: 05/22/20 17:34 HH [email or web address]) Shoulder Strength Shoulder Manual Muscle Testing Left Flexion 5 Normal Extension 5 Normal Abduction (C5) 5 Normal Adduction 5 Normal External Rotation 5 Normal Internal Rotation 5 Normal Right Flexion 3+ Fair+ Extension 4- Good- Abduction (C5) 3+ Fair+ Adduction 4- Good- External Rotation 3+ Fair+ Internal Rotation 3+ Fair+ Elbow/Forearm Strength Elbow and Forearm Manual Muscle Testing Right Flexion (C6) 4+ Good+ Extension (C7) 4+ Good+ Left Flexion (C6) 5 Normal Extension (C7) 5 Normal PT-OP-Q Treatments Start: 05/22/20 12:50 Freq: Status: Active Protocol: Document 06/04/20 17:05 MA (Rec: 06/04/20 17:14 MA [email or web address]) Therapeutic Exercises Supine Exercises shoulder punch Side bilateral Reps/Minutes 8 x 2 Comments for HEP Sidelying Exercises Retraction Sidelying Exercise Name R shd retraction Side right Comments manual cues Standing Exercises shoulder shrugs Side bilateral Reps/Minutes 10 x2 Comments for HEP scapular retraction Side bilateral Reps/Minutes 10 x2 Comments for HEP Manual Therapy Treatment Soft Tissue Mobilization pecs Mobilization Type Sustained Pressure,Trigger Point Release Intensity/Depth Moderate Body Position Supine Comments significant tenderness at R side RTCs Mobilization Type Sustained Pressure,Trigger Point Release Intensity/Depth Moderate Body Position Sidelying Comments infraspinatus and teres minor 1 Body Location UT, Interscap, Infraspinatus Mobilization Type Myofascial Release,Rolling, Strumming,Sustained Pressure, Trigger Point Release Intensity/Depth Moderate Body Position Supine Comments R shoulder Self-Care/Home Management Treatment Education Patient Education Home Exercise Program Other Education Using tennis ball for STM at home. Practiced in gym with pt using it on posterior, lateral, and anterior shd PT-OP-R Modalities Start: 05/22/20 12:50 Freq: Status: Active Protocol: Document 06/04/20 17:05 MA (Rec: 06/04/20 17:14 MA [email or web address]) Hot Pack/Cold Pack Treatment Hot Pack Location R shd Patient Position Supine Treatment Duration (minutes) 15 Patient Tolerance Good PT-OP-T Assessment and Plan Start: 05/22/20 12:50 Freq: Status: Active Protocol: Document 06/04/20 17:05 MA (Rec: 06/04/20 17:14 MA [email or web address]) Physical Therapy Assessment Goals HEP Impairment pt does not ahve HEP Television Maintenance Worker Goal (LTG) pt will be able to complete HEP safely and independently with no increase in shoulder pain LTG Duration 6 weeks pain Impairment pt has constant R shoulder pain 5/10 Short Term Goal (STG) pt will have no more than 4/10 R shoulder pain in a daily basis to improve his quality of life STG Duration 4weeks Penitentiary Goal (LTG) pt will have no more than 3/10 R shoulder pain in a daily basis to improve his quality of life LTG Duration 8 weeks ROM Impairment pt has approx 90 for R shoulder flexion and abduction Short Term Goal (STG) pt will improve his R shoulder AROM by at least 10 degrees with no increase in pain. STG Duration 4 weeks Penitentiary Goal (LTG) pt will improve his R shoulder AROM by at least 20 degrees with no increase in pain. LTG Duration 8 weeks quickdash Impairment pt scores 50 on quickdash Short Term Goal (STG) Pt will be able to score <45 on quickdash to improve his overall quality of life STG Duration 4 weeks Television Maintenance Worker Goal (LTG) Pt will be able to score <35 on quickdash to improve his overall quality of life LTG Duration 8 weeks Assessment Summary Assessment Pt has significant pain during STM to R pecs. Added self-STM with tennis ball at home to posterior, lateral, and anterior shd. Continued scap stabilization exercises with pt needing manual cues for full retraction without depression. Physical Therapy Plan Frequency and Duration Frequency of Treatment 2x/Week Duration of Treatment 8 weeks Plan of Care Start Date 05/22/20 Plan of Care End Date 07/21/20 Therapeutic Interventions Therapeutic Interventions Home Exercise Program,Joint Mobilizations,Manual Therapy, Neuromuscular Re-education, Patient/Caregiver Education, Self-Care/Home Management,Soft Tissue Mobilization,Taping, Therapeutic Activities, Therapeutic Exercises Modalities Biofeedback,Cold Pack/Ice Massage,Electric Stimulation, Hot Packs,Infrared Therapy, Traction- Mechanical, Ultrasound Next Visit Focus/Plan Next Note Type Treatment Note Next Visit Plan See how self-STM with tennis ball was at home Scapular stabilization check T spine movement. retraction, protraction shoulder shrug, shoulder punch hotpack at the end
--- NOTE | 2020-06-08 13:00 | PT.OTN ---
Current Diagnoses Pain in right shoulder (06/08/20) Physical Therapy Treatment Note PT-OP-A Visit Information Start: 05/22/20 12:50 Freq: Status: Active Protocol: Document 06/08/20 12:16 SP (Rec: 06/08/20 14:07 SP [email or web address]) Out-Patient Physical Therapy Visit Information Visit Information Visit Type Treatment Note Visit Start Time 12:16 Visit Stop Time 13:00 Total Visit Minutes 44 Visit Number 4/9 Number of HAT CLEANER Visits 2 PT-OP-B Current Condition Start: 05/22/20 12:50 Freq: Status: Active Protocol: Document 05/22/20 16:23 HH (Rec: 05/22/20 17:34 HH [email or web address]) Current Condition History of Current Condition Onset Date 2017 Current Complaints Chronic R shoulder pain, neck pain, unable to reach overhead . History of Current Condition Pt is a 60yo R-hand dominant male here for her chronic R shoulder pain, neck pain since 2018 after a fall who landed on his R side of the body. Pt c/o he has pain 5/10 located at inferior pole of R scapula, top of R shoulder and RTC region. Pt has not been able to lift his R arm pass 90 degrees ever since which significantly limits his daily activites such as house cleaning, reaching for cupboard and roxi/doff shirts. His pain is normally worse with increased in activity and inactivity/ heat pad tend to help. His recent X-ray = -ve findings with only OA at R shoulder joint. Pt also reports of new onset of jaw pain and headache on his R side started a month ago. Pt had steroid injection in Dec, 2018 and he felt amazing but only lasted for 2 months. He recently had X-ray which only shows OA at R shoulder joint. His PCP has also ordered EMG/ NCV to screen for radiculopathy and scapular winging long thoracic nerve injury, and MRI to evaluate for RTC tear, labral tear. Pt had a course of PT for 8 visits last year but it wasnt successful. Prior Treatments and Tests X-ray R shd 04/13/20 IMPRESSION: Osteoarthritis. No acute fracture. No osseous lesion. If symptoms and/or clinical suspicion for pathology persist, further assessment with repeat, or advanced imaging (e.g., CT, MRI, or bone scan) may be helpful for further assessment. x-ray 04/13/20 R scapula IMPRESSION: No acute fracture . No osseous lesion. If symptoms and/or clinical suspicion for pathology persist, further assessment with repeat, or advanced imaging (e.g., CT, MRI, or bone scan) may be helpful for further assessment . Personal Factors Other Personal Factors That May Effect depression Therapy/Recovery fibromyalgia arterial disease heart disease PT-OP-C Subjective Start: 05/22/20 12:50 Freq: Status: Active Protocol: Document 06/08/20 12:16 SP (Rec: 06/08/20 14:07 SP [id number]) OP-PT Subjective Patient Comments Patient Comments Pt stated still sore from manual work did under R shld. Compliant with HEP and no concerns. Is going to have an MRI here at next Tu per orthopedic Dr Corley from [facility]. PT-OP-F Manual Assessment Start: 05/22/20 12:50 Freq: Status: Active Protocol: Document 05/22/20 16:23 HH (Rec: 05/22/20 17:34 HH [email or web address]) Manual Assessments Soft Tissue Assessment Soft Tissue Mobility Assessment significant tenderness to pressure at levator scap, pecs , trap and RTC. pt shows significant muscle atrophy at RTC and spine of R scapula region PT-OP-K Range of Motion Start: 05/22/20 12:50 Freq: Status: Active Protocol: Document 05/22/20 16:23 HH (Rec: 05/22/20 17:34 HH [email or web address]) Cervical Spine Range of Motion Cervical Spine Active Degrees Testing Position Sitting Flexion 60 Extension 42 Rotation Left 63 Rotation Right 52 Lateral Flexion Left 35 Lateral Flexion Right 52 ROM Limitations Soft Tissue Tightness,Pain Shoulder Goniometric Range of Motion Shoulder Right Passive Shoulder ROM WFL No Testing Position Supine Flexion 135 Abduction 155 Comments pain at end range Right Active Shoulder ROM WFL No Testing Position Standing Flexion 92 Abduction 95 External Rotation at 90 degrees 85 Abduction Internal Rotation 70 Comments pain noted with all ROM Left Active Shoulder ROM WFL Yes Testing Position Standing Flexion 155 Abduction 135 External Rotation at 90 degrees 90 Abduction Internal Rotation 75 PT-OP-L Special Tests Start: 05/22/20 12:50 Freq: Status: Active Protocol: Document 05/22/20 16:23 HH (Rec: 05/22/20 17:34 HH [email or web address]) Special Tests Cervical Spine Special Tests Foraminal Compression Test Results +ve B R>L Comments radiating pain to R trap Spurling's Test Test Results +ve B R>L Comments radiating pain to R trap Shoulder Special Tests Yergason's Biceps Test Results pain at R shoulder Neer Impingement Test Results pain at R shoulder Lift-Off Rotator Cuff Test Results pain at R shoulder Comments weakness noted Peguero Alfred Impingement Test Results pain at R shoulder Drop Arm Rotator Cuff Test Results pain at R shoulder Comments weakness noted PT-OP-M Strength Start: 05/22/20 12:50 Freq: Status: Active Protocol: Document 05/22/20 16:23 HH (Rec: 05/22/20 17:34 HH [email or web address]) Shoulder Strength Shoulder Manual Muscle Testing Left Flexion 5 Normal Extension 5 Normal Abduction (C5) 5 Normal Adduction 5 Normal External Rotation 5 Normal Internal Rotation 5 Normal Right Flexion 3+ Fair+ Extension 4- Good- Abduction (C5) 3+ Fair+ Adduction 4- Good- External Rotation 3+ Fair+ Internal Rotation 3+ Fair+ Elbow/Forearm Strength Elbow and Forearm Manual Muscle Testing Right Flexion (C6) 4+ Good+ Extension (C7) 4+ Good+ Left Flexion (C6) 5 Normal Extension (C7) 5 Normal PT-OP-Q Treatments Start: 05/22/20 12:50 Freq: Status: Active Protocol: Document 06/08/20 12:16 SP (Rec: 06/08/20 14:07 SP [id number]) Therapeutic Exercises Supine Exercises shld ER Side right Resistance AROM Reps/Minutes x10 Comments cued humeral depression shoulder punch Supine Exercise Name HEP Side bilateral Reps/Minutes 8 x 2 Comments cued scap controlled eccentric return and humeral head inf glide awareness Sidelying Exercises Shoulder ER Sidelying Exercise Name shoulder ER with no weight- for HEP Side right Resistance AROM Reps/Minutes 20 Comments towel roll under elbow w/ humerus inf glide facilitation - pain free Standing Exercises shoulder shrugs Standing Exercise Name HEP Side bilateral Reps/Minutes 10 x2 Comments cued slow fluid muscular control scapular retraction Standing Exercise Name HEP Side bilateral Reps/Minutes 10 x2 Comments cued slow fluid muscular control Other Exercises Self STms Other Exercise Name self STMs- Levator scap, UT, Side right Equipment Used theracane, racquetball last tx - both good Comments MWM UT, lev scap, lower trap- head nod/turn/ scap mob Manual Therapy Treatment Soft Tissue Mobilization pecs Mobilization Type Sustained Pressure,Trigger Point Release Intensity/Depth Moderate Body Position Supine Comments significant tenderness at R side RTCs Mobilization Type Sustained Pressure,Trigger Point Release Intensity/Depth Moderate Body Position Sidelying Comments infraspinatus and teres minor Joint Mobilizations 1 Joint glenohumeral, right Direction posterior, inferior Grade II Body Position Supine Comments gentle slow pace PT-OP-R Modalities Start: 05/22/20 12:50 Freq: Status: Active Protocol: Document 06/04/20 17:05 MA (Rec: 06/04/20 17:14 MA [email or web address]) Hot Pack/Cold Pack Treatment Hot Pack Location R shd Patient Position Supine Treatment Duration (minutes) 15 Patient Tolerance Good PT-OP-T Assessment and Plan Start: 05/22/20 12:50 Freq: Status: Active Protocol: Document 06/08/20 12:16 SP (Rec: 06/08/20 14:07 SP [email or web address]) Physical Therapy Assessment Goals HEP Impairment pt does not have HEP Detention Goal (LTG) pt will be able to complete HEP safely and independently with no increase in shoulder pain LTG Duration 6 weeks pain Impairment pt has constant R shoulder pain 5/10 Short Term Goal (STG) pt will have no more than 4/10 R shoulder pain in a daily basis to improve his quality of life STG Duration 4weeks Detention Goal (LTG) pt will have no more than 3/10 R shoulder pain in a daily basis to improve his quality of life LTG Duration 8 weeks ROM Impairment pt has approx 90 for R shoulder flexion and abduction Short Term Goal (STG) pt will improve his R shoulder AROM by at least 10 degrees with no increase in pain. STG Duration 4 weeks Ekg Monitor Tech Goal (LTG) pt will improve his R shoulder AROM by at least 20 degrees with no increase in pain. LTG Duration 8 weeks quickdash Impairment pt scores 50 on quickdash Short Term Goal (STG) Pt will be able to score <45 on quickdash to improve his overall quality of life STG Duration 4 weeks Ekg Monitor Tech Goal (LTG) Pt will be able to score <35 on quickdash to improve his overall quality of life LTG Duration 8 weeks Assessment Summary Assessment Pt no tension in R pec, sensitive to pressure and time over distal RTC tendons. Reviewed ball roll at wall to post scap and initiated theracane MWM with good feedback. HEP review and initiated Shld ER AROM supine and side with cue for GH inferior glide awareness- pain free so added to HEP. Pt stated that feel PT is helping . Physical Therapy Plan Frequency and Duration Frequency of Treatment 2x/Week Duration of Treatment 8 weeks Plan of Care Start Date 05/22/20 Plan of Care End Date 07/21/20 Therapeutic Interventions Therapeutic Interventions Home Exercise Program,Joint Mobilizations,Manual Therapy, Neuromuscular Re-education, Patient/Caregiver Education, Self-Care/Home Management,Soft Tissue Mobilization,Taping, Therapeutic Activities, Therapeutic Exercises Modalities Biofeedback,Cold Pack/Ice Massage,Electric Stimulation, Hot Packs,Infrared Therapy, Traction- Mechanical, Ultrasound Next Visit Focus/Plan Next Note Type Treatment Note Next Visit Plan Assess manual & self STMs, added shld ER AROM w/ inf glide awareness. MRI next Tues . Next tx : Scapular stabilization check T spine movement. Review HEP: retraction, protraction shoulder shrug, shoulder punch hotpack at the end
--- NOTE | 2020-06-14 13:53 | PT.OTN ---
Current Diagnoses Pain in right shoulder (06/14/20) Physical Therapy Treatment Note PT-OP-A Visit Information Start: 05/22/20 12:50 Freq: Status: Active Protocol: Document 06/14/20 13:05 SP (Rec: 06/14/20 16:13 SP [id number]) Out-Patient Physical Therapy Visit Information Visit Information Visit Type Treatment Note Visit Start Time 13:05 Visit Stop Time 13:53 Total Visit Minutes 48 Visit Number 5/9 Number of MILL HELPER Visits 3 Evaluation Information Evaluation Date 05/22/20 Precautions Precautions Latex allergy PT-OP-B Current Condition Start: 05/22/20 12:50 Freq: Status: Active Protocol: Document 05/22/20 16:23 HH (Rec: 05/22/20 17:34 HH [email or web address]) Current Condition History of Current Condition Onset Date 2017 Current Complaints Chronic R shoulder pain, neck pain, unable to reach overhead . History of Current Condition Pt is a 60yo R-hand dominant male here for her chronic R shoulder pain, neck pain since 2018 after a fall who landed on his R side of the body. Pt c/o he has pain 5/10 located at inferior pole of R scapula, top of R shoulder and RTC region. Pt has not been able to lift his R arm pass 90 degrees ever since which significantly limits his daily activites such as house cleaning, reaching for cupboard and roxi/doff shirts. His pain is normally worse with increased in activity and inactivity/ heat pad tend to help. His recent X-ray = -ve findings with only OA at R shoulder joint. Pt also reports of new onset of jaw pain and headache on his R side started a month ago. Pt had steroid injection in Dec, 2018 and he felt amazing but only lasted for 2 months. He recently had X-ray which only shows OA at R shoulder joint. His PCP has also ordered EMG/ NCV to screen for radiculopathy and scapular winging long thoracic nerve injury, and MRI to evaluate for RTC tear, labral tear. Pt had a course of PT for 8 visits last year but it wasnt successful. Prior Treatments and Tests X-ray R shd 04/13/20 IMPRESSION: Osteoarthritis. No acute fracture. No osseous lesion. If symptoms and/or clinical suspicion for pathology persist, further assessment with repeat, or advanced imaging (e.g., CT, MRI, or bone scan) may be helpful for further assessment. x-ray 04/13/20 R scapula IMPRESSION: No acute fracture . No osseous lesion. If symptoms and/or clinical suspicion for pathology persist, further assessment with repeat, or advanced imaging (e.g., CT, MRI, or bone scan) may be helpful for further assessment . Personal Factors Other Personal Factors That May Effect depression Therapy/Recovery fibromyalgia arterial disease heart disease PT-OP-C Subjective Start: 05/22/20 12:50 Freq: Status: Active Protocol: Document 06/14/20 13:05 SP (Rec: 06/14/20 16:13 SP [id number]) OP-PT Subjective Patient Comments Patient Comments Pt stated complete the MRI for R shld and wasn't very pleasant, wish was wider and was told r shld moving to much when breathing. Awaiting results. PT-OP-F Manual Assessment Start: 05/22/20 12:50 Freq: Status: Active Protocol: Document 05/22/20 16:23 HH (Rec: 05/22/20 17:34 HH [email or web address]) Manual Assessments Soft Tissue Assessment Soft Tissue Mobility Assessment significant tenderness to pressure at levator scap, pecs , trap and RTC. pt shows significant muscle atrophy at RTC and spine of R scapula region PT-OP-K Range of Motion Start: 05/22/20 12:50 Freq: Status: Active Protocol: Document 05/22/20 16:23 HH (Rec: 05/22/20 17:34 HH [email or web address]) Cervical Spine Range of Motion Cervical Spine Active Degrees Testing Position Sitting Flexion 60 Extension 42 Rotation Left 63 Rotation Right 52 Lateral Flexion Left 35 Lateral Flexion Right 52 ROM Limitations Soft Tissue Tightness,Pain Shoulder Goniometric Range of Motion Shoulder Right Passive Shoulder ROM WFL No Testing Position Supine Flexion 135 Abduction 155 Comments pain at end range Right Active Shoulder ROM WFL No Testing Position Standing Flexion 92 Abduction 95 External Rotation at 90 degrees 85 Abduction Internal Rotation 70 Comments pain noted with all ROM Left Active Shoulder ROM WFL Yes Testing Position Standing Flexion 155 Abduction 135 External Rotation at 90 degrees 90 Abduction Internal Rotation 75 PT-OP-L Special Tests Start: 05/22/20 12:50 Freq: Status: Active Protocol: Document 05/22/20 16:23 HH (Rec: 05/22/20 17:34 HH [email or web address]) Special Tests Cervical Spine Special Tests Foraminal Compression Test Results +ve B R>L Comments radiating pain to R trap Spurling's Test Test Results +ve B R>L Comments radiating pain to R trap Shoulder Special Tests Yergason's Biceps Test Results pain at R shoulder Neer Impingement Test Results pain at R shoulder Lift-Off Rotator Cuff Test Results pain at R shoulder Comments weakness noted Peguero Alfred Impingement Test Results pain at R shoulder Drop Arm Rotator Cuff Test Results pain at R shoulder Comments weakness noted PT-OP-M Strength Start: 05/22/20 12:50 Freq: Status: Active Protocol: Document 05/22/20 16:23 HH (Rec: 05/22/20 17:34 HH [email or web address]) Shoulder Strength Shoulder Manual Muscle Testing Left Flexion 5 Normal Extension 5 Normal Abduction (C5) 5 Normal Adduction 5 Normal External Rotation 5 Normal Internal Rotation 5 Normal Right Flexion 3+ Fair+ Extension 4- Good- Abduction (C5) 3+ Fair+ Adduction 4- Good- External Rotation 3+ Fair+ Internal Rotation 3+ Fair+ Elbow/Forearm Strength Elbow and Forearm Manual Muscle Testing Right Flexion (C6) 4+ Good+ Extension (C7) 4+ Good+ Left Flexion (C6) 5 Normal Extension (C7) 5 Normal PT-OP-Q Treatments Start: 05/22/20 12:50 Freq: Status: Active Protocol: Document 06/14/20 13:05 SP (Rec: 06/14/20 16:13 SP [id number]) Therapeutic Exercises Supine Exercises TS ext over towel roll Equipment Used towel roll Reps/Minutes 10 sec hold x 3 areas of TS Comments approx T7 seemed tolerable, superior/ inferior areas were to uncomfortable shld ER Side right Resistance AROM Reps/Minutes x10 Comments cued humeral depression- pain free shoulder punch Supine Exercise Name Reviewed Side bilateral Reps/Minutes x4 Comments irritated so stopped Sidelying Exercises Shoulder ER Sidelying Exercise Name shoulder ER Side right Resistance AROM Reps/Minutes 20 Comments towel roll under elbow w/ humerus inf glide facilitation - pain free Sitting Exercises GH Pulleys Sitting Exercise Name PROM Side right Reps/Minutes limited to 80 deg flexion w/ gentle contact scapular upward rotation fac Comments stopped after few reps due to increased R posterior AC joint Standing Exercises shoulder shrugs Standing Exercise Name HEP review Side bilateral Reps/Minutes 10 x2 Comments cued slow fluid muscular control- pain free scapular retraction Standing Exercise Name HEP review- little irritation ant R shld Side bilateral Reps/Minutes x10 Comments cued SLOW con/ ecc fluid muscular control Manual Therapy Treatment Soft Tissue Mobilization pecs Mobilization Type Sustained Pressure,Trigger Point Release Intensity/Depth Moderate Body Position Supine Comments significant tenderness at R side RTCs Mobilization Type Sustained Pressure,Trigger Point Release Intensity/Depth Moderate Body Position Sidelying Comments infraspinatus and teres minor 1 Body Location UT, Interscap, Infraspinatus Mobilization Type Myofascial Release,Rolling, Strumming,Sustained Pressure, Trigger Point Release Intensity/Depth Moderate Body Position Supine Comments R shoulder Manual Techniques PNF scapulothoracic R shld Type L sidelying Body Location R Body Position Sidelying Reps/Duration 6 min Comments very challenged with cuing AAROM facilitation with low trap activation Self-Care/Home Management Treatment Education Patient Education Home Exercise Program Other Education Increased time spent on manual feedback for scap stabilization sidelying/seated /stand during all activities for decreased pain, no significant improvement today. PT-OP-R Modalities Start: 05/22/20 12:50 Freq: Status: Active Protocol: Document 06/14/20 13:05 SP (Rec: 06/14/20 16:13 SP [id number]) Hot Pack/Cold Pack Treatment Hot Pack Location R shd Patient Position Supine Treatment Duration (minutes) 10 Patient Tolerance Good PT-OP-T Assessment and Plan Start: 05/22/20 12:50 Freq: Status: Active Protocol: Document 06/14/20 13:05 SP (Rec: 06/14/20 16:13 SP [id number]) Physical Therapy Assessment Goals HEP Impairment pt does not have HEP Long-Term Goal (LTG) pt will be able to complete HEP safely and independently with no increase in shoulder pain 06/14/20: progressing, requires cuing for slow pace con/ eccentric muscular control scap stab to allow decreased popping pain. LTG Duration 6 weeks pain Impairment pt has constant R shoulder pain 5/10 Short Term Goal (STG) pt will have no more than 4/10 R shoulder pain in a daily basis to improve his quality of life STG Duration 4weeks Hair Spinner Goal (LTG) pt will have no more than 3/10 R shoulder pain in a daily basis to improve his quality of life LTG Duration 8 weeks ROM Impairment pt has approx 90 for R shoulder flexion and abduction Short Term Goal (STG) pt will improve his R shoulder AROM by at least 10 degrees with no increase in pain. STG Duration 4 weeks Long-Term Goal (LTG) pt will improve his R shoulder AROM by at least 20 degrees with no increase in pain. LTG Duration 8 weeks quickdash Impairment pt scores 50 on quickdash Short Term Goal (STG) Pt will be able to score <45 on quickdash to improve his overall quality of life STG Duration 4 weeks Hair Spinner Goal (LTG) Pt will be able to score <35 on quickdash to improve his overall quality of life LTG Duration 8 weeks Assessment Summary Assessment Pt reported increased irritation over RTC and superior angle of scap during HEP review, manual gentle STMs and PNF scapular facilitation or self tripp PROM did not provide significant relief of discomfort. Ended with MHP no significant reduction in discomfort today. Physical Therapy Plan Frequency and Duration Frequency of Treatment 2x/Week Duration of Treatment 8 weeks Plan of Care Start Date 05/22/20 Plan of Care End Date 07/21/20 Therapeutic Interventions Therapeutic Interventions Home Exercise Program,Joint Mobilizations,Manual Therapy, Neuromuscular Re-education, Patient/Caregiver Education, Self-Care/Home Management,Soft Tissue Mobilization,Taping, Therapeutic Activities, Therapeutic Exercises Modalities Biofeedback,Cold Pack/Ice Massage,Electric Stimulation, Hot Packs,Infrared Therapy, Traction- Mechanical, Ultrasound Next Visit Focus/Plan Next Note Type Treatment Note Next Visit Plan Assess response to TS ext/ rotation and manual STMs/ PNF and HEP review last tx, did hear back from MRI results. Next tx : Scapular stabilization recheck T spine movement. Review HEP: retraction, protraction shoulder shrug, shoulder punch hotpack at the end
--- NOTE | 2020-06-19 13:45 | PT.OTN ---
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 History of Current Condition Pt is a 60yo R-hand dominant male here for her chronic R shoulder pain, neck pain since 2018 after a fall who landed on his R side of the body. Pt c/o he has pain 5/10 located at inferior pole of R scapula, top of R shoulder and RTC region. Pt has not been able to lift his R arm pass 90 degrees ever since which significantly limits his daily activites such as house cleaning, reaching for cupboard and roxi/doff shirts. His pain is normally worse with increased in activity and inactivity/ heat pad tend to help. His recent X-ray = -ve findings with only OA at R shoulder joint. Pt also reports of new onset of jaw pain and headache on his R side started a month ago. Pt had steroid injection in Dec, 2018 and he felt amazing but only lasted for 2 months. He recently had X-ray which only shows OA at R shoulder joint. His PCP has also ordered EMG/ NCV to screen for radiculopathy and scapular winging long thoracic nerve injury, and MRI to evaluate for RTC tear, labral tear. Pt had a course of PT for 8 visits last year but it wasnt successful. Prior Treatments and Tests X-ray R shd 04/13/20 IMPRESSION: Osteoarthritis. No acute fracture. No osseous lesion. If symptoms and/or clinical suspicion for pathology persist, further assessment with repeat, or advanced imaging (e.g., CT, MRI, or bone scan) may be helpful for further assessment. x-ray 04/13/20 R scapula IMPRESSION: No acute fracture . No osseous lesion. If symptoms and/or clinical suspicion for pathology persist, further assessment with repeat, or advanced imaging (e.g., CT, MRI, or bone scan) may be helpful for further assessment . Personal Factors Other Personal Factors That May Effect depression Therapy/Recovery fibromyalgia arterial disease heart disease PT-OP-C Subjective Start: 05/22/20 12:50 Freq: Status: Active Protocol: Document 06/19/20 13:03 SP (Rec: 06/19/20 15:53 SP [id number]) OP-PT Subjective Patient Comments Patient Comments Pt stated has been having increased 6-7/10 over posterior superior/ inferior angle and medial border R scap pain post PT treatments, brought some CBD ointment and wanting assistance to apply today to help and take a look at exercises doing in PT to help give relief. 5/10 pain upon arrival to PT today. Pt stated continues to have the same pain down R lateral arm to forearm and anterior to palmar surface of hand at carpals and scheduled for an EMG beginning of July referred by Dr Corley for further assessment. I have an appt soon with orthopedic to review MRI results and next course of action. PT-OP-F Manual Assessment Start: 05/22/20 12:50 Freq: Status: Active Protocol: Document 05/22/20 16:23 HH (Rec: 05/22/20 17:34 HH [email or web address]) Manual Assessments Soft Tissue Assessment Soft Tissue Mobility Assessment significant tenderness to pressure at levator scap, pecs , trap and RTC. pt shows significant muscle atrophy at RTC and spine of R scapula region PT-OP-K Range of Motion Start: 05/22/20 12:50 Freq: Status: Active Protocol: Document 05/22/20 16:23 HH (Rec: 05/22/20 17:34 HH [email or web address]) Cervical Spine Range of Motion Cervical Spine Active Degrees Testing Position Sitting Flexion 60 Extension 42 Rotation Left 63 Rotation Right 52 Lateral Flexion Left 35 Lateral Flexion Right 52 ROM Limitations Soft Tissue Tightness,Pain Shoulder Goniometric Range of Motion Shoulder Right Passive Shoulder ROM WFL No Testing Position Supine Flexion 135 Abduction 155 Comments pain at end range Right Active Shoulder ROM WFL No Testing Position Standing Flexion 92 Abduction 95 External Rotation at 90 degrees 85 Abduction Internal Rotation 70 Comments pain noted with all ROM Left Active Shoulder ROM WFL Yes Testing Position Standing Flexion 155 Abduction 135 External Rotation at 90 degrees 90 Abduction Internal Rotation 75 PT-OP-L Special Tests Start: 05/22/20 12:50 Freq: Status: Active Protocol: Document 05/22/20 16:23 HH (Rec: 05/22/20 17:34 HH [email or web address]) Special Tests Cervical Spine Special Tests Foraminal Compression Test Results +ve B R>L Comments radiating pain to R trap Spurling's Test Test Results +ve B R>L Comments radiating pain to R trap Shoulder Special Tests Yergason's Biceps Test Results pain at R shoulder Neer Impingement Test Results pain at R shoulder Lift-Off Rotator Cuff Test Results pain at R shoulder Comments weakness noted Peguero Alfred Impingement Test Results pain at R shoulder Drop Arm Rotator Cuff Test Results pain at R shoulder Comments weakness noted PT-OP-M Strength Start: 05/22/20 12:50 Freq: Status: Active Protocol: Document 05/22/20 16:23 HH (Rec: 05/22/20 17:34 [email or web address]) Shoulder Strength Shoulder Manual Muscle Testing Left Flexion 5 Normal Extension 5 Normal Abduction (C5) 5 Normal Adduction 5 Normal External Rotation 5 Normal Internal Rotation 5 Normal Right Flexion 3+ Fair+ Extension 4- Good- Abduction (C5) 3+ Fair+ Adduction 4- Good- External Rotation 3+ Fair+ Internal Rotation 3+ Fair+ Elbow/Forearm Strength Elbow and Forearm Manual Muscle Testing Right Flexion (C6) 4+ Good+ Extension (C7) 4+ Good+ Left Flexion (C6) 5 Normal Extension (C7) 5 Normal PT-OP-Q Treatments Start: 05/22/20 12:50 Freq: Status: Active Protocol: Document 06/19/20 13:03 SP (Rec: 06/19/20 15:53 SP [id number]) Therapeutic Exercises Supine Exercises shld ER Supine Exercise Name at 45 deg abd Side right Resistance AROM Reps/Minutes x8 Comments cued slow pacing control, painfree range chin tucks Equipment Used towel roll behind neck, head on table Reps/Minutes 8 x 2, 3 sec hold Comments cued slow fluid movement shoulder punch Supine Exercise Name to painful- stopped Sidelying Exercises Retraction Sidelying Exercise Name R shd retraction Side right Comments mod cued SLOW fluid ROM- pain free tolerated Shoulder ER Sidelying Exercise Name shoulder ER- towel roll under elbow Side right Resistance AROM Reps/Minutes 20 Comments towel roll under elbow w/ humerus inf glide facilitation - slow pain free Sitting Exercises median glide Sitting Exercise Name no pain Side right Reps/Minutes x5 Comments cued head lateral side bend with hand. Manual Therapy Treatment Soft Tissue Mobilization RTCs Body Location infraspinatus, UT, RTC tendons , serratus anterior, lev scap Mobilization Type Myofascial Release Intensity/Depth Superficial Body Position Prone Comments gentle MFR to post scap mms( utilized vinyl gloves), requested feedback for tolerance. PT-OP-R Modalities Start: 05/22/20 12:50 Freq: Status: Active Protocol: Document 06/14/20 13:05 SP (Rec: 06/14/20 16:13 SP [id number]) Hot Pack/Cold Pack Treatment Hot Pack Location R shd Patient Position Supine Treatment Duration (minutes) 10 Patient Tolerance Good PT-OP-T Assessment and Plan Start: 05/22/20 12:50 Freq: Status: Active Protocol: Document 06/19/20 13:03 SP (Rec: 06/19/20 15:53 SP [id number]) Physical Therapy Assessment Goals HEP Impairment pt does not have HEP Night Order Selector Goal (LTG) pt will be able to complete HEP safely and independently with no increase in shoulder pain 06/19/20: requires cuing for slow pace con/eccentric muscular control ROM within pain free range with awareness of fluid scap mobility to allow decreased popping pain. LTG Duration 6 weeks pain Impairment pt has constant R shoulder pain 5/10 Short Term Goal (STG) pt will have no more than 4/10 R shoulder pain in a daily basis to improve his quality of life 06/19/20: pt continues to have high level pain6-7/10, carrying groceries mostlyw with RUE but does at times need use LLE to assist. STG Duration 4weeks Fpc Goal (LTG) pt will have no more than 3/10 R shoulder pain in a daily basis to improve his quality of life LTG Duration 8 weeks ROM Impairment pt has approx 90 for R shoulder flexion and abduction Short Term Goal (STG) pt will improve his R shoulder AROM by at least 10 degrees with no increase in pain. 4/6/21: pt reports no increasd in pain up to 90 deg FF in supine. STG Duration 4 weeks Fpc Goal (LTG) pt will improve his R shoulder AROM by at least 20 degrees with no increase in pain. LTG Duration 8 weeks quickdash Impairment pt scores 50 on quickdash Short Term Goal (STG) Pt will be able to score <45 on quickdash to improve his overall quality of life STG Duration 4 weeks Fpc Goal (LTG) Pt will be able to score <35 on quickdash to improve his overall quality of life LTG Duration 8 weeks Progress Towards Goals Progress Towards Goals Slow Progress due to Activity Tolerance,Slow Progress - Other Progress Comments Pt has had slow progression due to limited tolerance in ROM and pain responses with gentle manual STMs and close chain exercises. Assessment Summary Assessment Tx focused on gentle STMs to posterior scap for pain relief , applied per pt request use of his lotion w /CBD ointment has used in past with no adverse reactions. ROLL OVER PRESS OPERATOR discussed strategies on self application use of back net programmer analyst/ kitchen spatula w/ wash cloth covering. ROLL OVER PRESS OPERATOR reviewed HEP that did not cause increased pain and discussed move in painfree range with awareness of SLOW fluid movements con/eccentric with mod cuing. Pt stated tx was more helpful today but still had increased pain 6-7/ 10. Reviewed with pt use of modalities for assist if needed could be helpful. Physical Therapy Plan Frequency and Duration Frequency of Treatment 2x/Week Duration of Treatment 8 weeks Plan of Care Start Date 05/22/20 Plan of Care End Date 07/21/20 Therapeutic Interventions Therapeutic Interventions Home Exercise Program,Joint Mobilizations,Manual Therapy, Neuromuscular Re-education, Patient/Caregiver Education, Self-Care/Home Management,Soft Tissue Mobilization,Taping, Therapeutic Activities, Therapeutic Exercises Modalities Biofeedback,Cold Pack/Ice Massage,Electric Stimulation, Hot Packs,Infrared Therapy, Traction- Mechanical, Ultrasound Next Visit Focus/Plan Next Note Type Treatment Note Next Visit Plan Assess response to gentle manual w/ personal lotion and HEP review painfree slow movement range during last tx. Pt hasn't had goood response to TS mobility. Next tx : Continue Scapular stabilization recheck T spine movement if tolerated. Initial HEP: retraction, protraction (not tolerated) shoulder shrug (not tolerated) , shoulder punch (not tolerated) hotpack at the end
--- NOTE | 2020-06-19 13:45 | PT.OTN ---
Current Diagnoses Pain in right shoulder (06/19/20) Physical Therapy Treatment Note PT-OP-A Visit Information Start: 05/22/20 12:50 Freq: Status: Active Protocol: Document 06/19/20 13:03 SP (Rec: 06/19/20 15:53 SP [id number]) Out-Patient Physical Therapy Visit Information Visit Information Visit Type Treatment Note Visit Start Time 13:03 Visit Stop Time 13:45 Total Visit Minutes 42 Visit Number 6/9 Number of MBA INTERNSHIP Visits 4 Evaluation Information Evaluation Date 05/22/20 Precautions Precautions Latex allergy PT-OP-B Current Condition Start: 05/22/20 12:50 Freq: Status: Active Protocol: Document 05/22/20 16:23 HH (Rec: 05/22/20 17:34 HH [email or web address]) Current Condition History of Current Condition Onset Date 2017 Current Complaints Chronic R shoulder pain, neck pain, unable to reach overhead . History of Current Condition Pt is a 60yo R-hand dominant male here for her chronic R shoulder pain, neck pain since 2018 after a fall who landed on his R side of the body. Pt c/o he has pain 5/10 located at inferior pole of R scapula, top of R shoulder and RTC region. Pt has not been able to lift his R arm pass 90 degrees ever since which significantly limits his daily activites such as house cleaning, reaching for cupboard and roxi/doff shirts. His pain is normally worse with increased in activity and inactivity/ heat pad tend to help. His recent X-ray = -ve findings with only OA at R shoulder joint. Pt also reports of new onset of jaw pain and headache on his R side started a month ago. Pt had steroid injection in Dec, 2018 and he felt amazing but only lasted for 2 months. He recently had X-ray which only shows OA at R shoulder joint. His PCP has also ordered EMG/ NCV to screen for radiculopathy and scapular winging long thoracic nerve injury, and MRI to evaluate for RTC tear, labral tear. Pt had a course of PT for 8 visits last year but it wasnt successful. Prior Treatments and Tests X-ray R shd 04/13/20 IMPRESSION: Osteoarthritis. No acute fracture. No osseous lesion. If symptoms and/or clinical suspicion for pathology persist, further assessment with repeat, or advanced imaging (e.g., CT, MRI, or bone scan) may be helpful for further assessment. x-ray 04/13/20 R scapula IMPRESSION: No acute fracture . No osseous lesion. If symptoms and/or clinical suspicion for pathology persist, further assessment with repeat, or advanced imaging (e.g., CT, MRI, or bone scan) may be helpful for further assessment . Personal Factors Other Personal Factors That May Effect depression Therapy/Recovery fibromyalgia arterial disease heart disease PT-OP-C Subjective Start: 05/22/20 12:50 Freq: Status: Active Protocol: Document 06/19/20 13:03 SP (Rec: 06/19/20 15:53 SP [id number]) OP-PT Subjective Patient Comments Patient Comments Pt stated has been having increased 6-7/10 over posterior superior/ inferior angle and medial border R scap pain post PT treatments, brought some CBD ointment and wanting assistance to apply today to help and take a look at exercises doing in PT to help give relief. 5/10 pain upon arrival to PT today. Pt stated continues to have the same pain down R lateral arm to forearm and anterior to palmar surface of hand at carpals and scheduled for an EMG beginning of July referred by Dr Corley for further assessment. I have an appt soon with orthopedic to review MRI results and next course of action. PT-OP-F Manual Assessment Start: 05/22/20 12:50 Freq: Status: Active Protocol: Document 05/22/20 16:23 HH (Rec: 05/22/20 17:34 HH [email or web address]) Manual Assessments Soft Tissue Assessment Soft Tissue Mobility Assessment significant tenderness to pressure at levator scap, pecs , trap and RTC. pt shows significant muscle atrophy at RTC and spine of R scapula region PT-OP-K Range of Motion Start: 05/22/20 12:50 Freq: Status: Active Protocol: Document 05/22/20 16:23 HH (Rec: 05/22/20 17:34 HH [email or web address]) Cervical Spine Range of Motion Cervical Spine Active Degrees Testing Position Sitting Flexion 60 Extension 42 Rotation Left 63 Rotation Right 52 Lateral Flexion Left 35 Lateral Flexion Right 52 ROM Limitations Soft Tissue Tightness,Pain Shoulder Goniometric Range of Motion Shoulder Right Passive Shoulder ROM WFL No Testing Position Supine Flexion 135 Abduction 155 Comments pain at end range Right Active Shoulder ROM WFL No Testing Position Standing Flexion 92 Abduction 95 External Rotation at 90 degrees 85 Abduction Internal Rotation 70 Comments pain noted with all ROM Left Active Shoulder ROM WFL Yes Testing Position Standing Flexion 155 Abduction 135 External Rotation at 90 degrees 90 Abduction Internal Rotation 75 PT-OP-L Special Tests Start: 05/22/20 12:50 Freq: Status: Active Protocol: Document 05/22/20 16:23 HH (Rec: 05/22/20 17:34 HH [email or web address]) Special Tests Cervical Spine Special Tests Foraminal Compression Test Results +ve B R>L Comments radiating pain to R trap Spurling's Test Test Results +ve B R>L Comments radiating pain to R trap Shoulder Special Tests Yergason's Biceps Test Results pain at R shoulder Neer Impingement Test Results pain at R shoulder Lift-Off Rotator Cuff Test Results pain at R shoulder Comments weakness noted Peguero Alfred Impingement Test Results pain at R shoulder Drop Arm Rotator Cuff Test Results pain at R shoulder Comments weakness noted PT-OP-M Strength Start: 05/22/20 12:50 Freq: Status: Active Protocol: Document 05/22/20 16:23 HH (Rec: 05/22/20 17:34 [email or web address]) Shoulder Strength Shoulder Manual Muscle Testing Left Flexion 5 Normal Extension 5 Normal Abduction (C5) 5 Normal Adduction 5 Normal External Rotation 5 Normal Internal Rotation 5 Normal Right Flexion 3+ Fair+ Extension 4- Good- Abduction (C5) 3+ Fair+ Adduction 4- Good- External Rotation 3+ Fair+ Internal Rotation 3+ Fair+ Elbow/Forearm Strength Elbow and Forearm Manual Muscle Testing Right Flexion (C6) 4+ Good+ Extension (C7) 4+ Good+ Left Flexion (C6) 5 Normal Extension (C7) 5 Normal PT-OP-Q Treatments Start: 05/22/20 12:50 Freq: Status: Active Protocol: Document 06/19/20 13:03 SP (Rec: 06/19/20 15:53 SP [id number]) Therapeutic Exercises Supine Exercises shld ER Supine Exercise Name at 45 deg abd Side right Resistance AROM Reps/Minutes x8 Comments cued slow pacing control, painfree range chin tucks Equipment Used towel roll behind neck, head on table Reps/Minutes 8 x 2, 3 sec hold Comments cued slow fluid movement shoulder punch Supine Exercise Name to painful- stopped Sidelying Exercises Retraction Sidelying Exercise Name R shd retraction Side right Comments mod cued SLOW fluid ROM- pain free tolerated Shoulder ER Sidelying Exercise Name shoulder ER- towel roll under elbow Side right Resistance AROM Reps/Minutes 20 Comments towel roll under elbow w/ humerus inf glide facilitation - slow pain free Sitting Exercises median glide Sitting Exercise Name no pain Side right Reps/Minutes x5 Comments cued head lateral side bend with hand. Manual Therapy Treatment Soft Tissue Mobilization RTCs Body Location infraspinatus, UT, RTC tendons , serratus anterior, lev scap Mobilization Type Myofascial Release Intensity/Depth Superficial Body Position Prone Comments gentle MFR to post scap mms( utilized vinyl gloves), requested feedback for tolerance. PT-OP-R Modalities Start: 05/22/20 12:50 Freq: Status: Active Protocol: Document 06/14/20 13:05 SP (Rec: 06/14/20 16:13 SP [id number]) Hot Pack/Cold Pack Treatment Hot Pack Location R shd Patient Position Supine Treatment Duration (minutes) 10 Patient Tolerance Good PT-OP-T Assessment and Plan Start: 05/22/20 12:50 Freq: Status: Active Protocol: Document 06/19/20 13:03 SP (Rec: 06/19/20 15:53 SP [id number]) Physical Therapy Assessment Goals HEP Impairment pt does not have HEP Forest Fire Prevention Specialist Goal (LTG) pt will be able to complete HEP safely and independently with no increase in shoulder pain 06/19/20: requires cuing for slow pace con/eccentric muscular control ROM within pain free range with awareness of fluid scap mobility to allow decreased popping pain. LTG Duration 6 weeks pain Impairment pt has constant R shoulder pain 5/10 Short Term Goal (STG) pt will have no more than 4/10 R shoulder pain in a daily basis to improve his quality of life 06/19/20: pt continues to have high level pain6-7/10, carrying groceries mostlyw with RUE but does at times need use LLE to assist. STG Duration 4weeks Usp Goal (LTG) pt will have no more than 3/10 R shoulder pain in a daily basis to improve his quality of life LTG Duration 8 weeks ROM Impairment pt has approx 90 for R shoulder flexion and abduction Short Term Goal (STG) pt will improve his R shoulder AROM by at least 10 degrees with no increase in pain. 4/6/21: pt reports no increasd in pain up to 90 deg FF in supine. STG Duration 4 weeks Usp Goal (LTG) pt will improve his R shoulder AROM by at least 20 degrees with no increase in pain. LTG Duration 8 weeks quickdash Impairment pt scores 50 on quickdash Short Term Goal (STG) Pt will be able to score <45 on quickdash to improve his overall quality of life STG Duration 4 weeks Usp Goal (LTG) Pt will be able to score <35 on quickdash to improve his overall quality of life LTG Duration 8 weeks Assessment Summary Assessment Tx focused on gentle STMs to posterior scap for pain relief , applied per pt request use of his lotion w /CBD ointment has used in past with no adverse reactions. [employer] discussed strategies on self application use of back quality compliance coordinator/ kitchen spatula w/ wash cloth covering. [employer] reviewed HEP that did not cause increased pain and discussed move in painfree range with awareness of SLOW fluid movements con/eccentric with mod cuing. Pt stated tx was more helpful today but still had increased pain 6-/ 10. Reviewed with pt use of modalities for assist if needed could be helpful. Physical Therapy Plan Frequency and Duration Frequency of Treatment 2x/Week Duration of Treatment 8 weeks Plan of Care Start Date 05/22/20 Plan of Care End Date 07/21/20 Therapeutic Interventions Therapeutic Interventions Home Exercise Program,Joint Mobilizations,Manual Therapy, Neuromuscular Re-education, Patient/Caregiver Education, Self-Care/Home Management,Soft Tissue Mobilization,Taping, Therapeutic Activities, Therapeutic Exercises Modalities Biofeedback,Cold Pack/Ice Massage,Electric Stimulation, Hot Packs,Infrared Therapy, Traction- Mechanical, Ultrasound Next Visit Focus/Plan Next Note Type Treatment Note Next Visit Plan Assess response to gentle manual w/ personal lotion and HEP review painfree slow movement range during last tx. Pt hasn't had goood response to TS mobility. Next tx : Continue Scapular stabilization recheck T spine movement if tolerated. Initial HEP: retraction, protraction (not tolerated) shoulder shrug (not tolerated) , shoulder punch (not tolerated) hotpack at the end
--- NOTE | 2020-06-25 14:24 | PT.OTN ---
Current Diagnoses Pain in right shoulder (06/25/20) Physical Therapy Treatment Note PT-OP-A Visit Information Start: 05/22/20 12:50 Freq: Status: Active Protocol: Document 06/25/20 13:02 HH (Rec: 06/25/20 14:23 HH [id number]) Out-Patient Physical Therapy Visit Information Visit Information Visit Type Progress Note Visit Note 1. Supraspinatus and infraspinatus tendinopathy with superimposed low-grade partial-thickness tearing. No full-thickness rotator cuff tear. 2. Acromioclavicular joint osteoarthritis. 3. Glenoid labral tearing. Visit Start Time 13:01 Visit Stop Time 13:51 Total Visit Minutes 50 Visit Number 7/9 Number of WARP HANGER Visits 0 PT-OP-B Current Condition Start: 05/22/20 12:50 Freq: Status: Active Protocol: Document 05/22/20 16:23 HH (Rec: 05/22/20 17:34 HH [email or web address]) Current Condition History of Current Condition Onset Date 2017 Current Complaints Chronic R shoulder pain, neck pain, unable to reach overhead . History of Current Condition Pt is a 60yo R-hand dominant male here for her chronic R shoulder pain, neck pain since 2018 after a fall who landed on his R side of the body. Pt c/o he has pain 5/10 located at inferior pole of R scapula, top of R shoulder and RTC region. Pt has not been able to lift his R arm pass 90 degrees ever since which significantly limits his daily activites such as house cleaning, reaching for cupboard and roxi/doff shirts. His pain is normally worse with increased in activity and inactivity/ heat pad tend to help. His recent X-ray = -ve findings with only OA at R shoulder joint. Pt also reports of new onset of jaw pain and headache on his R side started a month ago. Pt had steroid injection in Dec, 2018 and he felt amazing but only lasted for 2 months. He recently had X-ray which only shows OA at R shoulder joint. His PCP has also ordered EMG/ NCV to screen for radiculopathy and scapular winging long thoracic nerve injury, and MRI to evaluate for RTC tear, labral tear. Pt had a course of PT for 8 visits last year but it wasnt successful. Prior Treatments and Tests X-ray R shd 04/13/20 IMPRESSION: Osteoarthritis. No acute fracture. No osseous lesion. If symptoms and/or clinical suspicion for pathology persist, further assessment with repeat, or advanced imaging (e.g., CT, MRI, or bone scan) may be helpful for further assessment. x-ray 04/13/20 R scapula IMPRESSION: No acute fracture . No osseous lesion. If symptoms and/or clinical suspicion for pathology persist, further assessment with repeat, or advanced imaging (e.g., CT, MRI, or bone scan) may be helpful for further assessment . Personal Factors Other Personal Factors That May Effect depression Therapy/Recovery fibromyalgia arterial disease heart disease PT-OP-C Subjective Start: 05/22/20 12:50 Freq: Status: Active Protocol: Document 06/25/20 13:02 HH (Rec: 06/25/20 14:23 HH [id number]) OP-PT Subjective Patient Comments Patient Comments I am pretty much the same and the massage + CBD oil from last session seem to help but not sure at the same time. Patient Reported Progress Same PT-OP-F Manual Assessment Start: 05/22/20 12:50 Freq: Status: Active Protocol: Document 05/22/20 16:23 HH (Rec: 05/22/20 17:34 [email or web address]) Manual Assessments Soft Tissue Assessment Soft Tissue Mobility Assessment significant tenderness to pressure at levator scap, pecs , trap and RTC. pt shows significant muscle atrophy at RTC and spine of R scapula region PT-OP-K Range of Motion Start: 05/22/20 12:50 Freq: Status: Active Protocol: Document 05/22/20 16:23 HH (Rec: 05/22/20 17:34 [email or web address]) Cervical Spine Range of Motion Cervical Spine Active Degrees Testing Position Sitting Flexion 60 Extension 42 Rotation Left 63 Rotation Right 52 Lateral Flexion Left 35 Lateral Flexion Right 52 ROM Limitations Soft Tissue Tightness,Pain Shoulder Goniometric Range of Motion Shoulder Right Passive Shoulder ROM WFL No Testing Position Supine Flexion 135 Abduction 155 Comments pain at end range Right Active Shoulder ROM WFL No Testing Position Standing Flexion 92 Abduction 95 External Rotation at 90 degrees 85 Abduction Internal Rotation 70 Comments pain noted with all ROM Left Active Shoulder ROM WFL Yes Testing Position Standing Flexion 155 Abduction 135 External Rotation at 90 degrees 90 Abduction Internal Rotation 75 PT-OP-L Special Tests Start: 05/22/20 12:50 Freq: Status: Active Protocol: Document 05/22/20 16:23 (Rec: 05/22/20 17:34 [email or web address]) Special Tests Cervical Spine Special Tests Foraminal Compression Test Results +ve B R>L Comments radiating pain to R trap Spurling's Test Test Results +ve B R>L Comments radiating pain to R trap Shoulder Special Tests Yergason's Biceps Test Results pain at R shoulder Neer Impingement Test Results pain at R shoulder Lift-Off Rotator Cuff Test Results pain at R shoulder Comments weakness noted Peguero Alfred Impingement Test Results pain at R shoulder Drop Arm Rotator Cuff Test Results pain at R shoulder Comments weakness noted PT-OP-M Strength Start: 05/22/20 12:50 Freq: Status: Active Protocol: Document 05/22/20 16:23 (Rec: 05/22/20 17:34 [email or web address]) Shoulder Strength Shoulder Manual Muscle Testing Left Flexion 5 Normal Extension 5 Normal Abduction (C5) 5 Normal Adduction 5 Normal External Rotation 5 Normal Internal Rotation 5 Normal Right Flexion 3+ Fair+ Extension 4- Good- Abduction (C5) 3+ Fair+ Adduction 4- Good- External Rotation 3+ Fair+ Internal Rotation 3+ Fair+ Elbow/Forearm Strength Elbow and Forearm Manual Muscle Testing Right Flexion (C6) 4+ Good+ Extension (C7) 4+ Good+ Left Flexion (C6) 5 Normal Extension (C7) 5 Normal PT-OP-Q Treatments Start: 05/22/20 12:50 Freq: Status: Active Protocol: Document 06/25/20 13:02 (Rec: 06/25/20 14:23 [id number]) Therapeutic Exercises Supine Exercises shoulder pinch 2 Side bilateral Reps/Minutes 10 x2 Comments no discomfort noted. shld ER Supine Exercise Name at 45 deg abd Side right Resistance AROM Reps/Minutes x8 Comments cued slow pacing control, painfree range Sidelying Exercises Retraction Sidelying Exercise Name R shd retraction Side right Comments mod cued SLOW fluid ROM- pain free tolerated Shoulder ER Sidelying Exercise Name shoulder ER- towel roll under elbow Side right Resistance AROM Reps/Minutes 20 Comments towel roll under elbow w/ humerus inf glide facilitation - slow pain free Standing Exercises Shoulder flexion Equipment Used PVC Reps/Minutes 8 x2 Comments pain at end range occasionally Manual Therapy Treatment Soft Tissue Mobilization pecs Mobilization Type Sustained Pressure,Trigger Point Release Intensity/Depth Moderate Body Position Supine Comments significant tenderness at R side RTCs Body Location infraspinatus, UT, RTC tendons , serratus anterior, lev scap Mobilization Type Myofascial Release Intensity/Depth Superficial Body Position Prone Comments gentle MFR to post scap mms( utilized vinyl gloves), requested feedback for tolerance. PT-OP-R Modalities Start: 05/22/20 12:50 Freq: Status: Active Protocol: Document 06/25/20 13:02 HH (Rec: 06/25/20 14:23 [id number]) Hot Pack/Cold Pack Treatment Hot Pack Location R shd Patient Position Supine Treatment Duration (minutes) 10 Patient Tolerance Good PT-OP-T Assessment and Plan Start: 05/22/20 12:50 Freq: Status: Active Protocol: Document 06/25/20 13:02 (Rec: 06/25/20 14:23 [id number]) Physical Therapy Assessment Goals HEP Impairment pt does not have HEP Care Home Goal (LTG) pt will be able to complete HEP safely and independently with no increase in shoulder pain 06/19/20: requires cuing for slow pace con/eccentric muscular control ROM within pain free range with awareness of fluid scap mobility to allow decreased popping pain. LTG Duration 6 weeks pain Impairment pt has constant R shoulder pain 5/10 Short Term Goal (STG) pt will have no more than 4/10 R shoulder pain in a daily basis to improve his quality of life 06/19/20: pt continues to have high level pain6-7/10, carrying groceries mostlyw with RUE but does at times need use LLE to assist. STG Duration 4weeks Care Home Goal (LTG) pt will have no more than 3/10 R shoulder pain in a daily basis to improve his quality of life LTG Duration 8 weeks ROM Impairment pt has approx 90 for R shoulder flexion and abduction Short Term Goal (STG) pt will improve his R shoulder AROM by at least 10 degrees with no increase in pain. 06/19/20: pt reports no increasd in pain up to 90 deg FF in supine. STG Duration 4 weeks Care Home Goal (LTG) pt will improve his R shoulder AROM by at least 20 degrees with no increase in pain. LTG Duration 8 weeks quickdash Impairment pt scores 50 on quickdash Short Term Goal (STG) Pt will be able to score <45 on quickdash to improve his overall quality of life STG Duration 4 weeks Refrigerating Engineer Goal (LTG) Pt will be able to score <35 on quickdash to improve his overall quality of life LTG Duration 8 weeks Assessment Summary Assessment Pt stated his progress has been the same since IE. Review with patient of his MRI findings which shows RTC tendonopathy with possible partial tear RTC and torn labrum. Pt overall continues to show limited AROM with significant pain, but close to WFL PROM. Pt overall is very pain sensitive and presents signs of self limiting behaviors for pain management. Discussed with pt to cancel his remaining appts who is going to consult orthopedics and PCP for further evaluation or possible surgical options if needed. (07/11 and 07/13) Will f/u with pt after his consultation. Physical Therapy Plan Frequency and Duration Frequency of Treatment 2x/Week Duration of Treatment 8 weeks Plan of Care Start Date 05/22/20 Plan of Care End Date 07/21/20 Therapeutic Interventions Therapeutic Interventions Home Exercise Program,Joint Mobilizations,Manual Therapy, Neuromuscular Re-education, Patient/Caregiver Education, Self-Care/Home Management,Soft Tissue Mobilization,Taping, Therapeutic Activities, Therapeutic Exercises Modalities Biofeedback,Cold Pack/Ice Massage,Electric Stimulation, Hot Packs,Infrared Therapy, Traction- Mechanical, Ultrasound Next Visit Focus/Plan Next Note Type Treatment Note Next Visit Plan check with pt if he needed sx
--- NOTE | 2020-10-05 11:50 | PT.OPDS ---
Current Diagnoses Pain in right shoulder (06/25/20) Visit Care Team Role Provider Type Heath Shook DO Attending Provider Physician Primary Care Provider Referring Provider Specialty: [facility] Address: [address] [place] [address], [facility] Email: Visit Number Visit Number 09/21 Discharge Summary PT-OP-T Assessment and Plan Start: 05/22/20 12:50 Freq: Status: Active Protocol: Document 10/05/20 11:49 (Rec: 10/05/20 11:50 [email or web address]) Physical Therapy Plan Discharge Physical Therapy Discharge Reasons No Longer Attending PT Discharge Comments pt is no longer attending PT. Pt reported his r shoulder has not shown improvements since evaluation. DC from PT today.
== END 2020-10-16 14:46 | disposition home or self-care (01) ==
LOC: PHYS 13:00
PROVIDERS: PCP Family Medicine; Referring Provider Family Medicine; Visit Provider Family Medicine
DX: M25.511 Pain in right shoulder (principal)
CPT/HCPCS: 97010; 97110; 97140; 97162; 97535

== ENCOUNTER → 2020-07-26 14:16 | Outpatient (CLI) | payer OTHER, MEDICAID, SELFPAY ==
[2020-07-26] MEDS: COVID-19 VACC #2, MRNA(MOD) 100 MCG/0.5 ML VIAL IM (14:25)
== END ==
PROVIDERS: PCP Family Medicine; Visit Provider Internal Medicine
DX: Z23 Encounter for immunization (principal)
CPT/HCPCS: 0012A; 91301

== ENCOUNTER → 2020-08-21 16:41 | Outpatient (CLI) | payer OTHER, MEDICAID, SELFPAY ==
[2020-08-21 19:06] LABS: Prostate Specific Antigen Scrn 0.548 ng/mL (0.1-4.0)
== END ==
PROVIDERS: PCP Family Medicine; Referring Provider Family Medicine; Visit Provider Family Medicine
DX: N40.1 Benign prostatic hyperplasia with lower urinary tract symptoms (principal); Z12.5 Encounter for screening for malignant neoplasm of prostate
CPT/HCPCS: 36415; G0103

== ENCOUNTER → 2020-08-22 13:25 | Outpatient (CLI) | payer OTHER, MEDICAID, SELFPAY ==
--- NOTE | 2020-08-22 13:30 | DIET.PN ---
Dietary Progress Note Assessment: 60y M referred to nutrition for help c IBS-c saw GI a year and a half ago and was told to use laxatives. Pt put on low FODMAP diet 2y ago but never told to come off of it so sortof still follows it now. Got EGD and colonoscopy in 2017 and has had sx of GERD and IBS-c since. pt has GERD and thinks he has delayed gastric emptying because foods just sit. Allergic to: peanuts, eggs, lactose, iodine, latex Does not eat bananas, cauliflower, shrimp, shellfish Supplements: probiotic, MSM for pain, magnesium citrate bid likes dark chocolate, eats all organic B: naval orange, oat bran, buckwheat, flaked quinoa pours hot water over the top c pecans and chopped walnuts OR puffed wheat mixed with Heritage flakes and frozen blueberries, hot peppermint tea c stevia drops and Vit D drops L: cod or salmon c canola oil, tumeric, and jane on a bed of greens. Not doing dairy, fortified plant based milk, or small fish with bones with slight frame at higher risk for osteoporosis Labs: historically has been low on Vitamin D Interventions: 1. Discussed appropriate use of low FODMAP diet which includes elimination phase x8w and reintroduction phase with goal of reintroducing as many foods as possible for nutrition diversity. Provided pt resource blog by RD expert in IBS. 2. Discussed pt drinking peppermint tea every morning and his GERD sx. Recc pt switch to spearmint for 2w to see improvement. 3. Pt reports being high stress and high anxiety. Discussed gut brain connection and better management of stressors. Pt would like to try medical acupuncture again for IBS sx. 4. Discussed pts low intake calcium foods and slight frame. Provided vegetarian sources of calcium handout so pt can try to pair foods each meal to support attaining 1,000mg daily. Monitoring/Evaluations: recommend Vit D labs, DEXA scan, establishing c GI here at , medical accupuncture c Carl Love, stress reduction techniques
== END ==
PROVIDERS: PCP Family Medicine; Referring Provider Family Medicine; Visit Provider Family Medicine
DX: K58.1 Irritable bowel syndrome with constipation (principal); K21.9 Gastro-esophageal reflux disease without esophagitis; Z71.3 Dietary counseling and surveillance
CPT/HCPCS: 97802

== ENCOUNTER → 2020-08-23 14:52 | Outpatient (CLI) | payer OTHER, MEDICAID, SELFPAY ==
[2020-08-23 15:26] LABS: Add Manual Diff / Slide Review NO; Basophils Absolute Auto 100 /uL (0-100); Basophils Percent Auto 1.1 % (0-2); Eosinophils Absolute Auto 100 /uL (0-450); Eosinophils Percent Auto 1.4 % (2-4); Hematocrit 49.4 % (41-53); Hemoglobin 16.8 g/dL (13.5-17.5); Lymphocytes Absolute Auto 800 /uL (1100-4500); Lymphocytes Percent Auto 14.1 % (25-40); Mean Corpuscular HGB Conc 34.1 % (30-36); Mean Corpuscular Hemoglobin 32.7 PG (26-34); Mean Corpuscular Volume 96.1 fL (80-100); Monocytes Absolute Auto 400 /uL (0-900); Monocytes Percent Auto 6.1 % (3-14); Neutrophils Absolute Auto 4500 /uL (1500-7000); Neutrophils Percent Auto 77.3 % (50-75); Platelet Count 185 X10^3/uL (150-400); Red Blood Cell Count 5.14 X10^6/uL (4.5-5.9); Red Cell Distribution Width 13.4 % (11.6-14.8); White Blood Cell Count 5.9 X10^3/uL (4.5-11.0)
[2020-08-23 16:27] LABS: Alanine Aminotransferase 25 IU/L (<50); Albumin 3.9 g/dL (3.5-5.0); Albumin Globulin Ratio 1.9 (1.0-2.8); Alkaline Phosphatase 43 U/L (38-126); Aspartate Aminotransferase 34 IU/L (17-59); BUN Creatinine Ratio 9.1 (6-22); Bilirubin Total 0.3 mg/dL (0.2-1.3); Blood Urea Nitrogen 6 mg/dL (9-20); C-Reactive Protein Quant < 0.5 mg/dL (<1.0); Calcium 9.3 mg/dL (8.4-10.2); Carbon Dioxide 30 mmol/L (22-32); Chloride 98 mmol/L (98-107); Cholesterol 103 mg/dL (140-199); Estimated Glomerular Filt Rate > 60.0 mL/min (>60); Globulin 2.1 g/dL (1.7-4.1); Glucose 86 mg/dL (80-110); HDL Cholesterol 42 mg/dL (40-60); HEMOLYSIS < 15 (0-50); LDL Cholesterol Calculated 31 mg/dL (<100); Potassium 4.8 mmol/L (3.4-5.1); Sodium 132 mmol/L (137-145); Triglycerides 149 mg/dL (35-150)
[2020-08-23 16:52] LABS: Prostate Specific Antigen Scrn 0.515 ng/mL (0.1-4.0)
== END ==
PROVIDERS: PCP Family Medicine; Referring Provider Family Medicine; Visit Provider Family Medicine
DX: I25.2 Old myocardial infarction (principal); Z12.5 Encounter for screening for malignant neoplasm of prostate
CPT/HCPCS: 36415; 80053; 80061; 85025; 86140; G0103

== ENCOUNTER → 2020-08-24 14:33 | Outpatient (CLI) | payer OTHER, MEDICAID, SELFPAY ==
[2020-08-24 17:07] LABS: Vitamin D 25 Hydroxy (D3) 40.2 ng/mL (30.0-100.0)
[2020-08-24 17:08] LABS: Vitamin B12 493 pg/mL (239-931)
== END ==
PROVIDERS: PCP Family Medicine; Referring Provider Family Medicine; Visit Provider Family Medicine
DX: R53.83 Other fatigue (principal); Z13.21 Encounter for screening for nutritional disorder
CPT/HCPCS: 36415; 82306; 82607

== ENCOUNTER → 2020-09-13 14:12 | Outpatient (CLI) | payer OTHER, MEDICAID, SELFPAY | PROVIDERS: PCP Family Medicine; Referring Provider Family Medicine; Visit Provider Family Medicine | DX: Z13.820 Encounter for screening for osteoporosis (principal); M85.851 Other specified disorders of bone density and structure, right thigh | CPT/HCPCS: 77080 ==

== ENCOUNTER → 2021-01-21 15:13 | Outpatient (CLI) | payer OTHER, MEDICAID, SELFPAY ==
[2021-01-21 16:53] LABS: Add Manual Diff / Slide Review NO; Basophils Absolute Auto 0 /uL (0-100); Basophils Percent Auto 0.6 % (0-2); Eosinophils Absolute Auto 0 /uL (0-450); Eosinophils Percent Auto 0.5 % (2-4); Hematocrit 50.7 % (41-53); Lymphocytes Absolute Auto 1100 /uL (1100-4500); Lymphocytes Percent Auto 14.2 % (25-40); Mean Corpuscular HGB Conc 33.4 % (30-36); Mean Corpuscular Hemoglobin 32.6 PG (26-34); Mean Corpuscular Volume 97.6 fL (80-100); Monocytes Absolute Auto 500 /uL (0-900); Neutrophils Absolute Auto 6200 /uL (1500-7000); Neutrophils Percent Auto 78.7 % (50-75); Platelet Count 218 X10^3/uL (150-400); Red Cell Distribution Width 13.5 % (11.6-14.8); White Blood Cell Count 7.8 X10^3/uL (4.5-11.0)
[2021-01-21 17:16] LABS: Alanine Aminotransferase 31 IU/L (<50); Albumin 4.3 g/dL (3.5-5.0); Albumin Globulin Ratio 2.2 (1.0-2.8); Alkaline Phosphatase 35 U/L (38-126); Aspartate Aminotransferase 45 IU/L (17-59); BUN Creatinine Ratio 10.6 (6-22); Bilirubin Total 0.6 mg/dL (0.2-1.3); Blood Urea Nitrogen 7 mg/dL (9-20); Calcium 9.3 mg/dL (8.4-10.2); Carbon Dioxide 31 mmol/L (22-32); Chloride 97 mmol/L (98-107); Cholesterol 132 mg/dL (140-199); Estimated Glomerular Filt Rate > 60.0 mL/min (>60); Glucose 89 mg/dL (80-110); HDL Cholesterol 45 mg/dL (40-60); LDL Cholesterol Calculated 60 mg/dL (<100); Potassium 4.3 mmol/L (3.4-5.1); Sodium 136 mmol/L (137-145); Total Protein 6.3 g/dL (6.3-8.2); Triglycerides 137 mg/dL (35-150)
[2021-01-21 17:24] LABS: HEMOLYSIS 58 (0-50)
== END ==
PROVIDERS: PCP Family Medicine; Referring Provider Internal Medicine Cardiovascular Disease; Visit Provider Internal Medicine Cardiovascular Disease
DX: I25.10 Atherosclerotic heart disease of native coronary artery without angina pectoris (principal)
CPT/HCPCS: 36415; 80053; 80061; 85025

== ENCOUNTER → 2021-02-25 13:28 | Outpatient (CLI) | payer OTHER, MEDICAID, SELFPAY ==
--- NOTE | 2021-02-25 | DI.ECHO.S_ITS ---
[facility]+ : : [address] [place] : : : : [id number] : : : : Phone: [phone]+ Echocardiogram Report + + :Name: JIGAR BENAVIDES Study Date: 02/25/2021 Height: 69 in : :[facility] ReadingLocation: Weight: 146 lb : : Gender: Male BSA: 1.8 m2 : :: 1960 Age: 60 yrs BP: 141/89 mmHg: :Reason For Study: CAD : :Ordering Physician: : :KIYA Performed By: Osmani Ledezma : :Referring: GELACIO BRIGHT : + + Interpretation Summary The left ventricle is normal in size and wall thickness. Left ventricular systolic function is normal. The ejection fraction is estimated to be 55-60%. This is unchanged compared to the previous study. There are no focal wall motion abnormalities. Procedure: A two-dimensional transthoracic echocardiogram with color flow and Doppler was performed in limited views only to assess LVEF. The study quality was technically adequate. Comparison is made with the echocardiogram of 11/19/2017. Fair apical window. The patient was in normal sinus rhythm during the exam. Left Ventricle: The left ventricle is normal in size and wall thickness. There is borderline proximal septal thickening noted. Left ventricular systolic function is normal. The ejection fraction is estimated to be 55-60%. This is unchanged compared to the previous study. There are no focal wall motion abnormalities. Pericardium/ Pleura There is no pericardial effusion. There is an anterior echo-free space consistent with a fat pad. There is no pleural effusion. MMode/2D Measurements & Calculations LVIDd: 4.5 cm LVLs ap4: 6.2 cm LVIDs: 3.4 cm FS: 24.4 % IVSd: 1.1 cm LVPWd: 0.90 cm LV britt. diameter/BSA (cm/m^2): 2.5 LV sys. diameter/BSA (cm/m^2): 1.9 LVLd ap2: 6.7 cm LVLs ap2: 5.3 cm Reading Physician:05:51 PM
== END ==
PROVIDERS: PCP Family Medicine; Referring Provider Internal Medicine Cardiovascular Disease; Visit Provider Internal Medicine Cardiovascular Disease
DX: I25.10 Atherosclerotic heart disease of native coronary artery without angina pectoris (principal)
CPT/HCPCS: 93307

== ENCOUNTER 2021-04-16 17:30 | Emergency (ER) | payer OTHER, MEDICAID, SELFPAY ==
--- NOTE | 2021-04-16 17:33 | DI.RAD.S_ITS ---
PROCEDURE: XR CHEST 2V INDICATIONS: possible foreign body TECHNIQUE: 2 views of the chest were acquired. COMPARISON: None. FINDINGS: Surgical changes and devices: None. Lungs and pleura: Lungs are clear. No pleural effusions or pneumothorax. Mediastinum: Mediastinal contours are normal. Heart size is normal. Bones and chest wall: No suspicious bony abnormalities. Soft tissues appear unremarkable. No radiopaque foreign bodies are seen. IMPRESSION: No radiopaque foreign bodies are seen. No findings of air trapping are seen. Dictated by: Darwin Potter M.D. on 04/16/2021 at 16:42 Approved by: Darwin Potter M.D. on 04/16/2021 at 16:43
[2021-04-16 17:34] VITALS: BP 151/78; PULSE 72; RESP 22; TEMP 36.7; O2SAT 100
--- NOTE | 2021-04-16 17:42 | PC.NURSE ---
c/o sore throat from the saw palmetto capsule that opened up. coughing. feels like it lodged in his airway. pt is talking in full sentences. no resp. distress.
--- NOTE | 2021-04-16 23:13 | ED.SOB ---
HPI - SOB/Dyspnea General Chief Complaint: Shortness of Breath/Dyspnea Stated Complaint: choking episode Time Seen by Provider: 04/16/21 18:08 Source: patient Mode of arrival: Ambulatory History of Present Illness HPI Narrative: 61-year-old male nonsmoker with noncontributory medical history presents with a chief complaint a choking episode had occurred in largely resolved just prior to his arrival. He was taking a vitamin supplement when it fell acute got caught up in his throat, he drank some water and coughed quite a bit, he does not admit to obviously clearing the pill fragments but states he is able to swallow now without too much difficulty. He denies any possibility of a sharp or metallic object. He denies any likelihood of any other potential food bolus or other esophageal foreign body. He has no chest pain or shortness of breath. He denies any fever or chills. He has had a few occurrences in the past were pills felt the became stuck in his throat but he has never had the need for an endoscopist to remove a retained foreign body Related Data Home Medications Medication Instructions Recorded Confirmed Lactobacillus acidophilus 1 cap PO DAILY cap 08/28/17 03/18/21 Ubiquinol 50 mg PO DAILY 08/28/17 03/18/21 multivitamin with minerals 1 tab PO DAILY 10/07/17 03/18/21 magnesium oxide 600 mg PO BEDTIME tab 11/18/17 03/18/21 cholecalciferol (vitamin D3) 25 5,000 unit PO DAILY cap 11/01/19 03/18/21 mcg (1,000 unit) capsule (Vitamin D3) saw palmetto 450 mg capsule 1,350 mg PO TID cap 11/01/19 03/18/21 Previous Rx's Medication Instructions Recorded budesonide 180 mcg/actuation 1 inhalation INHALATION BID #1 each 06/29/19 breath activated powder inhaler (Pulmicort Flexhaler) acetaminophen 500 mg tablet (Pain See Rx Instructions .ROUTE 11/30/19 Reliever Extra Strength) .COMPLEX #120 tablet lidocaine 5 % topical ointment 1 applictn TOP BID-QID PRN #30 gram 01/09/20 diazepam 5 mg tablet 5 mg PO ONCE PRN #1 tab 05/28/20 albuterol sulfate 90 mcg/actuation 1 puff INHALATION Q4H PRN #6.7 gram 06/04/20 aerosol inhaler (Ventolin HFA) fexofenadine 180 mg tablet 180 mg PO DAILY #30 tab 07/20/20 (Sharon Allergy) nitroglycerin 0.4 mg sublingual 0.4 mg SL Q5-15M PRN #25 tab 09/24/20 tablet (Nitrostat) escitalopram oxalate 10 mg tablet 20 mg PO DAILY #60 tab 10/25/20 (Lexapro) trazodone 50 mg tablet 75 mg PO BEDTIME PRN #135 tab 02/01/21 methocarbamol 500 mg tablet See Rx Instructions .ROUTE 03/19/21 .COMPLEX #60 tab simethicone 80 mg chewable tablet See Rx Instructions .ROUTE 03/22/21 (Mi-Acid Gas Relief (simethicone)) .COMPLEX #180 tab alirocumab 75 mg/mL subcutaneous 75 mg SUBCUT Q2W #2 ml 04/04/21 pen injector (Praluent Pen) clonazepam 0.5 mg tablet See Rx Instructions .ROUTE 04/04/21 .COMPLEX #45 tab tramadol 50 mg tablet See Rx Instructions .ROUTE 04/04/21 .COMPLEX #120 tab levalbuterol HCl 1.25 mg/3 mL 1.25 mg (3 mL) INHALATION Q4-6H 04/16/21 solution for nebulization (Xopenex) PRN #75 ml Allergies Allergy/AdvReac Type Severity Reaction Status Date / Time iodine Allergy Intermediate itching, Verified 03/18/21 12:51 swelling latex Allergy Intermediate rash, Verified 03/18/21 12:51 itching procaine [From Novocain] Allergy Intermediate increased Verified 03/18/21 12:51 heart rate egg Allergy Mild Verified 03/18/21 12:51 atorvastatin AdvReac Intermediate Verified 03/18/21 12:51 diclofenac [From Voltaren] AdvReac Intermediate Nausea Verified 03/18/21 12:51 gabapentin AdvReac Intermediate Confusion Verified 03/18/21 12:51 lactase [From Dairy Aid] AdvReac Intermediate upset Verified 03/18/21 12:51 stomach montelukast [From Singulair] AdvReac Intermediate causes Verified 03/18/21 12:51 depression to worsen prednisone AdvReac Intermediate makes Verified 03/18/21 12:51 patient feel wired, heart racing pregabalin [From Lyrica] AdvReac Intermediate Nausea Verified 03/18/21 12:51 Proton Pump Inhibitors AdvReac Intermediate upset Verified 03/18/21 12:51 stomach NSAIDS (Non-Steroidal AdvReac Mild GI upset Verified 03/18/21 12:51 Anti-Inflamma peanuts Allergy Severe swelling Uncoded 03/18/21 12:51 of tongue and throat Review of Systems Review of Systems Narrative: GENERAL: Denies chills, fatigue, malaise, fever, sweats. HEENT: see HPI RESPIRATORY: see HPI CARDIOVASCULAR: See HPI GASTROINTESTINAL: Denies nausea, vomiting, abdominal pain, diarrhea, constipation, melena. : Denies dysuria, frequency, incontinence, hematuria, urinary retention. MUSCULOSKELETAL: denies weakness, joint pain, or bony pain SKIN: Denies rash, skin lesions, or other NEUROLOGIC: Denies weakness, headache, numbness, change in speech, confusion, seizures, incoordination. PSYCHIATRIC: No concerning psychosocial issues. 12 point review of systems is negative except for those stated above Patient History Medical History Anxiety (1960) Asthma (1977) BPH w urinary obs/LUTS Cataracts, bilateral (2016) Cervical somatic dysfunction Chickenpox (Unknown) Chronic back pain (1994) Colon polyps (2016) Constipation (Unknown) Coronary artery disease (2004) Cranial somatic dysfunction Depression (1960) Excessive cerumen in left ear canal Fibromyalgia (1992) Foot pain (2016) Frequent urination (1999) Giant comedone Hernia History of hematuria History of hydrocele Low back pain Low testosterone (2014) Measles (Unknown) Myocardial infarction (2004) Nonallopathic lesion of upper extremities, not elsewhere classified Normal colonoscopy Osteopenia Pelvic somatic dysfunction Primary osteoarthritis, right shoulder PTSD (post-traumatic stress disorder) (2000) Right wrist pain Screening for osteoporosis Screening for prostate cancer Segmental and somatic dysfunction of abdomen and other regions Segmental and somatic dysfunction of lumbar region Segmental and somatic dysfunction of rib cage Segmental and somatic dysfunction of sacral region Segmental and somatic dysfunction of thoracic region Segmental and somatic dysfunction of upper extremity Shoulder pain (2017) Testicular/scrotal pain TMJ (temporomandibular joint disorder) Surgical History History of hernia repair History of hydrocelectomy History of throat surgery (2010) History of vasectomy S/P repair of hydrocele Family History Father Congestive heart failure Mother Hyperlipidemia Heart disease Stroke Brother Cancer Mental health problem Brother Alcohol abuse Grandfather No problems noted. Grandmother No problems noted. Grandfather Stroke Grandmother No problems noted. Social History marital status: unmarried,single number of children: 0 household members: none Smoking Status: Never smoker alcohol intake: never substance use type: does not use Smoking Status: Never smoker Substance Use Type: does not use Exam Narrative Exam Narrative: GENERAL: [61] year old patient appears stated age. Well-developed patient, in mild distress. HEAD: Atraumatic. Normocephalic. EYES: Pupils equal round and reactive. Extraocular motions intact. No scleral icterus. No injection or drainage. ENT: Dry mucous membranesNose without bleeding, purulent drainage. Throat without erythema, tonsillar hypertrophy or exudate. Airway patent. NECK: Trachea midline. Non tender CARDIOVASCULAR: Regular rate and rhythm without murmurs, gallops, or rubs. RESPIRATORY: Clear to auscultation. Breath sounds equal bilaterally. No wheezes, rales, or rhonchi. no significant work of breathing, tachypnea, hypoxemia GASTROINTESTINAL: Abdomen soft, non-tender, nondistended. EXTREMITIES: No edema or joint tenderness. BACK: Nontender without deformity or crepitance. No flank tenderness. NEURO: AOx3. SKIN: No rash or erythema of visible areas Initial Vital Signs Initial Vital Signs: Vital Signs Temperature 98.0 F 04/16/21 17:34 Pulse Rate 72 04/16/21 17:34 Respiratory Rate 22 04/16/21 17:34 Blood Pressure 151/78 H 04/16/21 17:34 Pulse Oximetry 100 04/16/21 17:34 Course Orders Ordered: ED Orders 04/16/21 17:33 CXR [XR chest 2V] Stat Vital Signs Vital signs: Vital Signs - 8 hr 04/16/21 17:34 Temperature 98.0 F Pulse Rate 72 Respiratory Rate 22 Blood Pressure 151/78 H Pulse Oximetry 100 MDM - SOB/Dyspnea Imaging Data Chest x-ray: Radiologist's Impression: [address] [place] [address] XRay Report Signed Patient: Ash Keen III MR#: [id number] : 1960 Acct:[id number] Age/Sex: 61 / M Date of Service: 04/16/21 Loc: ED Accession Number: [id number] ?? Procedure: XR chest 2V Ordering Provider: Drew Cooper D.O. PROCEDURE:? XR CHEST 2V ? INDICATIONS:? possible foreign body ? TECHNIQUE:? 2 views of the chest were acquired.? ? COMPARISON:? None. ? FINDINGS:? ? Surgical changes and devices:? None.? ? Lungs and pleura:? Lungs are clear.? No pleural effusions or pneumothorax.? ? Mediastinum:? Mediastinal contours are normal.? Heart size is normal.? ? Bones and chest wall:? No suspicious bony abnormalities.? Soft tissues appear unremarkable.? No radiopaque foreign bodies are seen. ? ? ? IMPRESSION:? No radiopaque foreign bodies are seen. ? No findings of air trapping are seen.? Dictated by: Darwin Potter M.D. on 04/16/2021 at 16:42 ? ? Approved by: Darwin Potter M.D. on 04/16/2021 at 16:43 ? MDM Narrative Medical decision making narrative: patient with a brief, and spontaneously resolved choking episode prior to arrival. He is able to tolerate orals, no difficulty controlling secretions. He has no difficulty in breathing. Imaging is reassuring. Return precautions given and questions answered to his apparent satisfaction Discharge Plan Departure Patient Disposition: Home Clinical Impression: Choking episode Instructions: DI for Choking Episode Activity Restrictions/Additional Instructions: *You have been diagnosed with [choking episode resolved. Your physical exam and chest x-ray are very reassuring *What to do: *Please continue to take your regular medications as directed. [] New medication prescriptions sent to your pharmacy: [ ] [x ] New medication written as a paper prescription [ ] No new medications given *Please follow up with your primary care provider in 2-3 days, call for an appointment. Let them know you were seen in the Emergency Department and that we ask that you be seen in follow up. We will electronically transmit a record of today's note if your PCP is in our system *If you do not have a primary care provider please contact the [facility] Resource line at [phone]. They will ask some questions about your medical history and help get you set up with a doctor in the community. *Return to Emergency Department if you should have any new, worsening or concerning symptoms, such as [fever greater than 101 F, shaking chills, worsening pain, persistent vomiting or other bothersome symptoms] Prescriptions: New levalbuterol HCl [Xopenex] 1.25 mg/3 mL solution for nebulization 1.25 mg inhalation Q4-6H PRN (Reason: shortness of breath or wheezing) Qty: 75 0RF No Action Lactobacillus acidophilus capsule 1 cap PO DAILY 0RF Ubiquinol capsule 50 mg PO DAILY 0RF Pulmicort Flexhaler 180 mcg/actuation aerosol powdr breath activated 1 inhalation INHALATION BID Qty: 1 11RF acetaminophen [Pain Reliever Extra Strength] 500 mg tablet See Rx Instructions .ROUTE .COMPLEX Qty: 120 1RF Dose Instruction: TAKE 1 TABLET BY MOUTH FOUR TIMES DAILY NEEDED FOR PAIN Rx Instructions: TAKE 1 TABLET BY MOUTH FOUR TIMES DAILY NEEDED FOR PAIN lidocaine 5 % ointment 1 applictn TOP BID-QID PRN (Reason: pain) Qty: 30 5RF diazepam 5 mg tablet 5 mg PO ONCE PRN (Reason: anxiety) Qty: 1 0RF Ventolin HFA 90 mcg/actuation HFA aerosol inhaler 1 puff INHALATION Q4H PRN (Reason: Wheezing) Qty: 6.7 11RF fexofenadine [Sharon Allergy] 180 mg tablet 180 mg PO DAILY Qty: 30 11RF nitroglycerin [Nitrostat] 0.4 mg tablet, sublingual 0.4 mg SL Q5-15M PRN (Reason: Chest Pain) Qty: 25 5RF methocarbamol 500 mg tablet See Rx Instructions .ROUTE .COMPLEX Qty: 60 4RF Dose Instruction: TAKE 1 TABLET BY MOUTH TWICE DAILY NEEDED FOR MUSCLE SPASMCAMBER BRAND ONLY Rx Instructions: TAKE 1 TABLET BY MOUTH TWICE DAILY NEEDED FOR MUSCLE SPASMCAMBER BRAND ONLY simethicone [Mi-Acid Gas Relief(simethicon)] 80 mg tablet,chewable See Rx Instructions .ROUTE .COMPLEX Qty: 180 5RF Dose Instruction: CHEW AND SWALLOW 2 TABLETS BY MOUTH THREE TIMES DAILY NEEDED FOR FLATULENCE Rx Instructions: CHEW AND SWALLOW 2 TABLETS BY MOUTH THREE TIMES DAILY NEEDED FOR FLATULENCE clonazepam 0.5 mg tablet See Rx Instructions .ROUTE .COMPLEX Qty: 45 0RF Rx Instructions: Take 1 tablet by mouth up to twice daily as needed for anxiety tramadol 50 mg tablet See Rx Instructions .ROUTE .COMPLEX Qty: 120 0RF Rx Instructions: Take 1 tablet by mouth once every 6 hours as needed for pain; Take 1 tablet by mouth once every 6 hours as needed for pain Praluent Pen 75 mg/mL pen injector 75 mg SUBCUT Q2W Qty: 2 11RF saw palmetto 450 mg capsule 1,350 mg PO TID 0RF Rx Instructions: give with food (meal/snack) escitalopram oxalate [Lexapro] 10 mg tablet 20 mg PO DAILY Qty: 60 5RF trazodone 50 mg tablet 75 mg PO BEDTIME PRN (Reason: Sleep) Qty: 135 1RF multivitamin with minerals Tablet 1 tab PO DAILY 0RF magnesium oxide 200 mg magnesium tablet 600 mg PO BEDTIME 0RF cholecalciferol (vitamin D3) [Vitamin D3] 25 mcg (1,000 unit) capsule 5,000 unit PO DAILY 0RF Referrals: Heath Shook DO [Primary Care Provider] -
== END 2021-04-16 19:29 | disposition home or self-care (01) ==
PROVIDERS: Emergency Provider Emergency Medicine; PCP Family Medicine
DX: T17.998A Other foreign object in respiratory tract, part unspecified causing other injury, initial encounter (principal)
CPT/HCPCS: 71046; 99283

== ENCOUNTER → 2021-05-03 12:09 | Outpatient (CLI) | payer OTHER, MEDICAID, SELFPAY ==
[2021-05-03 15:11] LABS: Add Manual Diff / Slide Review NO; Basophils Absolute Auto 100 /uL (0-100); Basophils Percent Auto 0.8 % (0-2); Eosinophils Absolute Auto 100 /uL (0-450); Eosinophils Percent Auto 1.4 % (2-4); Lymphocytes Absolute Auto 900 /uL (1100-4500); Lymphocytes Percent Auto 12.1 % (25-40); Mean Corpuscular Hemoglobin 32.7 PG (26-34); Mean Corpuscular Volume 96.2 fL (80-100); Monocytes Absolute Auto 400 /uL (0-900); Monocytes Percent Auto 5.1 % (3-14); Neutrophils Absolute Auto 6200 /uL (1500-7000); Neutrophils Percent Auto 80.6 % (50-75); Platelet Count 199 X10^3/uL (150-400); Red Cell Distribution Width 13.1 % (11.6-14.8); White Blood Cell Count 7.7 X10^3/uL (4.5-11.0)
[2021-05-03 15:42] LABS: Alanine Aminotransferase 27 IU/L (<50); Albumin 4.1 g/dL (3.5-5.0); Albumin Globulin Ratio 1.9 (1.0-2.8); Alkaline Phosphatase 34 U/L (38-126); Aspartate Aminotransferase 47 IU/L (17-59); BUN Creatinine Ratio 9.3 (6-22); Bilirubin Total 0.5 mg/dL (0.2-1.3); Blood Urea Nitrogen 7 mg/dL (9-20); Carbon Dioxide 31 mmol/L (22-32); Chloride 100 mmol/L (98-107); Cholesterol 128 mg/dL (140-199); Estimated Glomerular Filt Rate > 60.0 mL/min (>60); Globulin 2.2 g/dL (1.7-4.1); Glucose 90 mg/dL (80-110); HDL Cholesterol 44 mg/dL (40-60); HEMOLYSIS 24 (0-50); LDL Cholesterol Calculated 47 mg/dL (<100); Potassium 3.9 mmol/L (3.4-5.1); Sodium 136 mmol/L (137-145); Total Protein 6.3 g/dL (6.3-8.2); Triglycerides 183 mg/dL (35-150)
[2021-05-03 16:18] LABS: Prostate Specific Antigen 0.535 ng/mL (0.10-4.00)
== END ==
PROVIDERS: Urology; PCP Family Medicine; Referring Provider Family Medicine; Visit Provider Family Medicine
DX: N13.8 Other obstructive and reflux uropathy (principal); N40.1 Benign prostatic hyperplasia with lower urinary tract symptoms; I10 Essential (primary) hypertension; Z95.5 Presence of coronary angioplasty implant and graft; I25.2 Old myocardial infarction; Z87.448 Personal history of other diseases of urinary system; Z12.5 Encounter for screening for malignant neoplasm of prostate
CPT/HCPCS: 36415; 80053; 80061; 84153; 85025

== ENCOUNTER → 2021-07-17 15:23 | Outpatient (CLI) | payer OTHER, MEDICAID, SELFPAY ==
[2021-07-17 16:46] LABS: Prostate Specific Antigen 1.43 ng/mL (0.10-4.00)
== END ==
PROVIDERS: PCP Family Medicine; Referring Provider Urology; Visit Provider Urology
DX: R97.20 Elevated prostate specific antigen [PSA] (principal)
CPT/HCPCS: 36415; 84153

== ENCOUNTER → 2021-08-27 12:34 | Outpatient (CLI) | payer OTHER, MEDICAID, SELFPAY ==
[2021-08-27 14:18] LABS: Free T3, Triiodothyronine Free 3.29 pg/mL (2.77-5.27); Free T4, Direct Thyroxine 0.95 ng/dL (0.78-2.19)
[2021-08-27 14:32] LABS: Thyroid Stimulating Hormone 0.715 uIU/mL (0.47-4.68)
== END ==
PROVIDERS: PCP Family Medicine; Referring Provider Family Medicine; Visit Provider Family Medicine
DX: E04.9 Nontoxic goiter, unspecified (principal); R68.89 Other general symptoms and signs; Z80.8 Family history of malignant neoplasm of other organs or systems
CPT/HCPCS: 36415; 84439; 84443; 84481

== ENCOUNTER → 2021-09-27 12:37 | Outpatient (CLI) | payer OTHER, MEDICAID, SELFPAY ==
[2021-09-27 13:32] LABS: Add Manual Diff / Slide Review NO; Basophils Absolute Auto 0 /uL (0-100); Basophils Percent Auto 0.5 % (0-2); Eosinophils Absolute Auto 100 /uL (0-450); Eosinophils Percent Auto 1.9 % (2-4); Hematocrit 51.7 % (41-53); Hemoglobin 17.6 g/dL (13.5-17.5); Lymphocytes Absolute Auto 900 /uL (1100-4500); Lymphocytes Percent Auto 13.2 % (25-40); Mean Corpuscular Hemoglobin 32.6 PG (26-34); Mean Corpuscular Volume 95.8 fL (80-100); Monocytes Absolute Auto 400 /uL (0-900); Monocytes Percent Auto 5.1 % (3-14); Neutrophils Absolute Auto 5400 /uL (1500-7000); Neutrophils Percent Auto 79.3 % (50-75); Platelet Count 232 X10^3/uL (150-400); Red Blood Cell Count 5.39 X10^6/uL (4.5-5.9); Red Cell Distribution Width 12.9 % (11.6-14.8); White Blood Cell Count 6.8 X10^3/uL (4.5-11.0)
[2021-09-27 13:48] LABS: C-Reactive Protein Quant < 0.5 mg/dL (<1.0)
== END ==
PROVIDERS: PCP Family Medicine; Referring Provider Pediatrics; Visit Provider Pediatrics
DX: T14.8XXA Other injury of unspecified body region, initial encounter (principal)
CPT/HCPCS: 36415; 85025; 86140

== ENCOUNTER → 2021-10-03 12:55 | Outpatient (CLI) | payer OTHER, MEDICAID, SELFPAY ==
--- NOTE | 2021-10-03 12:55 | DI.US.S_ITS ---
PROCEDURE: US THYROID INDICATIONS: enlarged thyroid TECHNIQUE: Real-time scanning was performed of the thyroid gland, with image documentation. COMPARISON: None. FINDINGS: Right thyroid measures 4.6 x 2.1 x 1.6 cm. Left thyroid measures 4.0 x 1.7 x 1.5 cm. The thyroid isthmus measures 0.3 cm in thickness. No actionable thyroid nodules. IMPRESSION: No actionable thyroid nodules. Normal thyroid parenchyma. Dictated by: Eric Magallon M.D. on 10/03/2021 at 13:25 Approved by: Eric Magallon M.D. on 10/03/2021 at 13:27
== END ==
PROVIDERS: PCP Family Medicine; Referring Provider Family Medicine; Visit Provider Family Medicine
DX: E04.9 Nontoxic goiter, unspecified (principal); Z80.8 Family history of malignant neoplasm of other organs or systems
CPT/HCPCS: 76536

== ENCOUNTER → 2021-10-21 16:16 | Outpatient (CLI) | payer OTHER, MEDICAID, SELFPAY ==
[2021-10-21 17:50] LABS: Prostate Specific Antigen 0.633 ng/mL (0.10-4.00)
== END ==
PROVIDERS: PCP Family Medicine; Referring Provider Urology; Visit Provider Urology
DX: R97.20 Elevated prostate specific antigen [PSA] (principal)
CPT/HCPCS: 36415; 84153

== ENCOUNTER → 2022-01-09 11:38 | Outpatient (CLI) | payer OTHER, MEDICAID, SELFPAY ==
[2022-01-09 13:10] LABS: Cholesterol 125 mg/dL (140-199); HDL Cholesterol 45 mg/dL (40-60); LDL Cholesterol Calculated 38 mg/dL (<100); Triglycerides 209 mg/dL (35-150)
[2022-01-09 13:37] LABS: Prostate Specific Antigen Scrn 0.611 ng/mL (0.1-4.0)
== END ==
PROVIDERS: PCP Family Medicine; Referring Provider Family Medicine; Visit Provider Family Medicine
DX: Z12.5 Encounter for screening for malignant neoplasm of prostate (principal); I10 Essential (primary) hypertension
CPT/HCPCS: 36415; 80061; G0103

== ENCOUNTER → 2022-04-21 14:52 | Outpatient (CLI) | payer OTHER, MEDICAID, SELFPAY | PROVIDERS: PCP Family Medicine; Referring Provider Urology; Visit Provider Urology | DX: F40.298 Other specified phobia (principal) | CPT/HCPCS: 36415; 84153 ==

== ENCOUNTER 2022-04-27 17:25 | Emergency (ER) | payer OTHER, MEDICAID, SELFPAY ==
[2022-04-27 17:29] VITALS: BP 134/87; PULSE 77; RESP 20; TEMP 36.7; O2SAT 98; BMI 22.4
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
== END 2022-04-27 19:33 | disposition home or self-care (01) ==
PROVIDERS: Emergency Provider Emergency Medicine; PCP Family Medicine
DX: S06.0X0A Concussion without loss of consciousness, initial encounter (principal); S16.1XXA Strain of muscle, fascia and tendon at neck level, initial encounter; S00.431A Contusion of right ear, initial encounter; Y04.2XXA Assault by strike against or bumped into by another person, initial encounter
CPT/HCPCS: 99281

== ENCOUNTER 2022-05-01 18:01 | Emergency (ER) | payer OTHER, MEDICAID, SELFPAY ==
[2022-05-01 18:05] VITALS: BP 201/93; PULSE 86; RESP 15; TEMP 36.9; O2SAT 97; BMI 22.1
--- NOTE | 2022-05-01 18:09 | DI.CT.S_ITS ---
PROCEDURE: CT HEAD/BRAIN WO CON INDICATIONS: htn, dizzy TECHNIQUE: Noncontrast 4.5 mm thick angled axial sections acquired from the foramen magnum to the vertex, with coronal and sagittal reformats. For radiation dose reduction, the following was used: automated exposure control, adjustment of mA and/or kV according to patient size. COMPARISON: None. FINDINGS: Image quality: Excellent. CSF spaces: Basal cisterns are patent. No extra-axial fluid collections. The ventricles are symmetric in size and shape. Brain: No intracranial bleeds or masses. There is cerebral volume loss for age, with resultant ventricular and sulcal prominence. There are periventricular and deep white matter chronic small vessel ischemic changes. There is intracranial internal carotid artery atherosclerosis. Skull and face: Calvarium and visualized facial bones appear intact, without suspicious lesions. Sinuses: Visualized sinuses and mastoids are clear. A left-sided ty bullosa is incidentally noted. IMPRESSION: No acute intracranial hemorrhage is seen. No acute intracranial process is seen. Dictated by: Darwin Potter M.D. on 05/01/2022 at 17:41 Approved by: Darwin Potter M.D. on 05/01/2022 at 17:41
--- NOTE | 2022-05-01 18:09 | DI.RAD.S_ITS ---
PROCEDURE: XR CHEST 1V INDICATIONS: htn, dizzy TECHNIQUE: One view of the chest was acquired. COMPARISON: [facility], CR, XR CHEST 2V, 04/16/2021, 17:25. FINDINGS: Surgical changes and devices: None. Lungs and pleura: Lungs are clear. No pleural effusions or pneumothorax. Mediastinum: Mediastinal contours appear normal. Heart size is normal. Bones and chest wall: No suspicious bony lesions. Mild dextroconvex scoliotic curvature is seen. Age-appropriate bony degenerative changes are seen. Overlying soft tissues appear unremarkable. IMPRESSION: Portable chest within normal limits for age. Dictated by: Darwin Potter M.D. on 05/01/2022 at 17:39 Approved by: Darwin Potter M.D. on 05/01/2022 at 17:39
[2022-05-01 18:27] LABS: Add Manual Diff / Slide Review NO; Basophils Absolute Auto 0 /uL (0-100); Basophils Percent Auto 0.5 % (0-2); Eosinophils Absolute Auto 0 /uL (0-450); Eosinophils Percent Auto 0.5 % (2-4); Hematocrit 52.1 % (41-53); Hemoglobin 17.8 g/dL (13.5-17.5); Lymphocytes Absolute Auto 700 /uL (1100-4500); Lymphocytes Percent Auto 6.6 % (25-40); Mean Corpuscular HGB Conc 34.2 % (30-36); Mean Corpuscular Hemoglobin 33.1 PG (26-34); Mean Corpuscular Volume 96.7 fL (80-100); Monocytes Absolute Auto 400 /uL (0-900); Monocytes Percent Auto 4.1 % (3-14); Neutrophils Absolute Auto 9200 /uL (1500-7000); Neutrophils Percent Auto 88.3 % (50-75); Platelet Count 238 X10^3/uL (150-400); Red Blood Cell Count 5.39 X10^6/uL (4.5-5.9); Red Cell Distribution Width 13.6 % (11.6-14.8); White Blood Cell Count 10.4 X10^3/uL (4.5-11.0)
[2022-05-01 18:32] VITALS: BP 176/95
[2022-05-01 18:39] LABS: Alanine Aminotransferase 35 IU/L (<50); Albumin 4.7 g/dL (3.5-5.0); Albumin Globulin Ratio 1.7 (1.0-2.8); Alkaline Phosphatase 48 U/L (38-126); Aspartate Aminotransferase 45 IU/L (17-59); BUN Creatinine Ratio 9.5 (6-22); Bilirubin Total 0.6 mg/dL (0.2-1.3); Blood Urea Nitrogen 7 mg/dL (9-20); Calcium 9.5 mg/dL (8.4-10.2); Carbon Dioxide 30 mmol/L (22-32); Chloride 96 mmol/L (98-107); Creatine Kinase 183 U/L (55-170); Estimated Glomerular Filt Rate > 60 mL/min (>60); Globulin 2.7 g/dL (1.7-4.1); Glucose 106 mg/dL (80-110); HEMOLYSIS 27 (0-50); Lipase 60 U/L (23-300); Potassium 3.9 mmol/L (3.4-5.1); Sodium 137 mmol/L (137-145); Total Protein 7.4 g/dL (6.3-8.2)
[2022-05-01 18:40] LABS: UR Morphine/Opiate cutoff 300 Negative (Negative); Ur Creatinine Normal (Normal); Ur Specific Gravity Normal (Normal); Urine Amphetamines Negative (Negative); Urine Barbiturates Negative (Negative); Urine Benzodiazepines Negative (Negative); Urine Cocaine Negative (Negative); Urine MDMA Negative (Negative); Urine Methadone Negative (Negative); Urine Methamphetamines Negative (Negative); Urine Phencyclidine Negative (Negative); Urine Tetrahydrocannabinol Negative (Negative); Urine Tricyclic Antidepressant Negative (Negative); Urine pH Normal (Normal)
[2022-05-01 18:41] LABS: Urine Oxycodone Negative (Negative)
[2022-05-01 18:47] LABS: NT-proBNP (BNP-Adult 18+) 243 pg/mL (<125)
[2022-05-01 18:51] LABS: Troponin I < 0.012 ng/mL (0.01-0.034)
[2022-05-01 18:54] LABS: CKMB % Relative Index 1.3 % (1.5-5.0); Creatine Kinase MB 2.38 ng/mL (<2.37)
[2022-05-01 19:00] VITALS: BP 177/90
--- NOTE | 2022-05-01 19:08 | ED_ITS ---
HPI - General Adult <Hank Merrill PA-C - Last Filed: 05/01/22 19:25> General Chief complaint: Hypertension Stated complaint: High Blood Pressure, Dizzy, Fit for [facility] Time Seen by Provider: 05/01/22 18:09 Source: police Mode of arrival: Ambulatory History of Present Illness HPI narrative: This is a 62-year-old male with a history of hypertension presents to the emergency department with police to be deemed fit for penitentiary. Patient was on their way to penitentiary when a elevated blood pressure reading was recorded and sonu ent reporting a headache. He was brought here to be determined 5th for penitentiary. Patient only reports a mild headache along with his chronic neck pain. Denies any chest pain, shortness of breath, or any other concerning signs or symptoms. States he usually takes clonazepam 0.5 mg to help with his blood pressure. Related Data Home Medications Medication Instructions Recorded Confirmed Lactobacillus acidophilus 1 cap PO DAILY 08/28/17 04/10/22 Ubiquinol 50 mg PO DAILY 08/28/17 04/10/22 multivitamin with minerals 1 tab PO DAILY 10/07/17 04/10/22 magnesium carb,citrate,oxide mg PO 07/23/21 04/10/22 saw palmetto 450 mg capsule 1,800 mg PO TID 07/23/21 04/10/22 arnica gel topical 08/27/21 04/10/22 chamomile caps PO 08/27/21 04/10/22 cholecalciferol (vitamin D3) 50 50 mcg PO DAILY 08/27/21 04/10/22 mcg/drop (2,000 unit/drop) oral drops curcumin PO 08/27/21 04/10/22 vitamin b12 PO 10/22/21 04/10/22 Previous Rx's Medication Instructions Recorded acetaminophen 500 mg tablet (Pain See Rx Instructions .Route 11/30/19 Reliever Extra Strength .COMPLEX #120 tabs (acetaminophen)) lidocaine 5 % topical ointment 1 applictn topical BID-QID PRN 01/09/20 pain #30 grams fexofenadine 180 mg tablet 180 mg PO DAILY #30 tabs 07/20/20 (Sharon Allergy) clotrimazole 1 % topical cream 1 applic topical BID #30 grams 04/17/21 (Antifungal (clotrimazole)) trazodone 50 mg tablet 75 mg PO BEDTIME PRN Sleep #135 05/24/21 tabs budesonide 180 mcg/actuation 1 inh inhalation BID #1 ea 11/04/21 breath activated powder inhaler (Pulmicort Flexhaler) nitroglycerin 0.4 mg sublingual 0.4 mg sublingual Q5-15M PRN Chest 11/07/21 tablet (Nitrostat) Pain #25 tabs albuterol sulfate 90 mcg/actuation 1 puff inhalation Q4H PRN Wheezing 12/06/21 aerosol inhaler (Ventolin HFA) #6.7 grams simethicone 80 mg chewable tablet See Rx Instructions .Route 12/20/21 .COMPLEX #180 tabs clonazepam 0.5 mg tablet See Rx Instructions .Route 01/01/22 .COMPLEX #45 tabs CBD liquid extract drops 1 ml PO TID #1 drp 01/10/22 Papaya Digestive Enzymes 65 mg PO TID #3 tabs 01/10/22 Pro-Biotic 400 mg PO DAILY #1 tab 01/10/22 methocarbamol 500 mg tablet See Rx Instructions .Route 02/11/22 .COMPLEX #60 tabs escitalopram oxalate 20 mg tablet 20 mg PO .Twice daily #60 tabs 02/24/22 alirocumab 75 mg/mL subcutaneous 75 mg SUBCUT Q2W #2 mL 04/10/22 pen injector (Praluent Pen) psyllium husk 0.4 gram capsule 1.2 g PO TID #270 caps 04/10/22 (Metamucil) tramadol 50 mg tablet See Rx Instructions .Route 04/10/22 .COMPLEX #120 tabs Allergies Allergy/AdvReac Type Severity Reaction Status Date / Time iodine Allergy Intermediate itching, Verified 05/01/22 18:10 swelling latex Allergy Intermediate rash, Verified 05/01/22 18:10 itching egg Allergy Mild Verified 05/01/22 18:10 atorvastatin AdvReac Intermediate Verified 05/01/22 18:10 diclofenac [From Voltaren] AdvReac Intermediate Nausea Verified 05/01/22 18:10 gabapentin AdvReac Intermediate Confusion Verified 05/01/22 18:10 lactase [From Dairy Aid] AdvReac Intermediate upset Verified 05/01/22 18:10 stomach montelukast [From Singulair] AdvReac Intermediate causes Verified 05/01/22 18:10 depression to worsen prednisone AdvReac Intermediate makes Verified 05/01/22 18:10 patient feel wired, heart racing pregabalin [From Lyrica] AdvReac Intermediate Nausea Verified 05/01/22 18:10 Proton Pump Inhibitors AdvReac Intermediate upset Verified 05/01/22 18:10 stomach NSAIDS (Non-Steroidal AdvReac Mild GI upset Verified 05/01/22 18:10 Anti-Inflamma peanuts Allergy Severe swelling Uncoded 04/27/22 17:41 of tongue and throat Review of Systems <Hank Merrill PA-C - Last Filed: 05/01/22 19:25> Review of Systems Narrative: GENERAL: Denies chills, fatigue, malaise, fever, sweats. HEENT: Denies sinus pain, ear pain, sore throat, difficulty swallowing, dizziness. RESPIRATORY: Denies dyspnea, cough, wheezing, hemoptysis, sputum. CARDIOVASCULAR: Denies chest pain, palpitations, orthopnea, edema, GASTROINTESTINAL: Denies nausea, vomiting, abdominal pain, diarrhea, constipation, melena. : Denies dysuria, frequency, incontinence, hematuria, urinary retention. MUSCULOSKELETAL: denies weakness, joint pain, or bony pain SKIN: Denies rash, skin lesions, or other NEUROLOGIC: Reports headache, Denies weakness, , numbness, change in speech, confusion, seizures, incoordination. PSYCHIATRIC: No concerning psychosocial issues. 12 point review of systems is negative except for those stated above Patient History <Hank Merrill PA-C - Last Filed: 05/01/22 19:25> Medical History All medications reviewed Anxiety (1960) Asthma (1977) Bilateral plantar fasciitis BPH w urinary obs/LUTS Bruising Cataracts, bilateral (2016) Cervical somatic dysfunction Chickenpox (Unknown) Chronic back pain (1994) Colon polyps (2017) Constipation (Unknown) Coronary artery disease (2005) Cranial somatic dysfunction Depression (1960) Ecchymosis Enlarged thyroid gland Excessive cerumen in left ear canal Fear of developing malignant neoplasm of urinary system FHx: thyroid cancer Fibromyalgia (1992) Foot pain (2016) Frequent urination (1999) Giant comedone Hernia History of hematuria History of hydrocele Low back pain Low testosterone (2015) Measles (Unknown) Myocardial infarction (2005) Nonallopathic lesion of upper extremities, not elsewhere classified Normal colonoscopy Osteopenia Pelvic somatic dysfunction Primary osteoarthritis, right shoulder PTSD (post-traumatic stress disorder) (1999) Right wrist pain Screening for osteoporosis Screening for prostate cancer Segmental and somatic dysfunction of abdomen and other regions Segmental and somatic dysfunction of lumbar region Segmental and somatic dysfunction of rib cage Segmental and somatic dysfunction of sacral region Segmental and somatic dysfunction of thoracic region Segmental and somatic dysfunction of upper extremity Sensation of feeling cold Shoulder pain (2016) Statin intolerance Testicular/scrotal pain TMJ (temporomandibular joint disorder) Surgical History History of hernia repair History of hydrocelectomy History of throat surgery (2010) History of vasectomy S/P repair of hydrocele Family History Father Congestive heart failure Mother Hyperlipidemia Heart disease Stroke Brother Cancer Mental health problem Brother Alcohol abuse Grandfather Coronary artery disease Myocardial infarction Grandmother Alzheimer's dementia Grandfather Stroke Grandmother Congestive heart failure Social History marital status: unmarried,single number of children: 0 household members: none Smoking Status: Never smoker alcohol intake: never substance use type: does not use Smoking Status: Never smoker alcohol intake frequency: 0-2 drinks per day Substance Use Type: does not use Exam <Hank Merrill PA-C - Last Filed: 05/01/22 19:25> Narrative Exam Narrative: GENERAL: Well-developed patient, in mild distress. HEAD: Atraumatic. Normocephalic. EYES: Pupils equal round and reactive. Extraocular motions intact. No scleral icterus. No injection or drainage. ENT: Nose without bleeding, purulent drainage. Throat without erythema, tonsillar hypertrophy or exudate. Airway patent. NECK: Trachea midline. Non tender CARDIOVASCULAR: Regular rate and rhythm without murmurs, gallops, or rubs. RESPIRATORY: Clear to auscultation. Breath sounds equal bilaterally. No wheezes, rales, or rhonchi. GASTROINTESTINAL: Abdomen soft, non-tender, nondistended. EXTREMITIES: No edema or joint tenderness. BACK: Nontender without deformity or crepitance. No flank tenderness. NEURO: AOx3. Cranial nerves 2-12 intact SKIN: No rash or erythema of visible areas Initial Vital Signs Initial Vital Signs: Vital Signs Temperature 98.5 F 05/01/22 18:05 Pulse Rate 86 05/01/22 18:05 Respiratory Rate 15 05/01/22 18:05 Blood Pressure 201/93 H 05/01/22 18:05 Pulse Oximetry 97 05/01/22 18:05 Oxygen Delivery Method 05/01/22 18:05 <Hilda Prieto DO - Last Filed: 05/02/22 03:52> Initial Vital Signs Initial Vital Signs: Vital Signs Temperature 98.5 F 05/01/22 18:05 Pulse Rate 86 05/01/22 18:05 Respiratory Rate 15 05/01/22 18:05 Blood Pressure 201/93 H 05/01/22 18:05 Pulse Oximetry 97 05/01/22 18:05 Oxygen Delivery Method 05/01/22 18:05 Course <Hank Merrill PA-C - Last Filed: 05/01/22 19:25> Orders Ordered: Discontinued Medications Clonazepam (Clonazepam 0.5 Mg Tablet) 0.5 mg PO NOW ONE Stop: 05/01/22 19:11 Last Admin: 05/01/22 19:33 Dose: 0.5 mg Documented By: VIOLETA Vital Signs Vital signs: Vital Signs - 8 hr 05/01/22 18:05 05/01/22 18:05 05/01/22 18:32 Temperature 98.5 F Pulse Rate 86 Respiratory Rate 15 Blood Pressure 201/93 H 201/93 H 176/95 H Pulse Oximetry 97 Oxygen Delivery Method Room Air 05/01/22 19:00 Temperature Pulse Rate Respiratory Rate Blood Pressure 177/90 H Pulse Oximetry Oxygen Delivery Method <Hilda Prieto DO - Last Filed: 05/02/22 03:52> Orders Ordered: Discontinued Medications Clonazepam (Clonazepam 0.5 Mg Tablet) 0.5 mg PO NOW ONE Stop: 05/01/22 19:11 Last Admin: 05/01/22 19:33 Dose: 0.5 mg Documented By: VIOLETA Vital Signs Vital signs: Vital Signs - 8 hr 05/01/22 18:05 05/01/22 18:05 05/01/22 18:32 Temperature 98.5 F Pulse Rate 86 Respiratory Rate 15 Blood Pressure 201/93 H 201/93 H 176/95 H Pulse Oximetry 97 Oxygen Delivery Method Room Air 05/01/22 19:00 Temperature Pulse Rate Respiratory Rate Blood Pressure 177/90 H Pulse Oximetry Oxygen Delivery Method Medical Decision Making <Hank Merrill PA-C - Last Filed: 05/01/22 19:25> Lab Data 05/01/22 18:20 05/01/22 18:20 Labs: Lab Results 05/01/22 05/01/22 05/01/22 Range/Units 18:16 18:20 18:20 WBC 10.4 (4.5-11.0) X10^3/uL RBC 5.39 (4.5-5.9) X10^6/uL Hgb 17.8 H (13.5-17.5) g/dL Hct 52.1 (41-53) % MCV 96.7 (80-100) fL MCH 33.1 (26-34) PG MCHC 34.2 (30-36) % RDW 13.6 (11.6-14.8) % Plt Count 238 (150-400) X10^3/uL Neut % (Auto) 88.3 H (50-75) % Lymph % (Auto) 6.6 L (25-40) % Luna % (Auto) 4.1 (3-14) % Eos % (Auto) 0.5 L (2-4) % Baso % (Auto) 0.5 (0-2) % Neut # (Auto) 9200 H (7237-9399) /uL Lymph # (Auto) 700 L (0616-0016) /uL Luna # (Auto) 400 (0-900) /uL Eos # (Auto) 0 (0-450) /uL Baso # (Auto) 0 (0-100) /uL Sodium 137 (137-145) mmol/L Potassium 3.9 (3.4-5.1) mmol/L Chloride 96 L (98-107) mmol/L Carbon Dioxide 30 (22-32) mmol/L BUN 7 L (9-20) mg/dL Creatinine 0.74 (0.66-1.25) mg/dL Estimated GFR > 60 (>60) mL/min BUN/Creatinine Ratio 9.5 (6-22) Glucose 106 (80-110) mg/dL Calcium 9.5 (8.4-10.2) mg/dL Total Bilirubin 0.6 (0.2-1.3) mg/dL AST 45 (17-59) IU/L ALT 35 (<50) IU/L Alkaline Phosphatase 48 (38-126) U/L Total Creatine Kinase 183 H (55-170) U/L CK-MB (CK-2) 2.38 H (<2.37) ng/mL CK-MB (CK-2) Rel Index 1.3 L (1.5-5.0) % Troponin I < 0.012 (0.01-0.034) ng/mL NT-Pro-B Natriuret Pep (<125) pg/mL Total Protein 7.4 (6.3-8.2) g/dL Albumin 4.7 (3.5-5.0) g/dL Globulin 2.7 (1.7-4.1) g/dL Albumin/Globulin Ratio 1.7 (1.0-2.8) Lipase 60 (23-300) U/L U Opiates 300ng/mL cut Negative (Negative) Ur Oxycodone Screen Negative (Negative) Urine Methadone Screen Negative (Negative) Ur Barbiturates Screen Negative (Negative) U Tricyclic Antidepress Negative (Negative) Ur Phencyclidine Scrn Negative (Negative) Ur Amphetamines Screen Negative (Negative) U Methamphetamines Scrn Negative (Negative) Ur MDMA Scrn (Ecstasy) Negative (Negative) U Benzodiazepines Scrn Negative (Negative) Urine Cocaine Screen Negative (Negative) U Marijuana (THC) Screen Negative (Negative) 05/01/22 Range/Units 18:20 WBC (4.5-11.0) X10^3/uL RBC (4.5-5.9) X10^6/uL Hgb (13.5-17.5) g/dL Hct (41-53) % MCV (80-100) fL MCH (26-34) PG MCHC (30-36) % RDW (11.6-14.8) % Plt Count (150-400) X10^3/uL Neut % (Auto) (50-75) % Lymph % (Auto) (25-40) % Luna % (Auto) (3-14) % Eos % (Auto) (2-4) % Baso % (Auto) (0-2) % Neut # (Auto) (4274-5563) /uL Lymph # (Auto) (4386-9823) /uL Luna # (Auto) (0-900) /uL Eos # (Auto) (0-450) /uL Baso # (Auto) (0-100) /uL Sodium (137-145) mmol/L Potassium (3.4-5.1) mmol/L Chloride (98-107) mmol/L Carbon Dioxide (22-32) mmol/L BUN (9-20) mg/dL Creatinine (0.66-1.25) mg/dL Estimated GFR (>60) mL/min BUN/Creatinine Ratio (6-22) Glucose (80-110) mg/dL Calcium (8.4-10.2) mg/dL Total Bilirubin (0.2-1.3) mg/dL AST (17-59) IU/L ALT (<50) IU/L Alkaline Phosphatase (38-126) U/L Total Creatine Kinase (55-170) U/L CK-MB (CK-2) (<2.37) ng/mL CK-MB (CK-2) Rel Index (1.5-5.0) % Troponin I (0.01-0.034) ng/mL NT-Pro-B Natriuret Pep 243 H (<125) pg/mL Total Protein (6.3-8.2) g/dL Albumin (3.5-5.0) g/dL Globulin (1.7-4.1) g/dL Albumin/Globulin Ratio (1.0-2.8) Lipase (23-300) U/L U Opiates 300ng/mL cut (Negative) Ur Oxycodone Screen (Negative) Urine Methadone Screen (Negative) Ur Barbiturates Screen (Negative) U Tricyclic Antidepress (Negative) Ur Phencyclidine Scrn (Negative) Ur Amphetamines Screen (Negative) U Methamphetamines Scrn (Negative) Ur MDMA Scrn (Ecstasy) (Negative) U Benzodiazepines Scrn (Negative) Urine Cocaine Screen (Negative) U Marijuana (THC) Screen (Negative) Imaging Data Chest x-ray: Radiologist's Impression: [address] [address] XRay Report Signed Patient: Eloy Keen MR#: [id number] : 1960 Acct:[id number] Age/Sex: 62 / M Date of Service: 05/01/22 Loc: ED Accession Number: [id number] ?? Procedure: XR chest 1V Ordering Provider: Hilda Prieto D.O. PROCEDURE:? XR CHEST 1V ? INDICATIONS:? htn, dizzy ? TECHNIQUE:? One view of the chest was acquired.? ? COMPARISON:? [facility], CR, XR CHEST 2V, 04/16/2021, 17:25. ? FINDINGS:? ? Surgical changes and devices:? None.? ? Lungs and pleura:? Lungs are clear.? No pleural effusions or pneumothorax.? ? Mediastinum:? Mediastinal contours appear normal.? Heart size is normal.? ? Bones and chest wall:? No suspicious bony lesions.? Mild dextroconvex scoliotic curvature is seen.? Age-appropriate bony degenerative changes are seen. ? ? Overlying soft tissues appear unremarkable.? IMPRESSION:? ? Portable chest within normal limits for age. ? ? ? Dictated by: Darwin Potter M.D. on 05/01/2022 at 17:39 ? ? Approved by: Darwin Potter M.D. on 05/01/2022 at 17:39 ? CT scan - head: Radiologist's Impression: [place] [address] CT Scan Report Signed Patient: Eloy Keen MR#: [id number] : 1960 Acct:[id number] Age/Sex: 62 / M Date of Service: 05/01/22 Loc: ED Accession Number: [id number] ?? Procedure: CT head/brain wo con Ordering Provider: Hilda Prieto D.O. PROCEDURE:? CT HEAD/BRAIN WO CON ? INDICATIONS:? htn, dizzy ? TECHNIQUE:? Noncontrast 4.5 mm thick angled axial sections acquired from the foramen magnum to the vertex, with coronal and sagittal reformats.? For radiation dose reduction, the following was used:? automated exposure control, adjustment of mA and/or kV according to patient size.? ? COMPARISON:? None. ? FINDINGS:? Image quality:? Excellent.? ? CSF spaces:? Basal cisterns are patent.? No extra-axial fluid collections.? The ventricles are symmetric in size and shape.? ? Brain:? No intracranial bleeds or masses.? There is cerebral volume loss for age, with resultant ventricular and sulcal prominence.? There are periventricular and deep white matter chronic small vessel ischemic changes.? There is intracranial internal carotid artery atherosclerosis.? ? Skull and face:? Calvarium and visualized facial bones appear intact, without suspicious lesions.? ? Sinuses:? Visualized sinuses and mastoids are clear.? A left-sided ty bullosa is incidentally noted. ? IMPRESSION:? No acute intracranial hemorrhage is seen.? ? No acute intracranial process is seen.? ? Dictated by: Darwin Potter M.D. on 05/01/2022 at 17:41 ? ? Approved by: Darwin Potter M.D. on 05/01/2022 at 17:41 ? ECG Data Interpretation: EKG is normal sinus rhythm rate 70 and free of any signs of ischemia or ectopy. No ST segmental elevation or depression. No T wave inversions MDM Narrative Medical decision making narrative: MDM * differential diagnosis includes but not limited to acute CVA, hypertension * Prior records reviewed: Patient has a history of hypertension * My lab interpretation: Lab work unremarkable. Troponin within normal limits. CBC and CMP unremarkable. Patient has elevated BNP but then record review does have a history of CHF. * My imgaing interpretation: Chest x-ray and head CT unremarkable * Clinical Decision Rules/Scores evaluated: None * Independent discussions with: None ED Course: This is a 62-year-old male presents emergency department for medical evaluation to be deemed fit for penitentiary. Patient's blood pressure initially was elevated with systolic of roughly 200. This improved over time without intervention. To approximately 170 systolic. Patient's home dose of clonazepam will be given prior to discharge to further decrease his blood pressure. Chest x-ray and head CT unremarkable. Low concern for any kind of CVA as patient did report a head headache. Completely normal neuro exam. Patient's cardiac workup was also completely negative, troponins within the lower limits as well as EKG. Shared Decision Making: Discussed plan with patient and chief learning officer Social Considerations: None Disposition: Discharge released to penitentiary with PD <Hilda Prieto DO - Last Filed: 05/02/22 03:52> Lab Data Labs: Lab Results 05/01/22 05/01/22 05/01/22 Range/Units 18:16 18:20 18:20 WBC 10.4 (4.5-11.0) X10^3/uL RBC 5.39 (4.5-5.9) X10^6/uL Hgb 17.8 H (13.5-17.5) g/dL Hct 52.1 (41-53) % MCV 96.7 (80-100) fL MCH 33.1 (26-34) PG MCHC 34.2 (30-36) % RDW 13.6 (11.6-14.8) % Plt Count 238 (150-400) X10^3/uL Neut % (Auto) 88.3 H (50-75) % Lymph % (Auto) 6.6 L (25-40) % Luna % (Auto) 4.1 (3-14) % Eos % (Auto) 0.5 L (2-4) % Baso % (Auto) 0.5 (0-2) % Neut # (Auto) 9200 H (7104-2536) /uL Lymph # (Auto) 700 L (9870-3093) /uL Luna # (Auto) 400 (0-900) /uL Eos # (Auto) 0 (0-450) /uL Baso # (Auto) 0 (0-100) /uL Sodium 137 (137-145) mmol/L Potassium 3.9 (3.4-5.1) mmol/L Chloride 96 L (98-107) mmol/L Carbon Dioxide 30 (22-32) mmol/L BUN 7 L (9-20) mg/dL Creatinine 0.74 (0.66-1.25) mg/dL Estimated GFR > 60 (>60) mL/min BUN/Creatinine Ratio 9.5 (6-22) Glucose 106 (80-110) mg/dL Calcium 9.5 (8.4-10.2) mg/dL Total Bilirubin 0.6 (0.2-1.3) mg/dL AST 45 (17-59) IU/L ALT 35 (<50) IU/L Alkaline Phosphatase 48 (38-126) U/L Total Creatine Kinase 183 H (55-170) U/L CK-MB (CK-2) 2.38 H (<2.37) ng/mL CK-MB (CK-2) Rel Index 1.3 L (1.5-5.0) % Troponin I < 0.012 (0.01-0.034) ng/mL NT-Pro-B Natriuret Pep (<125) pg/mL Total Protein 7.4 (6.3-8.2) g/dL Albumin 4.7 (3.5-5.0) g/dL Globulin 2.7 (1.7-4.1) g/dL Albumin/Globulin Ratio 1.7 (1.0-2.8) Lipase 60 (23-300) U/L U Opiates 300ng/mL cut Negative (Negative) Ur Oxycodone Screen Negative (Negative) Urine Methadone Screen Negative (Negative) Ur Barbiturates Screen Negative (Negative) U Tricyclic Antidepress Negative (Negative) Ur Phencyclidine Scrn Negative (Negative) Ur Amphetamines Screen Negative (Negative) U Methamphetamines Scrn Negative (Negative) Ur MDMA Scrn (Ecstasy) Negative (Negative) U Benzodiazepines Scrn Negative (Negative) Urine Cocaine Screen Negative (Negative) U Marijuana (THC) Screen Negative (Negative) 05/01/22 Range/Units 18:20 WBC (4.5-11.0) X10^3/uL RBC (4.5-5.9) X10^6/uL Hgb (13.5-17.5) g/dL Hct (41-53) % MCV (80-100) fL MCH (26-34) PG MCHC (30-36) % RDW (11.6-14.8) % Plt Count (150-400) X10^3/uL Neut % (Auto) (50-75) % Lymph % (Auto) (25-40) % Luna % (Auto) (3-14) % Eos % (Auto) (2-4) % Baso % (Auto) (0-2) % Neut # (Auto) (2661-9321) /uL Lymph # (Auto) (7120-8172) /uL Luna # (Auto) (0-900) /uL Eos # (Auto) (0-450) /uL Baso # (Auto) (0-100) /uL Sodium (137-145) mmol/L Potassium (3.4-5.1) mmol/L Chloride (98-107) mmol/L Carbon Dioxide (22-32) mmol/L BUN (9-20) mg/dL Creatinine (0.66-1.25) mg/dL Estimated GFR (>60) mL/min BUN/Creatinine Ratio (6-22) Glucose (80-110) mg/dL Calcium (8.4-10.2) mg/dL Total Bilirubin (0.2-1.3) mg/dL AST (17-59) IU/L ALT (<50) IU/L Alkaline Phosphatase (38-126) U/L Total Creatine Kinase (55-170) U/L CK-MB (CK-2) (<2.37) ng/mL CK-MB (CK-2) Rel Index (1.5-5.0) % Troponin I (0.01-0.034) ng/mL NT-Pro-B Natriuret Pep 243 H (<125) pg/mL Total Protein (6.3-8.2) g/dL Albumin (3.5-5.0) g/dL Globulin (1.7-4.1) g/dL Albumin/Globulin Ratio (1.0-2.8) Lipase (23-300) U/L U Opiates 300ng/mL cut (Negative) Ur Oxycodone Screen (Negative) Urine Methadone Screen (Negative) Ur Barbiturates Screen (Negative) U Tricyclic Antidepress (Negative) Ur Phencyclidine Scrn (Negative) Ur Amphetamines Screen (Negative) U Methamphetamines Scrn (Negative) Ur MDMA Scrn (Ecstasy) (Negative) U Benzodiazepines Scrn (Negative) Urine Cocaine Screen (Negative) U Marijuana (THC) Screen (Negative) ECG Data Interpretation: EKG is normal sinus rhythm rate 70 and free of any signs of ischemia or ectopy. No ST segmental elevation or depression. No T wave inversions Mank: Patient has sinus rhythm rate of 70 [place] 168 QRS of 96 QTC 434. No acute ST changes appreciated. No priors for comparison. Left anterior fascicular blo ck. Discharge Plan Departure Patient Disposition: Home Clinical Impression: Headache, Elevated blood pressure reading Instructions: DI for High Blood Pressure Activity Restrictions/Additional Instructions: Thank you for coming to the [facility] Emergency Department today. Patient is medically cleared for penitentiary. Please have him resume his normal home medications once evaluated by the Medical penitentiary team. Chest x-ray and head CT unremarkable. No evidence of any kind of intracranial bleed. Lab work also unremarkable. No evidence of any kind of heart attack. I hope you feel better soon. Prescriptions: No Action Lactobacillus acidophilus capsule 1 cap PO DAILY Ubiquinol capsule 50 mg PO DAILY acetaminophen [Pain Reliever ES(acetaminophn)] 500 mg tablet See Rx Instructions .ROUTE .COMPLEX Qty: 120 1RF Dose Instruction: TAKE 1 TABLET BY MOUTH FOUR TIMES DAILY NEEDED FOR PAIN Rx Instructions: TAKE 1 TABLET BY MOUTH FOUR TIMES DAILY NEEDED FOR PAIN lidocaine 5 % ointment 1 applictn TOP BID-QID PRN (Reason: pain) Qty: 30 5RF fexofenadine [Sharon Allergy] 180 mg tablet 180 mg PO DAILY Qty: 30 11RF clotrimazole [Antifungal (clotrimazole)] 1 % cream 1 applic topical BID Qty: 30 8RF trazodone 50 mg tablet 75 mg PO BEDTIME PRN (Reason: Sleep) Qty: 135 1RF Pulmicort Flexhaler 180 mcg/actuation aerosol powdr breath activated 1 inh INHALATION BID Qty: 1 12RF nitroglycerin [Nitrostat] 0.4 mg tablet, sublingual 0.4 mg SL Q5-15M PRN (Reason: Chest Pain) Qty: 25 5RF Ventolin HFA 90 mcg/actuation HFA aerosol inhaler 1 puff INHALATION Q4H PRN (Reason: Wheezing) Qty: 6.7 11RF simethicone 80 mg tablet,chewable See Rx Instructions .ROUTE .COMPLEX Qty: 180 5RF Dose Instruction: CHEW AND SWALLOW 2 TABLETS BY MOUTH THREE TIMES DAILY NEEDED FOR FLATULENCE Rx Instructions: CHEW AND SWALLOW 2 TABLETS BY MOUTH THREE TIMES DAILY NEEDED FOR FLATULENCE clonazepam 0.5 mg tablet See Rx Instructions .ROUTE .COMPLEX Qty: 45 5RF Rx Instructions: Take 1 tablet by mouth up to twice daily as needed for anxiety Pro-Biotic 400 mg PO DAILY Qty: 1 0RF CBD liquid extract drops 1 ml PO TID Qty: 1 0RF Papaya Digestive Enzymes 65 mg PO TID Qty: 3 0RF Rx Instructions: Take 3 tabs by mouth three times daily methocarbamol 500 mg tablet See Rx Instructions .ROUTE .COMPLEX Qty: 60 3RF Dose Instruction: TAKE 1 TABLET BY MOUTH TWICE DAILY NEEDED FOR MUSCLE SPASMCAMBER BRAND ONLY Rx Instructions: TAKE 1 TABLET BY MOUTH TWICE DAILY NEEDED FOR MUSCLE SPASMCAMBER BRAND ONLY escitalopram oxalate 20 mg tablet 20 mg PO .Twice daily Qty: 60 5RF tramadol 50 mg tablet See Rx Instructions .ROUTE .COMPLEX Qty: 120 0RF Rx Instructions: Take 1 tablet by mouth every 6 hours as needed for pain psyllium husk [Metamucil] 0.4 gram capsule 1.2 g PO TID Qty: 270 11RF Praluent Pen 75 mg/mL pen injector 75 mg SUBCUT Q2W Qty: 2 11RF saw palmetto 450 mg capsule 1,800 mg PO TID Rx Instructions: give with food (meal/snack) cholecalciferol (vitamin D3) 50 mcg/drop (2, 000 unit/drop) drops 50 mcg PO DAILY curcumin PO arnica gel topical chamomile caps PO multivitamin with minerals Tablet 1 tab PO DAILY vitamin b12 PO magnesium carb,citrate,oxide 300 mg magnesium tablet PO Referrals: Cliff Shook DO [Primary Care Provider] - Stand Alone Forms: Patient Portal/API <Hilda Prieto DO - Last Filed: 05/02/22 03:52> Cosign ED Attending Coskeithature Attestation: I was immediately available in the department for consultation. Documentation has been reviewed. EKG was reviewed. Case is discussed.
[2022-05-01] MEDS: clonazePAM 0.5 MG TABLET PO (19:33)
[2022-05-01 19:34] VITALS: BP 162/84; PULSE 74; RESP 16; TEMP 36.3; O2SAT 99
== END 2022-05-01 19:36 | disposition home or self-care (01) ==
PROVIDERS: Emergency Medicine; Emergency Provider Physician Assistant Medical; PCP Family Medicine
DX: I10 Essential (primary) hypertension (principal); R51.9 Headache, unspecified; Z79.899 Other long term (current) drug therapy
CPT/HCPCS: 36415; 70450; 71045; 80053; 80305; 82550; 82553; 83690; 83880; 84484; 85025; 93005; 93010; 99284

== ENCOUNTER → 2022-05-29 15:40 | Outpatient (CLI) | payer OTHER, MEDICAID, SELFPAY ==
[2022-05-29 16:20] LABS: Add Manual Diff / Slide Review NO; Basophils Absolute Auto 100 /uL (0-100); Basophils Percent Auto 0.7 % (0-2); Eosinophils Absolute Auto 100 /uL (0-450); Eosinophils Percent Auto 0.9 % (2-4); Hematocrit 48.7 % (41-53); Hemoglobin 16.5 g/dL (13.5-17.5); Lymphocytes Absolute Auto 1000 /uL (1100-4500); Lymphocytes Percent Auto 10.4 % (25-40); Mean Corpuscular Hemoglobin 32.5 PG (26-34); Mean Corpuscular Volume 95.8 fL (80-100); Monocytes Absolute Auto 500 /uL (0-900); Monocytes Percent Auto 5.3 % (3-14); Neutrophils Absolute Auto 7700 /uL (1500-7000); Neutrophils Percent Auto 82.7 % (50-75); Platelet Count 229 X10^3/uL (150-400); Red Blood Cell Count 5.08 X10^6/uL (4.5-5.9); White Blood Cell Count 9.4 X10^3/uL (4.5-11.0)
[2022-05-29 16:48] LABS: Alanine Aminotransferase 29 IU/L (<50); Albumin 4.1 g/dL (3.5-5.0); Albumin Globulin Ratio 1.9 (1.0-2.8); Alkaline Phosphatase 36 U/L (38-126); Aspartate Aminotransferase 36 IU/L (17-59); BUN Creatinine Ratio 11.3 (6-22); Bilirubin Total 0.4 mg/dL (0.2-1.3); Blood Urea Nitrogen 8 mg/dL (9-20); Calcium 8.9 mg/dL (8.4-10.2); Carbon Dioxide 34 mmol/L (22-32); Chloride 98 mmol/L (98-107); Cholesterol 129 mg/dL (140-199); Estimated Glomerular Filt Rate > 60 mL/min (>60); Globulin 2.2 g/dL (1.7-4.1); Glucose 96 mg/dL (80-110); HDL Cholesterol 48 mg/dL (40-60); HEMOLYSIS 31 (0-50); LDL Cholesterol Calculated 32 mg/dL (<100); Potassium 3.8 mmol/L (3.4-5.1); Sodium 136 mmol/L (137-145); Total Protein 6.3 g/dL (6.3-8.2); Triglycerides 244 mg/dL (35-150)
[2022-05-29 16:51] LABS: Hemoglobin A1C% w Est Avg Glu 5.2 % (4.0-6.0)
[2022-05-29 17:17] LABS: TSH w/ Reflex to FT4 0.19 uIU/mL (0.47-4.68)
[2022-05-29 18:09] LABS: Free T4, Direct Thyroxine 1.16 ng/dL (0.78-2.19)
== END ==
PROVIDERS: Internal Medicine Cardiovascular Disease; PCP Family Medicine; Referring Provider Internal Medicine Cardiovascular Disease; Visit Provider Internal Medicine Cardiovascular Disease
DX: E78.2 Mixed hyperlipidemia (principal); Z13.1 Encounter for screening for diabetes mellitus; I25.10 Atherosclerotic heart disease of native coronary artery without angina pectoris; Z13.29 Encounter for screening for other suspected endocrine disorder; I10 Essential (primary) hypertension
CPT/HCPCS: 36415; 80053; 80061; 83036; 84439; 84443; 85025

== ENCOUNTER 2022-06-09 13:46 | Emergency (ER) | payer OTHER, MEDICAID, SELFPAY ==
[2022-06-09 13:55] VITALS: BP 174/90; PULSE 73; RESP 18; TEMP 36.6; O2SAT 96; BMI 25.0
[2022-06-09 15:09] LABS: Influenza A - CEPHEID Flu A NEGATIVE (NEGATIVE); Influenza B - CEPHEID Flu B NEGATIVE (NEGATIVE)
[2022-06-09 15:20] LABS: COVID-19 CEPHEID 4-PLEX PCR POSITIVE (Negative)
== END 2022-06-09 15:10 | disposition left against medical advice (07) ==
PROVIDERS: Emergency Provider Emergency Medicine; PCP Family Medicine
DX: R05.9 Cough, unspecified (principal); R51.9 Headache, unspecified; J02.9 Acute pharyngitis, unspecified
CPT/HCPCS: 87635; 99281; C9803